=== PATIENT | female | born 1990 | race Caucasian/White ===

== ENCOUNTER 2020-04-02 14:09 | Outpatient (REF) | payer OTHER, SELFPAY ==
[2020-04-02 15:09] LABS: Eosinophils Absolute Auto 0.1 X10*3/uL (0.0-0.4); MANUAL DIFF FLAG SCAN; Mean Corpuscular Volume 78.8 fL (80-98); SCAN SMEAR FLAG 1
[2020-04-02 15:11] LABS: Basophils Percent Auto 0.5 % (0-2); Hematocrit 36.8 % (37-47); Imm Gran Abs Auto 0.01 X10*3/uL (0.00-0.03); Imm Gran Pct Auto 0.2 % (0.0-0.4); Lymphocytes Absolute Auto 1.5 X10*3/uL (1.2-4.9); Lymphocytes Percent Auto 33.9 % (20-40); Mean Corpuscular HGB Conc 32.6 g/dl (31.0-35.0); Mean Corpuscular Hemoglobin 25.7 pg (27.0-33.0); Monocytes Absolute Auto 0.4 X10*3/uL (0.1-1.2); Monocytes Percent Auto 8.4 % (2-11); Neutrophils Absolute Auto 2.4 X10*3/uL (2.0-8.3); Red Blood Count 4.67 X10*6/uL (4.20-5.50); Red Cell Distribution Width 13.9 % (11.0-16.0); White Blood Count 4.4 X10*3/uL (4.8-10.8)
[2020-04-02 15:16] LABS: PLT ABN DIST 1; Platelet Count 29 X10*3/uL (160-400)
[2020-04-02 15:18] LABS: Platelet Count 26 X10*3/uL (160-400)
[2020-04-02 15:33] LABS: SLIDE REVIEW VERIFIED
== END 2020-04-02 14:10 | disposition home or self-care (01) ==
LOC: HO.LAB 14:09
PROVIDERS: PCP Internal Medicine Medical Oncology; Visit Provider Internal Medicine Medical Oncology
DX: D69.3 Immune thrombocytopenic purpura (principal)
CPT/HCPCS: 36415; 85025; 85049

== ENCOUNTER 2020-04-16 11:12 | Outpatient (REF) | payer OTHER, SELFPAY ==
[2020-04-16 12:43] LABS: Eosinophils Absolute Auto 0.1 X10*3/uL (0.0-0.4); MANUAL DIFF FLAG SCAN; Mean Corpuscular HGB Conc 32.4 g/dl (31.0-35.0); Red Cell Distribution Width 13.8 % (11.0-16.0); SCAN SMEAR FLAG 1
[2020-04-16 12:45] LABS: Basophils Percent Auto 0.8 % (0-2); Hematocrit 36.4 % (37-47); Hemoglobin 11.8 g/dl (12.0-16.0); Imm Gran Abs Auto 0.01 X10*3/uL (0.00-0.03); Imm Gran Pct Auto 0.3 % (0.0-0.4); Lymphocytes Absolute Auto 1.5 X10*3/uL (1.2-4.9); Lymphocytes Percent Auto 38.3 % (20-40); Mean Corpuscular Hemoglobin 25.3 pg (27.0-33.0); Mean Corpuscular Volume 77.9 fL (80-98); Monocytes Absolute Auto 0.4 X10*3/uL (0.1-1.2); Monocytes Percent Auto 9.4 % (2-11); Neutrophils Absolute Auto 1.9 X10*3/uL (2.0-8.3); Neutrophils Percent Auto 49.2 % (45-73); Red Blood Count 4.67 X10*6/uL (4.20-5.50); White Blood Count 3.9 X10*3/uL (4.8-10.8)
[2020-04-16 13:22] LABS: PLT ABN DIST 1; Platelet Count 52 X10*3/uL (160-400)
[2020-04-16 14:30] LABS: SLIDE REVIEW VERIFIED
== END 2020-04-16 11:13 | disposition home or self-care (01) ==
LOC: HO.LAB 11:12
PROVIDERS: Visit Provider Internal Medicine Medical Oncology
DX: D69.3 Immune thrombocytopenic purpura (principal)
CPT/HCPCS: 36415; 85025; 85049

== ENCOUNTER 2020-05-14 11:15 | Outpatient (REF) | payer OTHER, SELFPAY ==
[2020-05-14 13:37] LABS: MANUAL DIFF FLAG NO
[2020-05-14 13:54] LABS: Basophils Percent Auto 0.5 % (0-2); Eosinophils Absolute Auto 0.1 X10*3/uL (0.0-0.4); Hemoglobin 12.1 g/dl (12.0-16.0); Imm Gran Abs Auto 0.01 X10*3/uL (0.00-0.03); Imm Gran Pct Auto 0.3 % (0.0-0.4); Lymphocytes Absolute Auto 1.3 X10*3/uL (1.2-4.9); Lymphocytes Percent Auto 33.8 % (20-40); Mean Corpuscular HGB Conc 32.7 g/dl (31.0-35.0); Mean Corpuscular Hemoglobin 25.9 pg (27.0-33.0); Mean Corpuscular Volume 79.1 fL (80-98); Monocytes Absolute Auto 0.4 X10*3/uL (0.1-1.2); Monocytes Percent Auto 9.2 % (2-11); Neutrophils Absolute Auto 2.1 X10*3/uL (2.0-8.3); Neutrophils Percent Auto 54.2 % (45-73); Red Blood Count 4.68 X10*6/uL (4.20-5.50); Red Cell Distribution Width 13.7 % (11.0-16.0); White Blood Count 3.9 X10*3/uL (4.8-10.8)
[2020-05-14 13:55] LABS: Platelet Count 87 X10*3/uL (160-400)
[2020-05-14 14:22] LABS: Platelet Count (Citrate) 76 X10*3/uL (150-310)
== END 2020-05-14 11:16 | disposition home or self-care (01) ==
LOC: HO.10HDL 11:15
PROVIDERS: PCP Internal Medicine Medical Oncology; Visit Provider Internal Medicine Medical Oncology
DX: D69.3 Immune thrombocytopenic purpura (principal)
CPT/HCPCS: 36415; 85025

== ENCOUNTER 2020-06-24 13:06 | Outpatient (REF) | payer OTHER, SELFPAY ==
[2020-06-24 13:42] LABS: MANUAL DIFF FLAG NO
[2020-06-24 13:54] LABS: Basophils Percent Auto 0.7 % (0-2); Eosinophils Absolute Auto 0.1 X10*3/uL (0.0-0.4); Eosinophils Percent Auto 2.5 % (0-4); Hemoglobin 12.7 g/dl (12.0-16.0); Imm Gran Abs Auto 0.01 X10*3/uL (0.00-0.03); Imm Gran Pct Auto 0.2 % (0.0-0.4); Lymphocytes Absolute Auto 1.5 X10*3/uL (1.2-4.9); Lymphocytes Percent Auto 33.3 % (20-40); Mean Corpuscular HGB Conc 31.8 g/dl (31.0-35.0); Mean Corpuscular Hemoglobin 24.9 pg (27.0-33.0); Mean Corpuscular Volume 78.4 fL (80-98); Mean Platelet Volume 12.5 fL (9.4-12.3); Monocytes Absolute Auto 0.3 X10*3/uL (0.1-1.2); Monocytes Percent Auto 7.7 % (2-11); Neutrophils Absolute Auto 2.5 X10*3/uL (2.0-8.3); Neutrophils Percent Auto 55.6 % (45-73); Platelet Count 279 X10*3/uL (160-400); Red Cell Distribution Width 13.5 % (11.0-16.0); White Blood Count 4.4 X10*3/uL (4.8-10.8)
[2020-06-24 14:14] LABS: Platelet Count (Citrate) 261 X10*3/uL (150-310)
== END 2020-06-24 13:07 | disposition home or self-care (01) ==
LOC: HO.LAB 13:06
PROVIDERS: PCP Internal Medicine Medical Oncology; Visit Provider Internal Medicine Medical Oncology
DX: D69.3 Immune thrombocytopenic purpura (principal)
CPT/HCPCS: 36415; 85025

== ENCOUNTER 2020-07-08 13:23 | Outpatient (REF) | payer OTHER, SELFPAY ==
[2020-07-08 14:21] LABS: Eosinophils Absolute Auto 0.2 X10*3/uL (0.0-0.4); Imm Gran Abs Auto 0.03 X10*3/uL (0.00-0.03); Imm Gran Pct Auto 0.6 % (0.0-0.4)
[2020-07-08 14:23] LABS: Basophils Percent Auto 0.6 % (0-2); Hematocrit 36.2 % (37-47); Hemoglobin 11.9 g/dl (12.0-16.0); Lymphocytes Absolute Auto 1.5 X10*3/uL (1.2-4.9); Lymphocytes Percent Auto 28.3 % (20-40); Mean Corpuscular HGB Conc 32.9 g/dl (31.0-35.0); Mean Corpuscular Hemoglobin 25.4 pg (27.0-33.0); Mean Corpuscular Volume 77.4 fL (80-98); Monocytes Absolute Auto 0.4 X10*3/uL (0.1-1.2); Monocytes Percent Auto 7.9 % (2-11); Neutrophils Absolute Auto 3.2 X10*3/uL (2.0-8.3); Neutrophils Percent Auto 59.6 % (45-73); Platelet Count 123 X10*3/uL (160-400); Red Blood Count 4.68 X10*6/uL (4.20-5.50); Red Cell Distribution Width 13.4 % (11.0-16.0); White Blood Count 5.3 X10*3/uL (4.8-10.8)
[2020-07-08 14:37] LABS: MANUAL DIFF FLAG NO
[2020-07-08 14:41] LABS: Alanine Aminotransferase 18 U/L (0-31); Albumin Level 3.9 g/dL (3.5-5.0); Alkaline Phosphatase 107 U/L (39-117); Anion Gap 11 (12-20); Aspartate Amino Transferase 16 U/L (5-31); Bilirubin Total 0.6 mg/dL (0.0-1.0); Blood Urea Nitrogen 13 mg/dL (9-16); Calcium 8.4 mg/dL (8.4-10.2); Carbon Dioxide 28 mmol/L (22-29); Chloride 106 mmol/L (96-108); Estimated Glomerular Filt Rate > 60; Glucose Random 90 mg/dL (60-115); Sodium 141 mmol/L (135-145); Total Protein 7.1 g/dL (6.5-8.0)
== END 2020-07-08 13:24 | disposition home or self-care (01) ==
LOC: HO.LAB 13:23
PROVIDERS: Visit Provider Internal Medicine Medical Oncology
DX: D69.3 Immune thrombocytopenic purpura (principal)
CPT/HCPCS: 36415; 80053; 85025

== ENCOUNTER 2020-09-09 15:49 | Outpatient (REF) | payer OTHER, SELFPAY ==
[2020-09-09 16:50] LABS: Basophils Percent Auto 0.4 % (0-2); MANUAL DIFF FLAG SCAN; SCAN SMEAR FLAG 1
[2020-09-09 16:52] LABS: Eosinophils Absolute Auto 0.1 X10*3/uL (0.0-0.4); Eosinophils Percent Auto 1.6 % (0-4); Hematocrit 38.4 % (37-47); Hemoglobin 12.6 g/dl (12.0-16.0); Imm Gran Abs Auto 0.01 X10*3/uL (0.00-0.03); Imm Gran Pct Auto 0.2 % (0.0-0.4); Lymphocytes Absolute Auto 1.4 X10*3/uL (1.2-4.9); Lymphocytes Percent Auto 31.7 % (20-40); Mean Corpuscular HGB Conc 32.8 g/dl (31.0-35.0); Mean Corpuscular Hemoglobin 25.8 pg (27.0-33.0); Mean Corpuscular Volume 78.5 fL (80-98); Monocytes Absolute Auto 0.4 X10*3/uL (0.1-1.2); Monocytes Percent Auto 9.4 % (2-11); Neutrophils Absolute Auto 2.5 X10*3/uL (2.0-8.3); Neutrophils Percent Auto 56.7 % (45-73); Red Blood Count 4.89 X10*6/uL (4.20-5.50); White Blood Count 4.5 X10*3/uL (4.8-10.8)
[2020-09-09 16:57] LABS: PLT ABN DIST 1
[2020-09-09 17:19] LABS: Platelet Count (Citrate) 29 X10*3/uL (150-310)
[2020-09-09 18:06] LABS: Platelet Count 36 X10*3/uL (160-400)
[2020-09-09 18:07] LABS: SLIDE REVIEW VERIFIED
== END 2020-09-09 15:50 | disposition home or self-care (01) ==
LOC: HO.LAB 15:49
PROVIDERS: PCP Internal Medicine Medical Oncology; Visit Provider Internal Medicine Medical Oncology
DX: D69.3 Immune thrombocytopenic purpura (principal)
CPT/HCPCS: 36415; 85025

== ENCOUNTER 2020-09-22 16:08 | Outpatient (REF) | payer OTHER, SELFPAY ==
[2020-09-22 16:24] LABS: MANUAL DIFF FLAG NO
[2020-09-22 16:27] LABS: Basophils Percent Auto 0.4 % (0-2); Eosinophils Percent Auto 0.8 % (0-4); Hematocrit 39.5 % (37-47); Hemoglobin 12.6 g/dl (12.0-16.0); Imm Gran Abs Auto 0.01 X10*3/uL (0.00-0.03); Imm Gran Pct Auto 0.2 % (0.0-0.4); Lymphocytes Absolute Auto 1.8 X10*3/uL (1.2-4.9); Mean Corpuscular HGB Conc 31.9 g/dl (31.0-35.0); Mean Corpuscular Hemoglobin 25.4 pg (27.0-33.0); Mean Corpuscular Volume 79.5 fL (80-98); Mean Platelet Volume 11.9 fL (9.4-12.3); Monocytes Absolute Auto 0.5 X10*3/uL (0.1-1.2); Monocytes Percent Auto 9.3 % (2-11); Neutrophils Absolute Auto 2.9 X10*3/uL (2.0-8.3); Neutrophils Percent Auto 55.3 % (45-73); Platelet Count 283 X10*3/uL (160-400); Red Blood Count 4.97 X10*6/uL (4.20-5.50); Red Cell Distribution Width 13.7 % (11.0-16.0); White Blood Count 5.2 X10*3/uL (4.8-10.8)
[2020-09-22 16:34] LABS: Platelet Count (Citrate) 282 X10*3/uL (150-310)
== END 2020-09-22 16:09 | disposition home or self-care (01) ==
LOC: HO.LAB 16:08
PROVIDERS: Visit Provider Internal Medicine Medical Oncology
DX: D69.3 Immune thrombocytopenic purpura (principal)
CPT/HCPCS: 36415; 85025

== ENCOUNTER 2020-10-09 10:01 | Outpatient (REF) | payer OTHER, SELFPAY ==
[2020-10-09 10:58] LABS: Imm Gran Abs Auto 0.02 X10*3/uL (0.00-0.03); Imm Gran Pct Auto 0.4 % (0.0-0.4); MANUAL DIFF FLAG SCAN; Mean Corpuscular Volume 79.1 fL (80-98); Monocytes Percent Auto 10.5 % (2-11); Red Cell Distribution Width 13.6 % (11.0-16.0); SCAN SMEAR FLAG 1
[2020-10-09 11:00] LABS: Basophils Percent Auto 0.6 % (0-2); Eosinophils Absolute Auto 0.1 X10*3/uL (0.0-0.4); Eosinophils Percent Auto 2.5 % (0-4); Hematocrit 39.1 % (37-47); Hemoglobin 12.4 g/dl (12.0-16.0); Lymphocytes Absolute Auto 1.5 X10*3/uL (1.2-4.9); Lymphocytes Percent Auto 31.4 % (20-40); Mean Corpuscular HGB Conc 31.7 g/dl (31.0-35.0); Mean Corpuscular Hemoglobin 25.1 pg (27.0-33.0); Mean Platelet Volume 13.8 fL (9.4-12.3); Monocytes Absolute Auto 0.5 X10*3/uL (0.1-1.2); Neutrophils Absolute Auto 2.6 X10*3/uL (2.0-8.3); Neutrophils Percent Auto 54.6 % (45-73); Platelet Count 134 X10*3/uL (160-400); Red Blood Count 4.94 X10*6/uL (4.20-5.50); White Blood Count 4.8 X10*3/uL (4.8-10.8)
[2020-10-09 11:01] LABS: PLT ABN DIST 1
[2020-10-09 11:04] LABS: Platelet Count (Citrate) 139 X10*3/uL (150-310)
[2020-10-09 12:56] LABS: SLIDE REVIEW VERIFIED
== END 2020-10-09 10:02 | disposition home or self-care (01) ==
LOC: HO.LAB 10:01
PROVIDERS: PCP Internal Medicine Medical Oncology; Visit Provider Internal Medicine Medical Oncology
DX: D69.3 Immune thrombocytopenic purpura (principal)
CPT/HCPCS: 36415; 85025

== ENCOUNTER 2020-10-27 13:45 | Outpatient (REF) | payer OTHER, SELFPAY ==
[2020-10-27 14:18] LABS: Basophils Percent Auto 0.6 % (0-2); Imm Gran Abs Auto 0.07 X10*3/uL (0.00-0.03); Imm Gran Pct Auto 1.1 % (0.0-0.4); MANUAL DIFF FLAG SCAN; SCAN SMEAR FLAG 1
[2020-10-27 14:19] LABS: Eosinophils Absolute Auto 0.2 X10*3/uL (0.0-0.4); Eosinophils Percent Auto 2.3 % (0-4); Hematocrit 37.8 % (37-47); Hemoglobin 12.1 g/dl (12.0-16.0); Lymphocytes Absolute Auto 1.5 X10*3/uL (1.2-4.9); Lymphocytes Percent Auto 22.7 % (20-40); Mean Corpuscular Hemoglobin 25.2 pg (27.0-33.0); Mean Corpuscular Volume 78.8 fL (80-98); Mean Platelet Volume 13.5 fL (9.4-12.3); Monocytes Absolute Auto 0.7 X10*3/uL (0.1-1.2); Monocytes Percent Auto 10.6 % (2-11); Neutrophils Absolute Auto 4.1 X10*3/uL (2.0-8.3); Neutrophils Percent Auto 62.7 % (45-73); Red Cell Distribution Width 13.5 % (11.0-16.0); White Blood Count 6.5 X10*3/uL (4.8-10.8)
[2020-10-27 14:40] LABS: Platelet Count (Citrate) 61 X10*3/uL (150-310)
[2020-10-27 14:41] LABS: PLT ABN DIST 1; Platelet Count 66 X10*3/uL (160-400)
[2020-10-27 14:49] LABS: SLIDE REVIEW VERIFIED
== END 2020-10-27 13:46 | disposition home or self-care (01) ==
LOC: HO.LAB 13:45
PROVIDERS: PCP Internal Medicine Medical Oncology; Visit Provider Internal Medicine Medical Oncology
DX: D69.3 Immune thrombocytopenic purpura (principal); D50.9 Iron deficiency anemia, unspecified
CPT/HCPCS: 36415; 85025

== ENCOUNTER 2020-12-31 13:28 | Outpatient (REF) | payer OTHER, SELFPAY ==
[2020-12-31 13:58] LABS: MANUAL DIFF FLAG NO
[2020-12-31 14:08] LABS: Basophils Percent Auto 0.3 % (0-2); Eosinophils Absolute Auto 0.2 X10*3/uL (0.0-0.4); Eosinophils Percent Auto 1.5 % (0-4); Hematocrit 37.6 % (37-47); Hemoglobin 12.3 g/dl (12.0-16.0); Imm Gran Abs Auto 0.11 X10*3/uL (0.00-0.03); Imm Gran Pct Auto 1.1 % (0.0-0.4); Lymphocytes Absolute Auto 1.1 X10*3/uL (1.2-4.9); Lymphocytes Percent Auto 11.4 % (20-40); Mean Corpuscular HGB Conc 32.7 g/dl (31.0-35.0); Mean Corpuscular Hemoglobin 25.5 pg (27.0-33.0); Monocytes Absolute Auto 0.7 X10*3/uL (0.1-1.2); Monocytes Percent Auto 6.5 % (2-11); Neutrophils Absolute Auto 7.9 X10*3/uL (2.0-8.3); Neutrophils Percent Auto 79.2 % (45-73); Red Blood Count 4.82 X10*6/uL (4.20-5.50); Red Cell Distribution Width 14.9 % (11.0-16.0)
[2020-12-31 14:25] LABS: Platelet Count 24 X10*3/uL (160-400)
== END 2020-12-31 13:29 | disposition home or self-care (01) ==
LOC: HO.LAB 13:28
PROVIDERS: PCP Internal Medicine Medical Oncology; Visit Provider Internal Medicine Medical Oncology
DX: D69.3 Immune thrombocytopenic purpura (principal)
CPT/HCPCS: 36415; 85025

== ENCOUNTER 2021-02-12 16:08 | Outpatient (REF) | payer OTHER, SELFPAY ==
[2021-02-12 16:46] LABS: Basophils Percent Auto 0.4 % (0-2); MANUAL DIFF FLAG SCAN; Mean Corpuscular HGB Conc 33.2 g/dl (31.0-35.0); Mean Corpuscular Hemoglobin 26.1 pg (27.0-33.0); Red Cell Distribution Width 14.3 % (11.0-16.0); SCAN SMEAR FLAG 1
[2021-02-12 16:48] LABS: Eosinophils Absolute Auto 0.1 X10*3/uL (0.0-0.4); Eosinophils Percent Auto 1.1 % (0-4); Hematocrit 38.6 % (37-47); Hemoglobin 12.8 g/dl (12.0-16.0); Imm Gran Abs Auto 0.02 X10*3/uL (0.00-0.03); Imm Gran Pct Auto 0.4 % (0.0-0.4); Lymphocytes Absolute Auto 1.4 X10*3/uL (1.2-4.9); Lymphocytes Percent Auto 31.2 % (20-40); Mean Corpuscular Volume 78.8 fL (80-98); Monocytes Absolute Auto 0.4 X10*3/uL (0.1-1.2); Monocytes Percent Auto 9.2 % (2-11); Neutrophils Absolute Auto 2.6 X10*3/uL (2.0-8.3); Neutrophils Percent Auto 57.7 % (45-73); White Blood Count 4.5 X10*3/uL (4.8-10.8)
[2021-02-12 16:51] LABS: PLT ABN DIST 1
[2021-02-12 16:54] LABS: Platelet Count (Citrate) 22 X10*3/uL (150-310); SLIDE REVIEW VERIFIED
[2021-02-12 17:03] LABS: UPreg QC Valid YES; Urine Pregnancy POSITIVE (NEGATIVE)
== END 2021-02-12 16:09 | disposition home or self-care (01) ==
LOC: HO.LAB 16:08
PROVIDERS: PCP Internal Medicine Medical Oncology; Visit Provider Internal Medicine Medical Oncology
DX: D69.3 Immune thrombocytopenic purpura (principal); N91.2 Amenorrhea, unspecified
CPT/HCPCS: 36415; 81025; 85025

== ENCOUNTER 2021-02-14 15:41 | Emergency (ER) | payer OTHER, SELFPAY ==
[2021-02-14 18:20] VITALS: BP 101/68; PULSE 90; RESP 16; TEMP 36.4; O2SAT 100; BMI 33.0
[2021-02-14 19:02] LABS: MANUAL DIFF FLAG NO
[2021-02-14 19:05] LABS: Basophils Percent Auto 0.4 % (0-2); Eosinophils Absolute Auto 0.1 X10*3/uL (0.0-0.4); Eosinophils Percent Auto 1.2 % (0-4); Hematocrit 37.8 % (37-47); Hemoglobin 12.7 g/dl (12.0-16.0); Imm Gran Abs Auto 0.01 X10*3/uL (0.00-0.03); Imm Gran Pct Auto 0.1 % (0.0-0.4); Lymphocytes Absolute Auto 1.5 X10*3/uL (1.2-4.9); Lymphocytes Percent Auto 21.4 % (20-40); Mean Corpuscular HGB Conc 33.6 g/dl (31.0-35.0); Mean Corpuscular Hemoglobin 26.4 pg (27.0-33.0); Mean Corpuscular Volume 78.6 fL (80-98); Monocytes Absolute Auto 0.5 X10*3/uL (0.1-1.2); Monocytes Percent Auto 7.6 % (2-11); Neutrophils Absolute Auto 4.8 X10*3/uL (2.0-8.3); Neutrophils Percent Auto 69.3 % (45-73); Platelet Count 25 X10*3/uL (160-400); Red Blood Count 4.81 X10*6/uL (4.20-5.50); Red Cell Distribution Width 14.1 % (11.0-16.0); White Blood Count 6.9 X10*3/uL (4.8-10.8)
[2021-02-14 19:30] VITALS: BP 91/54; PULSE 79; RESP 18; TEMP 36.9; O2SAT 98
[2021-02-14 19:35] LABS: Appearance Urine TURBID; Color Urine RED; Glucose Urine UA NEG (NEG); Leukocyte Esterase Urine 1+ (NEG); Nitrite Urine POS (NEG); PH 6.5 (5.0-8.0); Specific Gravity - Urine >= 1.030 (1.005-1.025); UACC Culture Trigger YES; Urine Blood 3+ (NEG); Urine Ketones 5 MG/DL (NEG); Urine Protein 3+ MG/DL (NEG-TRACE)
[2021-02-14 19:46] LABS: Bacteria Urine 2+ /LPF; Calcium Oxalate Crystals Urine 1+ /LPF; Mucus Urine 1+ /LPF; RBC Urine TNTC /HPF (0); Squamous Epithelial Cell Urine 2+ /LPF
[2021-02-14 19:50] LABS: Alanine Aminotransferase 16 U/L (0-31); Albumin Level 4.4 g/dL (3.5-5.0); Alkaline Phosphatase 96 U/L (39-117); Anion Gap 11 (12-20); Aspartate Amino Transferase 13 U/L (5-31); Bilirubin Total 0.6 mg/dL (0.0-1.0); Blood Urea Nitrogen 13 mg/dL (9-16); Calcium 9.5 mg/dL (8.4-10.2); Carbon Dioxide 26 mmol/L (22-29); Chloride 105 mmol/L (96-108); Estimated Glomerular Filt Rate > 60; Glucose Random 99 mg/dL (60-115); Potassium 3.8 mmol/L (3.3-5.1); Sodium 138 mmol/L (135-145); Total Protein 7.6 g/dL (6.5-8.0)
[2021-02-14 19:56] LABS: HCG Quantitative 8 mIU/mL
--- NOTE | 2021-02-14 20:07 | ED_ITS ---
HPI - General Adult General Chief complaint: Vaginal Bleeding Stated complaint: Vaginal bleeding/Preg. Time Seen by Provider: 02/14/21 18:24 Source: patient Mode of arrival: ambulatory Limitations: no limitations History of Present Illness HPI narrative: 30-year-old female who presents emergency department for evalu ation of abdominal pain and vaginal bleeding. The patient is a G2, P2. She states that her last menstrual period was on 01/07/2021 and she is approximately 2 weeks late for her menses. She took a home test was positive. She was seen by her doctor, Dr. Buchanan and had laboratory evaluation and a urine test which was positive on 02/12/2021. The patient states that she had lower abdominal pain today and felt like she had to have a bowel movement. She then moved her bowels and this relieved her pain. She then states that she wiped her vaginal area and noted bright red blood. She states that since then she has been having a cramping sensation in her lower abdomen and continues to have bleeding. The patient does have a history of ITP with platelet counts that range from [id number] to [id number]. She states that she has not had any difficulty with bleeding and did not have any difficulty with bleeding during her 1st 2 pregnancies. She denied fever, chills, chest pain, shortness of breath, nausea, vomiting, lightheadedness or dizziness. Related Data Allergies Allergy/AdvReac Type Severity Reaction Status Date / Time aspirin [ASPIRIN] Allergy Unknown PT HAS H/O Verified 02/14/21 18:22 LOW PALTELETS Review of Systems Review of Systems: Yes all other systems are reviewed and are negative [facility] Past Medical History [facility] Narrative: Social history: She denies tobacco use. She occasionally drinks alcohol. She denies drug use. Medical History Chronic ITP (idiopathic thrombocytopenia) Social History Social History Advance Directives: No Advance Directives Information Provided: No Patient : Yes (unk gestation) Physical Exam Vital Signs: Vital Signs: Last Vital Signs Temp 98.4 F 02/14/21 19:30 Pulse 79 02/14/21 19:30 Resp 18 02/14/21 19:30 BP 91/54 L 02/14/21 19:30 Pulse Ox 98 02/14/21 19:30 Body Mass Index 33.0 Const: General: cooperative and no acute distress Or ientation/consciousness: oriented to person and oriented to place Limitat ions: no limitations HENMT: Head: Yes normal to inspection, Yes normocephalic and Yes atraumatic Ears: external ears normal General nose exam: Normal external nose present Face and sinus: Yes normal facial exam Mouth: Normal oral and palatal mucosa present Throat: Yes posterior oropharynx normal Eyes: General: appearance normal, both eyes and all related structures Pupils: Equal, round and reactive pupils present Neck: Neck: Yes normal visual inspection, Yes no lymphadenopathy, Yes trachea midline and Yes supple Chest: Chest palpation & inspection: normal inspection of the chest and normal palpation of entire chest wall Resp: Effort & Inspection: normal respiratory effort and able to speak in complete sentences Auscultation: clear to auscultation bilaterally Cardio: Rate: regular rate Rhythm: regular rhythm Heart sounds: S1 normal heart sound present, S2 normal heart sound present and no murmurs GI: Inspection: Yes normal to inspection Palpation (GI): Soft to palpation, Tenderness to palpation present (GI) periumbilically (Mild) and suprapubicly (Moderate) and no guarding Auscultation: normal bowel sounds : General: Yes no CVA tenderness Back/Spine/Pelvis: Back: no CVA tenderness Skin: General skin exam: no rashes or lesions noted Neuro: General: oriented to person and oriented to place Cranial nerves: Yes CN's II-XII intact bilaterally and Yes Equal, round and reactive pupils present Cognition (Neuro): normal cognition Motor exam (neuro): 5/5 motor strength present throughout Extrem: General: Yes normal to inspection Psych: Appearance: grossly normal Speech and movement: Normal speech and movement present Affect: normal affect Attitude: cooperative Thought process: Normal thought process present Thought content: Normal thought content present Course Course Course Narrative: 30-year-old female who is a G2, P2, last menstrual period was 01/07/2021, she approximately 2 weeks late for her menses, she had a positive home test and had a positive test done by her PCP on 02/12/2021 who presents emergency department for evaluation of lower abdominal pain and vaginal bleeding. Vital signs were normal. Abdominal exam did reveal periumbilical and suprapubic tenderness. Laboratory evaluation was consistent with [place] [address] otherwise was unremarkable. Patient's quantitative beta-hCG was only 8. I did discuss this low quantitative beta-hCG with the patient. At this point I suspect the patient was not and may have had a false positive test. It is also possible however that the patient may have been , had demise and is now having a miscarriage. The patient was given Tylenol for pain. She was advised to contact her OBGYN on Tuesday morning for follow-up early next week for repeat quantitative beta-hCG and for possible ultrasound as an outpatient. The patient was discharged home. The patient was given verbal and printed instructions prior to discharge. The patient was given verbal and printed instructions prior to discharge. The patient was advised to follow-up with her PCP in 2 days and to return to the emergency department if her symptoms get worse or if she develops any new symptoms that are concerning to her. Medical Decision Making Lab Data Result diagrams: 02/14/21 18:54 02/14/21 19:25 Labs: Lab Results 02/14/21 02/14/21 02/14/21 Range/Units 18:54 19:25 19:26 WBC 6.9 (4.8-10.8) X10*3/uL RBC 4.81 (4.20-5.50) X10*6/uL Hgb 12.7 (12.0-16.0) g/dl Hct 37.8 (37-47) % MCV 78.6 L (80-98) fL MCH 26.4 L (27.0-33.0) pg MCHC 33.6 (31.0-35.0) g/dl RDW 14.1 (11.0-16.0) % Plt Count 25 L (160-400) X10*3/uL MPV TNP Immature Gran % (Auto) 0.1 (0.0-0.4) % Neut % (Auto) 69.3 (45-73) % Lymph % (Auto) 21.4 (20-40) % [place] % (Auto) 7.6 (2-11) % Eos % (Auto) 1.2 (0-4) % Baso % (Auto) 0.4 (0-2) % Lymph # (Auto) 1.5 (1.2-4.9) X10*3/uL [place] # (Auto) 0.5 (0.1-1.2) X10*3/uL Eos # (Auto) 0.1 (0.0-0.4) X10*3/uL Baso # (Auto) 0.0 (0.0-0.2) X10*3/uL Abs Immat Gran (auto) 0.01 (0.00-0.03) X10*3/uL Absolute Neuts (auto) 4.8 (2.0-8.3) X10*3/uL Absolute Nucleated RBC 0.000 (0.0-0.012) X10*3/uL Nucleated RBC % (auto) 0.0 (0.0-0.2) /100WBC Sodium 138 (135-145) mmol/L Potassium 3.8 (3.3-5.1) mmol/L Chloride 105 (96-108) mmol/L Carbon Dioxide 26 (22-29) mmol/L Anion Gap 11 L (12-20) BUN 13 (9-16) mg/dL Creatinine 0.70 (0.5-1.4) mg/dL Estim Creat Clear Calc 110.0 Estimated GFR > 60 Random Glucose 99 (60-115) mg/dL Calcium 9.5 D (8.4-10.2) mg/dL Total Bilirubin 0.6 (0.0-1.0) mg/dL AST 13 (5-31) U/L ALT 16 (0-31) U/L Alkaline Phosphatase 96 (39-117) U/L Total Protein 7.6 (6.5-8.0) g/dL Albumin 4.4 (3.5-5.0) g/dL Beta HCG, Quant 8 mIU/mL Urine Color RED Urine Appearance TURBID Urine pH 6.5 (5.0-8.0) Ur Specific [place] >= 1.030 H (1.005-1.025) Urine Protein 3+ H (NEG-TRACE) MG/DL Urine Glucose (UA) NEG (NEG) MG/DL Urine Ketones 5 (NEG) MG/DL Urine Blood 3+ H (NEG) Urine Nitrite POS H (NEG) Ur Leukocyte Esterase 1+ H (NEG) Urine RBC TNTC H (0) /HPF Urine WBC 5-9 H (0-4) /HPF Ur Squamous Epith Cells 2+ /LPF Calcium Oxalate Crystal 1+ /LPF Urine Bacteria 2+ /LPF Urine Mucus 1+ /LPF Discharge Plan Discharge Clinical Impression: Vaginal bleeding Abdominal pain Qualifiers: Abdominal location: lower abdomen, unspecified Qualified Code(s): R10.30 - Lower abdominal pain, unspecified Patient Disposition: Home, Self-Care Instructions: Miscarriage (ED) Additional Instructions: Your blood work revealed that you are not anemic. Your [place] count was 86969 this is consistent with your ITP. Your quantitative beta HCG (blood test) was only 8. If you were 4-6 weeks the quantitative beta-hCG should be between 1000 to 6000 and sometimes higher. Given this low number and the fact that your bleeding, I suspect that maybe your other tests were falsely negative in you are not . The other possibility is that you may have been , the baby stops growing and you are now having a miscarriage. Take Tylenol (acetaminophen) 500 mg pills, 2 pills every 4 to 6 hours as needed for pain. Call your OBGYN on Tuesday for a follow-up early next week to get a repeat quantitative beta-hCG. If your OBGYN thinks that is appropriate, they can get and ultrasound as an outpatient. Please return to the emergency department if you have increased abdominal pain, fever, chills, if you are soaking through more than 2 pads per hour, if you feel worse in any way or if you develop any new symptoms that are concerning to you. I am not sure if you had a miscarriage, but please follow the miscarriage instructions that we printed up for you.
[2021-02-14] MEDS: Acetaminophen 325 MG TABLET 975 MG PO (20:41)
== END 2021-02-14 20:47 | disposition home or self-care (01) ==
PROVIDERS: Emergency Provider Emergency Medicine Emergency Medical Services; PCP Internal Medicine Medical Oncology
DX: N93.9 Abnormal uterine and vaginal bleeding, unspecified (principal); R10.30 Lower abdominal pain, unspecified
CPT/HCPCS: 36415; 80053; 81001; 84702; 85025; 87086; 99283; 99284

== ENCOUNTER 2021-02-17 11:22 | Outpatient (REF) | payer OTHER, SELFPAY ==
[2021-02-17 12:11] LABS: HCG Quantitative < 2 mIU/mL
== END 2021-02-17 11:23 | disposition home or self-care (01) ==
LOC: HO.LAB 11:22
PROVIDERS: PCP Internal Medicine Medical Oncology; Visit Provider Advanced Practice Midwife
DX: O20.0 Threatened abortion (principal); Z3A.00 Weeks of gestation of pregnancy not specified
CPT/HCPCS: 36415; 84702

== ENCOUNTER → 2021-02-19 09:00 | Outpatient (BNVA) | payer OTHER, SELFPAY | PROVIDERS: PCP Internal Medicine Medical Oncology; Visit Provider Advanced Practice Midwife ==

== ENCOUNTER 2021-03-04 10:07 | Outpatient (REF) | payer OTHER, SELFPAY | END 2021-03-04 10:08 | disposition home or self-care (01) | LOC: HO.LAB 10:07 | PROVIDERS: PCP Internal Medicine Medical Oncology; Visit Provider Internal Medicine | DX: Z20.822 Contact with and (suspected) exposure to COVID-19 (principal) | CPT/HCPCS: C9803; U0003; U0005 ==

== ENCOUNTER 2021-03-17 14:06 | Outpatient (REF) | payer OTHER, SELFPAY ==
[2021-03-17 14:54] LABS: Imm Gran Abs Auto 0.01 X10*3/uL (0.00-0.03); Imm Gran Pct Auto 0.2 % (0.0-0.4); MANUAL DIFF FLAG SCAN; Monocytes Absolute Auto 0.4 X10*3/uL (0.1-1.2); Monocytes Percent Auto 7.7 % (2-11); Red Cell Distribution Width 13.4 % (11.0-16.0); SCAN SMEAR FLAG 1
[2021-03-17 14:56] LABS: Basophils Percent Auto 0.4 % (0-2); Eosinophils Absolute Auto 0.1 X10*3/uL (0.0-0.4); Eosinophils Percent Auto 1.5 % (0-4); Hematocrit 38.8 % (37-47); Hemoglobin 12.6 g/dl (12.0-16.0); Lymphocytes Absolute Auto 1.3 X10*3/uL (1.2-4.9); Lymphocytes Percent Auto 24.2 % (20-40); Mean Corpuscular HGB Conc 32.5 g/dl (31.0-35.0); Mean Corpuscular Hemoglobin 25.8 pg (27.0-33.0); Mean Corpuscular Volume 79.3 fL (80-98); Neutrophils Absolute Auto 3.5 X10*3/uL (2.0-8.3); Red Blood Count 4.89 X10*6/uL (4.20-5.50); White Blood Count 5.3 X10*3/uL (4.8-10.8)
[2021-03-17 15:02] LABS: PLT ABN DIST 1
[2021-03-17 15:13] LABS: Platelet Count 27 X10*3/uL (160-400)
[2021-03-17 15:16] LABS: SLIDE REVIEW VERIFIED
[2021-03-17 15:28] LABS: HCG Quantitative < 2 mIU/mL
[2021-03-17 15:30] LABS: Platelet Count (Citrate) 20 X10*3/uL (150-310)
== END 2021-03-17 14:07 | disposition home or self-care (01) ==
LOC: HO.LAB 14:06
PROVIDERS: PCP Internal Medicine Medical Oncology; Visit Provider Internal Medicine Medical Oncology
DX: N91.2 Amenorrhea, unspecified (principal)
CPT/HCPCS: 36415; 84702; 85025

== ENCOUNTER 2021-03-26 16:12 | Outpatient (REF) | payer OTHER, SELFPAY ==
[2021-03-26 16:56] LABS: Basophils Percent Auto 0.3 % (0-2); Imm Gran Abs Auto 0.01 X10*3/uL (0.00-0.03); Imm Gran Pct Auto 0.3 % (0.0-0.4); MANUAL DIFF FLAG SCAN; SCAN SMEAR FLAG 1
[2021-03-26 16:58] LABS: Eosinophils Absolute Auto 0.1 X10*3/uL (0.0-0.4); Eosinophils Percent Auto 1.6 % (0-4); Hematocrit 36.7 % (37-47); Lymphocytes Absolute Auto 1.1 X10*3/uL (1.2-4.9); Mean Corpuscular HGB Conc 32.7 g/dl (31.0-35.0); Mean Corpuscular Hemoglobin 26.1 pg (27.0-33.0); Monocytes Absolute Auto 0.3 X10*3/uL (0.1-1.2); Monocytes Percent Auto 8.3 % (2-11); Neutrophils Absolute Auto 2.3 X10*3/uL (2.0-8.3); Neutrophils Percent Auto 60.5 % (45-73); PLT ABN DIST 1; Red Blood Count 4.59 X10*6/uL (4.20-5.50); Red Cell Distribution Width 13.3 % (11.0-16.0)
[2021-03-26 16:59] LABS: White Blood Count 3.9 X10*3/uL (4.8-10.8)
[2021-03-26 17:03] LABS: SLIDE REVIEW VERIFIED
[2021-03-26 17:08] LABS: Platelet Count (Citrate) 167 X10*3/uL (150-310)
== END 2021-03-26 16:13 | disposition home or self-care (01) ==
LOC: HO.LAB 16:12
PROVIDERS: PCP Internal Medicine Medical Oncology; Visit Provider Internal Medicine Medical Oncology
DX: D69.3 Immune thrombocytopenic purpura (principal)
CPT/HCPCS: 36415; 85025

== ENCOUNTER 2021-04-02 12:25 | Emergency (ER) | payer OTHER, SELFPAY ==
--- NOTE | ~2021-04-02 | US_ITS ---
EXAMINATION: US ABDOMEN LIMITED CLINICAL INFORMATION: Question cholecystitis. COMPARISON: CT of January 10, 2019 TECHNIQUE: Real-time imaging of the gallbladder and common bile duct FINDINGS: GALLBLADDER: Normal. The gallbladder is physiologically distended without evidence of stones, sludge, polyps, wall thickening or pericholecystic fluid. No tenderness to palpation was elicited with scanning of the gallbladder. COMMON BILE DUCT: Normal in caliber measuring 0.3 cm in diameter. US/US abdomen limited IMPRESSION: No evidence of acute cholecystitis.
[2021-04-02 12:40] VITALS: BP 102/72; PULSE 73; RESP 18; TEMP 36.8; O2SAT 99; BMI 32.3
[2021-04-02 14:08] LABS: MANUAL DIFF FLAG NO
[2021-04-02 14:13] LABS: Appearance Urine CLEAR; Color Urine YELLOW; Glucose Urine UA NEG (NEG); Leukocyte Esterase Urine NEG (NEG); Nitrite Urine NEG (NEG); Specific Gravity - Urine 1.015 (1.005-1.025); UACC Culture Trigger NO; Urine Blood TRACE (NEG); Urine Ketones NEG (NEG); Urine Protein NEG (NEG-TRACE)
[2021-04-02 14:14] LABS: UPreg QC Valid YES; Urine Pregnancy NEGATIVE (NEGATIVE)
[2021-04-02 14:15] LABS: Basophils Percent Auto 0.5 % (0-2); Eosinophils Absolute Auto 0.1 X10*3/uL (0.0-0.4); Eosinophils Percent Auto 1.2 % (0-4); Hemoglobin 13.6 g/dl (12.0-16.0); Imm Gran Abs Auto 0.01 X10*3/uL (0.00-0.03); Imm Gran Pct Auto 0.2 % (0.0-0.4); Lymphocytes Absolute Auto 1.3 X10*3/uL (1.2-4.9); Lymphocytes Percent Auto 31.4 % (20-40); Mean Corpuscular HGB Conc 33.2 g/dl (31.0-35.0); Mean Corpuscular Hemoglobin 26.6 pg (27.0-33.0); Mean Corpuscular Volume 80.1 fL (80-98); Mean Platelet Volume 13.7 fL (9.4-12.3); Monocytes Absolute Auto 0.4 X10*3/uL (0.1-1.2); Monocytes Percent Auto 9.7 % (2-11); Neutrophils Absolute Auto 2.3 X10*3/uL (2.0-8.3); Platelet Count 212 X10*3/uL (160-400); Red Blood Count 5.12 X10*6/uL (4.20-5.50); Red Cell Distribution Width 13.2 % (11.0-16.0)
[2021-04-02 14:24] LABS: Squamous Epithelial Cell Urine 1+ /LPF; WBC Urine 0-2 /HPF (0-4)
[2021-04-02 14:29] LABS: Alanine Aminotransferase 21 U/L (0-31); Albumin Level 4.5 g/dL (3.5-5.0); Alkaline Phosphatase 93 U/L (39-117); Anion Gap 11 (12-20); Aspartate Amino Transferase 17 U/L (5-31); Bilirubin Total 0.7 mg/dL (0.0-1.0); Blood Urea Nitrogen 9 mg/dL (9-16); Calcium 9.3 mg/dL (8.4-10.2); Carbon Dioxide 29 mmol/L (22-29); Chloride 103 mmol/L (96-108); Creatinine Clr Calc Pharmacy 107.2; Estimated Glomerular Filt Rate > 60; Glucose Random 90 mg/dL (60-115); Sodium 139 mmol/L (135-145); Total Protein 7.8 g/dL (6.5-8.0)
[2021-04-02 14:38] VITALS: BP 101/72; PULSE 74; RESP 16; O2SAT 100
[2021-04-02] MEDS: Famotidine/PF 20 MG/2 ML VIAL IVPUSH (14:59)
[2021-04-02] MEDS: ondansetron HCL 4 MG/2 ML VIAL IVPUSH (14:59)
--- NOTE | 2021-04-02 15:06 | ED_ITS ---
HPI - Abdominal Pain General Chief Complaint: Abdominal Pain Stated Complaint: vomiting, abd pain Time Seen by Provider: 04/02/21 16:24 Source: patient Mode of arrival: ambulatory Limitations: no limitations History of Present Illness HPI narrative: Patient presents to the ED for epigastric pain, nausea, vomiting for the past 4 days. Patient states symptoms started after eating bagel border 4 days ago. Patient denies any lower abdominal pain, dysuria, hematuria, flank pain, fever, or chills. Patient denies any chest pain or shortness of breath. Patient describes pain as sharp and stabbing. Related Data Previous Rx's Medication Instructions Recorded vitamin with calcium 1 tab PO DAILY #30 tab 02/19/21 no.72-iron 27 mg-folic acid 1 mg tablet ( Vitamins Plus Low Iron) famotidine 20 mg tablet (Pepcid) 20 mg PO BID 20 Days #40 tab 04/02/21 Allergies Allergy/AdvReac Type Severity Reaction Status Date / Time aspirin [ASPIRIN] Allergy Intermediate PT HAS H/O Verified 04/02/21 12:40 LOW PALTELETS Review of Systems Review of Systems Yes all other systems are reviewed and are negative Constitutional: Reports as per HPI and Reports no additional constitutional complaints Eyes: Reports as per HPI and Reports no additional eye complaints Reports system reviewed and no additional complaints, except as documented and Reports as per HPI Cardiovascular: Reports as per HPI and Reports no additional cardiovascular complaints Respiratory: Reports as per HPI and Reports no additional respiratory complaints Gastrointestinal: Reports as per HPI, Reports no additional gastrointestinal complaints, Reports abdominal pain (epigastric pain), Reports nausea and Reports vomiting Genitourinary: Reports no additional female genitourinary complaints and Reports as per HPI Musculoskeletal: Reports no additional musculoskeletal complaints and Reports as per HPI Skin/Breast: Reports system reviewed and no additional complaints, except as docu and Reports as per HPI Reports system reviewed and no additional complaints, except as documented and Reports as per HPI Physical Exam Vital Signs: Vital Signs: Last Vital Signs Temp 98.0 F 04/02/21 17:20 Pulse 74 04/02/21 17:20 Resp 16 04/02/21 17:20 BP 109/57 L 04/02/21 17:20 Pulse Ox 99 04/02/21 17:20 Body Mass Index 32.3 Const: General: cooperative, healthy appearing, comfortable, no acute distress, well developed, alert, awake and Physically active Vincent ation/consciousness: patient oriented x3 HENMT: Head: Yes normal to inspection, Yes No palpable skull fracture present, Yes normocephalic, Yes atraumatic and No abrasion Eyes: General: appearance normal, both eyes and all related structures Neck: Neck: Yes normal visual inspection, Yes full ROM, Yes no lymphadenopathy, Yes no meningeal signs, Yes trachea midline, Yes supple, No anterior neck swelling and No tender Chest: Chest palpation & inspection: normal inspection of the chest and normal palpation of entire chest wall Resp: Effort & Inspection: normal respiratory effort and able to speak in complete sentences Cardio: Jugular venous distension: no JVD Heart sounds: S1 normal heart sound present and S2 normal heart sound present GI: Inspection: Yes normal to inspection and No abdominal wall ecchymosis Palpation (GI): Tenderness to palpation present (GI) in the epigastrum; Negative for not in the LLQ, not in the RLQ, not in the LUQ, not in the RUQ, not at McBurney's point, not periumbilically, not suprapubicly, Beltrán's sign negative, obturator sign negative, psoas sign negative, with no rebound tenderness and Rovsing's sign negative, no guarding and not rigid : General: No CVA tenderness and Yes no CVA tenderness Back/Spine/Pelvis: Back: no CVA tenderness, No CVA tenderness and No back tenderness Skin: General skin exam: no rashes or lesions noted and elasticity normal Neuro: General: patient oriented x3, gait normal, no meningeal signs and CN's II-XI intact bilaterally Cranial nerves: Yes CN's II-XII intact bilaterally Extrem: General: Yes normal to inspection and Yes full ROM Psych: Appearance: grossly normal, well kempt and not disheveled Course Course Course Narrative: Patient will have labs drawn also due to epigastric pain will have EKG and troponin although very unlikely at this age having a heart attack. Most likely will do ultrasound to rule out any gallstones. Will give GI cocktail. Reevaluation(s) Reevaluation #1: EKG negative STEMI. Troponin negative after symptoms for 4 days. Ultrasound negative for cholecystitis. Liver enzymes and lipase normal not suspecting pancreatitis. Not suspecting any appendicitis. patient does not have any lower abdominal pain and has normal white blood cell count. Urine negative for infection. is negative. Diagnosis GERD. Patient is safe for discharge. Time: 18:35 MDM - Abdominal Pain MDM Narrative Medical decision making narrative: GERD Lab Data Result diagrams: 04/02/21 14:03 04/02/21 14:03 Labs: Lab Results 04/02/21 04/02/21 04/02/21 Range/Units 14:03 14:03 14:03 WBC 4.0 L (4.8-10.8) X10*3/uL RBC 5.12 (4.20-5.50) X10*6/uL Hgb 13.6 (12.0-16.0) g/dl Hct 41.0 (37-47) % MCV 80.1 (80-98) fL MCH 26.6 L (27.0-33.0) pg MCHC 33.2 (31.0-35.0) g/dl RDW 13.2 (11.0-16.0) % Plt Count 212 D (160-400) X10*3/uL MPV 13.7 H (9.4-12.3) fL Immature Gran % (Auto) 0.2 (0.0-0.4) % Neut % (Auto) 57.0 (45-73) % Lymph % (Auto) 31.4 (20-40) % [place] % (Auto) 9.7 (2-11) % Eos % (Auto) 1.2 (0-4) % Baso % (Auto) 0.5 (0-2) % Lymph # (Auto) 1.3 (1.2-4.9) X10*3/uL [place] # (Auto) 0.4 (0.1-1.2) X10*3/uL Eos # (Auto) 0.1 (0.0-0.4) X10*3/uL Baso # (Auto) 0.0 (0.0-0.2) X10*3/uL Abs Immat Gran (auto) 0.01 (0.00-0.03) X10*3/uL Absolute Neuts (auto) 2.3 (2.0-8.3) X10*3/uL Absolute Nucleated RBC 0.000 (0.0-0.012) X10*3/uL Nucleated RBC % (auto) 0.0 (0.0-0.2) /100WBC Sodium 139 (135-145) mmol/L Potassium 4.0 (3.3-5.1) mmol/L Chloride 103 (96-108) mmol/L Carbon Dioxide 29 (22-29) mmol/L Anion Gap 11 L (12-20) BUN 9 (9-16) mg/dL Creatinine 0.71 (0.5-1.4) mg/dL Estim Creat Clear Calc 107.2 Estimated GFR > 60 Random Glucose 90 (60-115) mg/dL Calcium 9.3 (8.4-10.2) mg/dL Total Bilirubin 0.7 (0.0-1.0) mg/dL AST 17 (5-31) U/L ALT 21 (0-31) U/L Alkaline Phosphatase 93 (39-117) U/L Troponin I High Sens (<3.5-17.0) ng/L Total Protein 7.8 (6.5-8.0) g/dL Albumin 4.5 (3.5-5.0) g/dL Lipase 16 (8-78) U/L Urine Color YELLOW Urine Appearance CLEAR Urine pH 6.0 (5.0-8.0) Ur Specific [place] 1.015 (1.005-1.025) Urine Protein NEG (NEG-TRACE) MG/DL Urine Glucose (UA) NEG (NEG) MG/DL Urine Ketones NEG (NEG) MG/DL Urine Blood TRACE (NEG) Urine Nitrite NEG (NEG) Ur Leukocyte Esterase NEG (NEG) Urine RBC 5-9 H (0) /HPF Urine WBC 0-2 (0-4) /HPF Ur Squamous Epith Cells 1+ /LPF Urine Bacteria NONE /LPF Urine Test (NEGATIVE) COVID-19 (LETTY) (Negative) COVID-19 Clin Com 04/02/21 04/02/21 04/02/21 Range/Units 14:03 17:19 17:19 WBC (4.8-10.8) X10*3/uL RBC (4.20-5.50) X10*6/uL Hgb (12.0-16.0) g/dl Hct (37-47) % MCV (80-98) fL MCH (27.0-33.0) pg MCHC (31.0-35.0) g/dl RDW (11.0-16.0) % Plt Count (160-400) X10*3/uL MPV (9.4-12.3) fL Immature Gran % (Auto) (0.0-0.4) % Neut % (Auto) (45-73) % Lymph % (Auto) (20-40) % [place] % (Auto) (2-11) % Eos % (Auto) (0-4) % Baso % (Auto) (0-2) % Lymph # (Auto) (1.2-4.9) X10*3/uL [place] # (Auto) (0.1-1.2) X10*3/uL Eos # (Auto) (0.0-0.4) X10*3/uL Baso # (Auto) (0.0-0.2) X10*3/uL Abs Immat Gran (auto) (0.00-0.03) X10*3/uL Absolute Neuts (auto) (2.0-8.3) X10*3/uL Absolute Nucleated RBC (0.0-0.012) X10*3/uL Nucleated RBC % (auto) (0.0-0.2) /100WBC Sodium (135-145) mmol/L Potassium (3.3-5.1) mmol/L Chloride (96-108) mmol/L Carbon Dioxide (22-29) mmol/L Anion Gap (12-20) BUN (9-16) mg/dL Creatinine (0.5-1.4) mg/dL Estim Creat Clear Calc Estimated GFR Random Glucose (60-115) mg/dL Calcium (8.4-10.2) mg/dL Total Bilirubin (0.0-1.0) mg/dL AST (5-31) U/L ALT (0-31) U/L Alkaline Phosphatase (39-117) U/L Troponin I High Sens < 3.5 (<3.5-17.0) ng/L Total Protein (6.5-8.0) g/dL Albumin (3.5-5.0) g/dL Lipase (8-78) U/L Urine Color Urine Appearance Urine pH (5.0-8.0) Ur Specific [place] (1.005-1.025) Urine Protein (NEG-TRACE) MG/DL Urine Glucose (UA) (NEG) MG/DL Urine Ketones (NEG) MG/DL Urine Blood (NEG) Urine Nitrite (NEG) Ur Leukocyte Esterase (NEG) Urine RBC (0) /HPF Urine WBC (0-4) /HPF Ur Squamous Epith Cells /LPF Urine Bacteria /LPF Urine Test NEGATIVE (NEGATIVE) COVID-19 (LETTY) Negative (Negative) COVID-19 Clin Com See Note ECG Data Interpretation: Again normal sinus rhythm. Ventricular rate 99. Pr interval 136. QRS 82. QTC 456. Negative STEMI. Discharge Plan Discharge Clinical Impression: Gastroesophageal reflux disease Patient Disposition: Home, Self-Care Instructions: Gastroesophageal Reflux Disease (ED) Additional Instructions: Your EKG and blood work came back negative for heart attack. Ultrasound of abdomen came back negative for cholecystitis. The liver and pancreas enzymes came back normal. Electrolytes came back normal. Urine negative for infection. You are not . You are not anemic. Your covid swab came back negative. Your safe for discharge. Please follow-up with your primary care provider. Return to the ED immediately for worsening abdominal pain, nausea, vomiting, fever, chills, flank pain, lower abdominal pain, vaginal bleeding, vaginal discharge, dysuria, chest pain, shortness of breath, or any other concerning symptoms. Please follow up with your PCP Prescriptions: New famotidine [Pepcid] 20 mg tablet 20 mg PO BID 20 Days Qty: 40 RF: 0 No Action Vitamin Plus Low Iron 27 mg iron- 1 mg tablet 1 tab PO DAILY Qty: 30 RF: 11 Stand Alone Forms: Work/School Release Interventions: ED Discharge Assessment Last Done: 04/02/21 18:48 Discharge Date/Time: 04/02/21 18:48 Print Language: Tong[place] [facility] Past Medical History Medical History (Updated 04/02/21 @ 18:38 by BILLIE Sánchez) Chronic ITP (idiopathic thrombocytopenia) Migraine Miscarriage Family History Family History Father Migraine Mother Migraine Social History Social History Household Members: Children Housing: Apartment Alcohol intake: never Patient Tobacco Use Status: Former Tobacco user Advance Directives: No Patient : No Sexual orientation: Straight/Heterosexual Gender identity: Female
[2021-04-02 15:45] LABS: Lipase 16 U/L (8-78)
[2021-04-02 16:00] VITALS: BP 93/61; PULSE 74; RESP 16; TEMP 36.7; O2SAT 99
--- NOTE | 2021-04-02 16:55 | ECG_ITS ---
Test Reason : ABD PAIN Blood Pressure : / mmHG Vent. Rate : 074 BPM Atrial Rate : 074 BPM P-R Int : 148 ms QRS Dur : 086 ms QT Int : 394 ms P-R-T Axes : 029 016 024 degrees QTc Int : 437 ms Normal sinus rhythm Normal ECG No previous ECGs available Referred By: Deandre Rashid Electronically Signed By:NIMISHA MEDINA MD
[2021-04-02 17:20] VITALS: BP 109/57; PULSE 74; RESP 16; TEMP 36.7; O2SAT 99
[2021-04-02 17:48] LABS: Troponin-I High Sensitivity < 3.5 ng/L (<3.5-17.0)
[2021-04-02 18:07] LABS: COVID-19 Test Negative (Negative); IDNOW Serial# 08D9AD1C
== END 2021-04-02 18:48 | disposition home or self-care (01) ==
PROVIDERS: Physician Assistant; Emergency Provider Emergency Medicine Emergency Medical Services; PCP Internal Medicine Medical Oncology
DX: K21.9 Gastro-esophageal reflux disease without esophagitis (principal); R11.2 Nausea with vomiting, unspecified; R10.9 Unspecified abdominal pain; Z20.822 Contact with and (suspected) exposure to COVID-19
CPT/HCPCS: 36415; 76705; 80053; 81001; 81025; 83690; 84484; 85025; 87635; 93005; 96374; 96375; 99284; J2405

== ENCOUNTER 2021-04-21 13:17 | Outpatient (REF) | payer OTHER, SELFPAY ==
[2021-04-21 13:36] LABS: MANUAL DIFF FLAG NO
[2021-04-21 13:58] LABS: Basophils Percent Auto 0.6 % (0-2); Eosinophils Absolute Auto 0.1 X10*3/uL (0.0-0.4); Eosinophils Percent Auto 2.8 % (0-4); Hematocrit 37.1 % (37.0-47.0); Hemoglobin 12.4 g/dl (12.0-16.0); Imm Gran Abs Auto 0.01 X10*3/uL (0.00-0.03); Imm Gran Pct Auto 0.2 % (0.0-0.4); Lymphocytes Absolute Auto 1.5 X10*3/uL (1.2-4.9); Lymphocytes Percent Auto 29.6 % (20-40); Mean Corpuscular HGB Conc 33.4 g/dl (31.0-35.0); Mean Corpuscular Hemoglobin 26.2 pg (27.0-33.0); Mean Corpuscular Volume 78.3 fL (80.0-98.0); Monocytes Absolute Auto 0.6 X10*3/uL (0.1-1.2); Monocytes Percent Auto 11.1 % (2-11); Neutrophils Absolute Auto 2.8 x10*3/uL (2.0-8.3); Neutrophils Percent Auto 55.7 % (45-73); Red Blood Count 4.74 X10*6/uL (4.20-5.50); Red Cell Distribution Width 13.4 % (11.0-16.0); White Blood Count 4.9 X10*3/uL (4.8-10.8)
[2021-04-21 14:28] LABS: Platelet Count (Citrate) 15 X10*3/uL (150-310)
[2021-04-21 14:29] LABS: Platelet Count 18 X10*3/uL (160-400)
== END 2021-04-21 13:18 | disposition home or self-care (01) ==
LOC: HO.LAB 13:17
PROVIDERS: PCP Internal Medicine Medical Oncology; Visit Provider Internal Medicine Medical Oncology
DX: D69.3 Immune thrombocytopenic purpura (principal)
CPT/HCPCS: 36415; 85025

== ENCOUNTER 2021-04-23 12:15 | Outpatient (REF) | payer OTHER, SELFPAY | END 2021-04-23 12:16 | disposition home or self-care (01) | LOC: HO.LAB 12:15 | PROVIDERS: PCP Internal Medicine Medical Oncology; Visit Provider Internal Medicine | DX: Z20.822 Contact with and (suspected) exposure to COVID-19 (principal) | CPT/HCPCS: C9803; U0003; U0005 ==

== ENCOUNTER 2021-04-24 00:07 | Emergency (ER) | payer OTHER, SELFPAY ==
[2021-04-24 00:43] VITALS: BP 108/68; PULSE 89; RESP 16; TEMP 36.3; O2SAT 98; BMI 32.5
--- NOTE | 2021-04-24 03:50 | ED.PREGNANCY ---
HPI - General Chief complaint: Vaginal Bleeding Stated complaint: Vaginal Bleeding/ Time Seen by Provider: 04/24/21 03:50 Source: patient Mode of arrival: ambulatory Limitations: no limitations History of Present Illness HPI Narrative: Patient had no period in March, 2 days ago patient tested positive for , patient having spotting when she wipes. Complaint: vaginal bleeding Onset (ago): hour(s) Severity: mild Associated symptoms: denies other symptoms Related Data Previous Rx's Medication Instructions Recorded vitamin with calcium 1 tab PO DAILY #30 tab 02/19/21 no.72-iron 27 mg-folic acid 1 mg tablet ( Vitamins Plus Low Iron) famotidine 20 mg tablet (Pepcid) 20 mg PO BID 20 Days #40 tab 04/02/21 Allergies Allergy/AdvReac Type Severity Reaction Status Date / Time aspirin [ASPIRIN] Allergy Intermediate PT HAS H/O Verified 04/02/21 12:40 LOW PALTELETS Review of Systems Constitutional: Constitutional: Reports no additional constitutional complaints Eyes: Eyes: Reports no additional eye complaints ENT: Denies dizziness Cardiovascular: Cardiovascular: Reports no additional cardiovascular complaints Respiratory: Respiratory: Reports as per HPI Gastrointestinal: Gastrointestinal: Reports no additional gastrointestinal complaints Genitourinary: Genitourinary: Reports no additional female genitourinary complaints Musculoskeletal: Musculoskeletal: Reports no additional musculoskeletal complaints Integumentary/Breasts: Skin/Breast: Denies rash Neurologic: Reports system reviewed and no additional complaints, except as documented, Denies dizziness and Denies Sensory deficit (Neuro) Psychiatric: Psychiatric: Denies anxiety [facility] Past Medical History Medical History Chronic ITP (idiopathic thrombocytopenia) Migraine Miscarriage Family History Family History Father Migraine Mother Migraine Social History Social History Household Members: Children Housing: Apartment Alcohol intake: never Patient Tobacco Use Status: Former Tobacco user Advance Directives: No Patient : Yes Sexual orientation: Straight/Heterosexual Gender identity: Female Physical Exam Vital Signs: Vital Signs: Last Vital Signs Temp 98.7 F 04/24/21 03:58 Pulse 84 04/24/21 03:58 Resp 15 04/24/21 03:58 BP 109/59 L 04/24/21 03:58 Pulse Ox 98 04/24/21 03:58 Body Mass Index 32.5 Const: General: healthy appearing Nutritional Appearance: average body habitus Orientation/consciousness: oriented to person and patient oriented x3 Limitations: no limitations HENMT: Head: Yes normal to inspection Ears: external ears normal General nose exam: Normal external nose present Mouth: Normal oral and palatal mucosa present and oropharynx normal Throat: Yes posterior oropharynx normal Eyes: General: appearance normal, both eyes and all related structures Neck: Other: supple Neck: Yes normal visual inspection Chest: Chest palpation & inspection: normal inspection of the chest Resp: Auscultation: clear to auscultation bilaterally Cardio: Jugular venous distension: no JVD Rate: regular rate Rhythm: regular rhythm Heart sounds: S1 normal heart sound present and S2 normal heart sound present GI: Inspection: Yes normal to inspection Palpation (GI): Soft to palpation, nontender and No hepatosplenomegaly present Auscultation: normal bowel sounds : General: Yes no CVA tenderness Back/Spine/Pelvis: Back: no CVA tenderness Skin: General skin exam: no rashes or lesions noted Neuro: General: oriented to person and patient oriented x3 Cranial nerves: Yes CN's II-XII intact bilaterally Motor exam (neuro): 5/5 motor strength present throughout Sensory Exam: No Sensory deficit (Neuro) Extrem: General: Yes normal to inspection Psych: Appearance: grossly normal Course Reevaluation(s) Reevaluation #1: levels too low to get ultrasound will dc with threatened instructions Time: 05:03 MDM - OB/Uterine Contractions Lab Data Result diagrams: 04/24/21 04:05 04/24/21 04:05 Labs: Lab Results 04/24/21 04/24/21 04/24/21 Range/Units 04:05 04:05 04:08 WBC 8.0 (4.8-10.8) X10*3/uL RBC 4.44 (4.20-5.50) X10*6/uL Hgb 11.7 L (12.0-16.0) g/dl Hct 35.1 L (37.0-47.0) % MCV 79.1 L (80.0-98.0) fL MCH 26.4 L (27.0-33.0) pg MCHC 33.3 (31.0-35.0) g/dl RDW 13.3 (11.0-16.0) % Plt Count 25 L D (160-400) X10*3/uL MPV Not Reportable Immature Gran % (Auto) 0.3 (0.0-0.4) % Neut % (Auto) 67.6 (45-73) % Lymph % (Auto) 22.9 (20-40) % [place] % (Auto) 7.5 (2-11) % Eos % (Auto) 1.4 (0-4) % Baso % (Auto) 0.3 (0-2) % Lymph # (Auto) 1.8 (1.2-4.9) X10*3/uL [place] # (Auto) 0.6 (0.1-1.2) X10*3/uL Eos # (Auto) 0.1 (0.0-0.4) X10*3/uL Baso # (Auto) 0.0 (0.0-0.2) X10*3/uL Abs Immat Gran (auto) 0.02 (0.00-0.03) X10*3/uL Absolute Neuts (auto) 5.4 (2.0-8.3) x10*3/uL Absolute Nucleated RBC 0.000 (0.0-0.012) X10*3/uL Nucleated RBC % (auto) 0.0 (0.0-0.2) /100WBC Smear Tech's Comments VERIFIED Sodium 137 (135-145) mmol/L Potassium 3.7 (3.3-5.1) mmol/L Chloride 108 (96-108) mmol/L Carbon Dioxide 21 L (22-29) mmol/L Anion Gap 12 (12-20) BUN 13 (9-16) mg/dL Creatinine 0.66 (0.5-1.4) mg/dL Estim Creat Clear Calc 115.9 Estimated GFR > 60 Random Glucose 102 (60-115) mg/dL Calcium 8.6 D (8.4-10.2) mg/dL Beta HCG, Quant 370 mIU/mL Urine Color YELLOW Urine Appearance CLEAR Urine pH 6.0 (5.0-8.0) Ur Specific [place] 1.025 (1.005-1.025) Urine Protein NEG (NEG-TRACE) MG/DL Urine Glucose (UA) NEG (NEG) MG/DL Urine Ketones NEG (NEG) MG/DL Urine Blood 3+ H (NEG) Urine Nitrite NEG (NEG) Ur Leukocyte Esterase 1+ H (NEG) Urine RBC 15-29 H (0) /HPF Urine WBC 5-9 H (0-4) /HPF Ur Squamous Epith Cells 2+ /LPF Urine Bacteria 2+ /LPF Urine Mucus 2+ /LPF Discharge Plan Discharge Clinical Impression: Threatened Patient Disposition: Home, Self-Care Instructions: Threatened Miscarriage (ED) Prescriptions: No Action famotidine [Pepcid] 20 mg tablet 20 mg PO BID 20 Days Qty: 40 RF: 0 Vitamin Plus Low Iron 27 mg iron- 1 mg tablet 1 tab PO DAILY Qty: 30 RF: 11 Referrals: Rudolph Van MD [Physician] - 3 days
[2021-04-24 03:58] VITALS: BP 109/59; PULSE 84; RESP 15; TEMP 37.1; O2SAT 98
[2021-04-24 04:00] VITALS: BP 101/57; PULSE 84; RESP 16; O2SAT 99
[2021-04-24 04:18] LABS: Basophils Percent Auto 0.3 % (0-2); Eosinophils Absolute Auto 0.1 X10*3/uL (0.0-0.4); Eosinophils Percent Auto 1.4 % (0-4); Hemoglobin 11.7 g/dl (12.0-16.0); Imm Gran Abs Auto 0.02 X10*3/uL (0.00-0.03); Imm Gran Pct Auto 0.3 % (0.0-0.4); MANUAL DIFF FLAG SCAN; Red Cell Distribution Width 13.3 % (11.0-16.0); SCAN SMEAR FLAG 1
[2021-04-24 04:19] LABS: Appearance Urine CLEAR; Color Urine YELLOW; Glucose Urine UA NEG (NEG); Leukocyte Esterase Urine 1+ (NEG); Nitrite Urine NEG (NEG); Specific Gravity - Urine 1.025 (1.005-1.025); UACC Culture Trigger YES; Urine Blood 3+ (NEG); Urine Ketones NEG (NEG); Urine Protein NEG (NEG-TRACE)
[2021-04-24 04:19] LABS: Hematocrit 35.1 % (37.0-47.0); Lymphocytes Absolute Auto 1.8 X10*3/uL (1.2-4.9); Lymphocytes Percent Auto 22.9 % (20-40); Mean Corpuscular HGB Conc 33.3 g/dl (31.0-35.0); Mean Corpuscular Hemoglobin 26.4 pg (27.0-33.0); Mean Corpuscular Volume 79.1 fL (80.0-98.0); Monocytes Absolute Auto 0.6 X10*3/uL (0.1-1.2); Monocytes Percent Auto 7.5 % (2-11); Neutrophils Absolute Auto 5.4 x10*3/uL (2.0-8.3); Neutrophils Percent Auto 67.6 % (45-73); Red Blood Count 4.44 X10*6/uL (4.20-5.50)
[2021-04-24 04:21] LABS: Platelet Count 25 X10*3/uL (160-400)
[2021-04-24 04:22] LABS: PLT ABN DIST 1
[2021-04-24 04:24] LABS: SLIDE REVIEW VERIFIED
[2021-04-24 04:32] LABS: Bacteria Urine 2+ /LPF; Mucus Urine 2+ /LPF; Squamous Epithelial Cell Urine 2+ /LPF
[2021-04-24 04:43] LABS: Anion Gap 12 (12-20); Blood Urea Nitrogen 13 mg/dL (9-16); Calcium 8.6 mg/dL (8.4-10.2); Carbon Dioxide 21 mmol/L (22-29); Chloride 108 mmol/L (96-108); Creatinine Clr Calc Pharmacy 115.9; Estimated Glomerular Filt Rate > 60; Glucose Random 102 mg/dL (60-115); Potassium 3.7 mmol/L (3.3-5.1); Sodium 137 mmol/L (135-145)
[2021-04-24 04:51] LABS: HCG Quantitative 370 mIU/mL
== END 2021-04-24 05:17 | disposition home or self-care (01) ==
PROVIDERS: Emergency Provider Emergency Medicine; PCP Internal Medicine Medical Oncology
DX: O20.0 Threatened abortion (principal); Z3A.01 Less than 8 weeks gestation of pregnancy
CPT/HCPCS: 36415; 80048; 81001; 84702; 85025; 87086; 99283; 99284

== ENCOUNTER 2021-04-26 13:48 | Outpatient (REF) | payer OTHER, SELFPAY ==
[2021-04-26 14:38] LABS: HCG Quantitative 797 mIU/mL
== END 2021-04-26 13:49 | disposition home or self-care (01) ==
LOC: HO.LAB 13:48
PROVIDERS: Visit Provider Obstetrics & Gynecology
DX: O20.0 Threatened abortion (principal)
CPT/HCPCS: 36415; 84702

== ENCOUNTER 2021-04-28 09:37 | Outpatient (REF) | payer OTHER, SELFPAY ==
[2021-04-28 10:52] LABS: HCG Quantitative 1661 mIU/mL
== END 2021-04-28 09:38 | disposition home or self-care (01) ==
LOC: HO.LAB 09:37
PROVIDERS: PCP Internal Medicine Medical Oncology; Visit Provider Obstetrics & Gynecology
DX: O20.0 Threatened abortion (principal)
CPT/HCPCS: 36415; 84702; 99212

== ENCOUNTER 2021-05-01 14:51 | Outpatient (REF) | payer OTHER, SELFPAY ==
--- NOTE | ~2021-05-01 | US_ITS ---
EXAMINATION: US OBSTETRICAL ULTRASOUND CLINICAL INFORMATION: Encounter for supervision abnormal . Bleeding. Check viability. COMPARISON: None. LMP: Unknown. Gestational age by maternal dates is . Estimated date of delivery by maternal dates is . TECHNIQUE: Transabdominal and transvaginal first trimester OB ultrasound FINDINGS: The uterus is normal in size and shape. There is an intrauterine gestational sac and question yolk sac. Mean sac diameter measures 0.8 cm suggesting gestational age of 5 weeks 3 days. No pole is seen. No fluid collection adjacent to the gestational sac is seen. No focal uterine lesion is seen. There are nabothian cysts in the cervix. The ovaries are normal-appearing. The right ovary measures 2.6 x 1.8 x 2.5 cm. The left ovary measures 3.8 x 2.7 x 2.8 cm. There is a small amount of fluid in the pelvis adjacent to the right ovary. US/US OB <= 14 weeks fetus IMPRESSION: Intrauterine gestational sac and question yolk sac. No pole seen. Mean sac diameter suggests gestational age of 5 weeks 3 days. Follow-up exam recommended.
== END 2021-05-01 14:52 | disposition home or self-care (01) ==
LOC: HO.US 14:51
PROVIDERS: PCP Internal Medicine Medical Oncology; Visit Provider Obstetrics & Gynecology
DX: O20.9 Hemorrhage in early pregnancy, unspecified (principal); Z3A.01 Less than 8 weeks gestation of pregnancy
CPT/HCPCS: 76801

== ENCOUNTER 2021-05-04 14:27 | Outpatient (REF) | payer OTHER, SELFPAY ==
[2021-05-04 15:36] LABS: HCG Quantitative 10912 mIU/mL
== END 2021-05-04 14:28 | disposition home or self-care (01) ==
LOC: HO.LAB 14:27
PROVIDERS: Obstetrics & Gynecology; PCP Internal Medicine Medical Oncology; Visit Provider Internal Medicine Medical Oncology
DX: O26.891 Other specified pregnancy related conditions, first trimester (principal); D69.3 Immune thrombocytopenic purpura
CPT/HCPCS: 36415; 84702; 99212

== ENCOUNTER 2021-05-15 13:34 | Outpatient (REF) | payer OTHER, SELFPAY ==
--- NOTE | ~2021-05-15 | US_ITS ---
EXAMINATION: OBSTETRICAL ULTRASOUND, FIRST TRIMESTER HISTORY: A 30-year-old at 7.3 weeks of gestation Viability LMP: Unknown COMPARISON: 05/01/2021 TECHNIQUE: Real time transabdominal imaging with color and M-mode Doppler. FINDINGS: A single, live IUP CRL of 13.4 mm c/w 7.5wks is noted. Heart Rate: 156 beats per minute. Both maternal ovaries are seen and appear normal. GESTATIONAL AGE: 1. GA from LMP: N/A wks 2. GA from AUA: 7.5 wks ESTIMATED DATE OF DELIVERY: 1. MIRANDA from LMP: N/A 2. MIRANDA from AUA: 12/27/2021 US/US OB <= 14 weeks fetus IMPRESSION: 1. A single live IUP 2. CRL consistent with 7.5 weeks. Adjust her MIRANDA to 12/27/2021 based on today's examination since it is based on the CRL. The prior ultrasound dating is based on the gestational sac only. Thank you very much for this referral. This note was generated with a voice recognition program. Please excuse any errors which may have been overlooked during my review of this note. Sometimes these errors may affect the content or meaning of a given sentence.
== END 2021-05-15 13:35 | disposition home or self-care (01) ==
LOC: HO.US 13:34
PROVIDERS: PCP Internal Medicine Medical Oncology; Visit Provider Obstetrics & Gynecology
DX: Z34.90 Encounter for supervision of normal pregnancy, unspecified, unspecified trimester (principal)
CPT/HCPCS: 76801

== ENCOUNTER → 2021-05-28 10:56 | Outpatient (BNVA) | payer OTHER, SELFPAY | PROVIDERS: PCP Internal Medicine Medical Oncology; Visit Provider Obstetrics & Gynecology | DX: Z34.91 Encounter for supervision of normal pregnancy, unspecified, first trimester (principal); Z3A.09 9 weeks gestation of pregnancy | CPT/HCPCS: 99212 ==

== ENCOUNTER 2021-06-02 13:14 | Outpatient (REF) | payer OTHER, SELFPAY ==
[2021-06-02 15:28] LABS: Amphetamine Screen Urine Not Detected (Not Detect); Barbiturates, Urine Not Detected (Not Detect); Benzodiazepines Screen Urine Not Detected (Not Detect); Cannabinoid Screen Urine Not Detected (Not Detect); Cocaine Screen Urine Not Detected (Not Detect); Fentanyl, urine Not Detected (Not Detect); Opiate Screen Urine Not Detected (Not Detect); Phencyclidine Screen Urine Not Detected (Not Detect)
[2021-06-02 16:00] LABS: Basophils Percent Auto 0.2 % (0-2); Hematocrit 37.9 % (37.0-47.0); Monocytes Percent Auto 3.3 % (2-11); Neutrophils Percent Auto 87.1 % (45-73); Red Cell Distribution Width 13.3 % (11.0-16.0); SCAN SMEAR FLAG 1
[2021-06-02 16:02] LABS: Eosinophils Percent Auto 0.2 % (0-4); Hemoglobin 12.6 g/dl (12.0-16.0); Imm Gran Abs Auto 0.07 X10*3/uL (0.00-0.03); Imm Gran Pct Auto 0.8 % (0.0-0.4); Lymphocytes Absolute Auto 0.8 X10*3/uL (1.2-4.9); Lymphocytes Percent Auto 8.4 % (20-40); MANUAL DIFF FLAG SCAN; Mean Corpuscular HGB Conc 33.2 g/dl (31.0-35.0); Mean Corpuscular Hemoglobin 26.2 pg (27.0-33.0); Mean Corpuscular Volume 78.8 fL (80.0-98.0); Monocytes Absolute Auto 0.3 X10*3/uL (0.1-1.2); Red Blood Count 4.81 X10*6/uL (4.20-5.50); White Blood Count 9.2 X10*3/uL (4.8-10.8)
[2021-06-02 16:06] LABS: PLT ABN DIST 1
[2021-06-02 16:21] LABS: Glucose 1 Hour PP 50gm Dose 71 mg/dL (60-140)
[2021-06-02 16:26] LABS: Platelet Count 34 X10*3/uL (160-400); SLIDE REVIEW VERIFIED
[2021-06-03 08:59] LABS: Syphilis Screen Nonreactive (Nonreactive)
[2021-06-03 09:35] LABS: HIV AB/AG Nonreactive (Nonreactive); HIV Num 1 0.06 S/CO (0.00-0.99)
[2021-06-03 09:37] LABS: ~Hepatitis C Antibody Nonreactive (Nonreactive)
[2021-06-03 09:39] LABS: Hepatitis B Surface Antigen Negative (Negative)
[2021-06-03 10:08] LABS: ~HepC Num1 0.08 S/CO (0.00-0.79)
[2021-06-04 05:11] LABS: Rubella IgG Antibody <0.90 Index
== END 2021-06-02 13:15 | disposition home or self-care (01) ==
LOC: HO.LAB 13:14
PROVIDERS: Absent Provider Internal Medicine Medical Oncology; PCP Internal Medicine Medical Oncology; Visit Provider Obstetrics & Gynecology
DX: Z34.91 Encounter for supervision of normal pregnancy, unspecified, first trimester (principal); Z3A.10 10 weeks gestation of pregnancy
CPT/HCPCS: 80307; 85025; 85027; 86762; 86780; 86787; 86803; 86850; 86900; 86901; 87086; 87340; 87389; 99211; 99212

== ENCOUNTER 2021-06-15 15:19 | Outpatient (REF) | payer OTHER, SELFPAY ==
[2021-06-15 16:20] LABS: Eosinophils Absolute Auto 0.1 X10*3/uL (0.0-0.4); Eosinophils Percent Auto 0.6 % (0-4); Hemoglobin 11.9 g/dl (12.0-16.0); Imm Gran Abs Auto 0.08 X10*3/uL (0.00-0.03); Imm Gran Pct Auto 0.8 % (0.0-0.4); Mean Corpuscular Volume 81.1 fL (80.0-98.0); SCAN SMEAR FLAG 1
[2021-06-15 16:23] LABS: Basophils Percent Auto 0.3 % (0-2); Hematocrit 35.7 % (37.0-47.0); Lymphocytes Absolute Auto 2.1 X10*3/uL (1.2-4.9); Lymphocytes Percent Auto 22.6 % (20-40); Mean Corpuscular HGB Conc 33.3 g/dl (31.0-35.0); Monocytes Absolute Auto 0.8 X10*3/uL (0.1-1.2); Monocytes Percent Auto 8.4 % (2-11); Neutrophils Absolute Auto 6.4 x10*3/uL (2.0-8.3); Neutrophils Percent Auto 67.3 % (45-73); Red Cell Distribution Width 13.6 % (11.0-16.0); White Blood Count 9.5 X10*3/uL (4.8-10.8)
[2021-06-15 16:24] LABS: PLT ABN DIST 1; Platelet Count 27 X10*3/uL (160-400)
[2021-06-15 16:25] LABS: MANUAL DIFF FLAG NO
== END 2021-06-15 15:20 | disposition home or self-care (01) ==
LOC: HO.LABR 15:19
PROVIDERS: PCP Internal Medicine Medical Oncology; Visit Provider Internal Medicine Medical Oncology
DX: D69.3 Immune thrombocytopenic purpura (principal)
CPT/HCPCS: 36415; 85025

== ENCOUNTER 2021-06-19 13:18 | Outpatient (REF) | payer OTHER, SELFPAY ==
--- NOTE | ~2021-06-19 | US_ITS ---
EXAMINATION: OBSTETRICAL ULTRASOUND, FIRST TRIMESTER HISTORY: 30-year-old at 12.5 weeks of gestation Immune thrombocytopenia (ITP) NT screening COMPARISON: 05/15/2021 TECHNIQUE: Real time transabdominal imaging with color and M-mode Doppler. FINDINGS: A single, live IUP CRL of 69.7 mm c/w 13.2wks is noted. Heart Rate: 174 beats per minute. Normal yolk sac seen. NT was 1.3.mm. NB Present The embryo appears sonographically wnl for this GA. Both maternal ovaries are seen and appear normal. GESTATIONAL AGE: 1. Established GA: 12.5 wks 2. GA from AUA: 13.2 wks ESTIMATED DATE OF DELIVERY: 1. Established MIRANDA: 12/27/2021 2. MIRANDA from AUA: 12/23/2021 US/US OB 1T nuc measure IMPRESSION: 1. A single live IUP 2. Size equals dates 3. NT of 1.3 mm MFM Consultation: I reviewed the ultrasound findings along with significance of NT measurement. The NT of less than 3mm is generally reassuring. However, the sensitivity for T21 detection is only 60%. I reviewed the availability of serum aneuploidy screening which includes cell-free DNA and placental protein based tests. I discussed the sensitivity, false-positive rate, and other limitations associated with each test. I also reviewed the availability of invasive diagnostic tests that are associated small but definite risk of miscarriage. We also reviewed the differences between screening tests and diagnostic tests. After our discussion, she opted for the First trimester screening that is based on cell-free DNA or non-invasive testing (NIPT). She was diagnosed with immune thrombocytopenia at the age 17. She delivered vaginally without complication approximately 2 years ago while receiving prednisone for ITP. In between pregnancies, she is treated with an Nplate, thrombopoietin receptor agonist. Due to a lack of the safety data in , she has been switched to prednisone since becoming . Her most recent platelet count was 27,000 and which is about her baseline. Her delivery is currently planned at the [facility]. A follow up at 18 weeks for survey has been scheduled. Thank you very much for this referral. Total time 30 minutes. The time spent was devoted to counseling the patient about the disease and diagnosis, coordinating care including reviewing her records, pertinent lab data and studies, as well as discussing diagnostic evaluation and workup, plan therapeutic interventions and future disposition of care. This includes any additional research needed to obtain further information in formulating the plan of care of this patient. This note was generated with a voice recognition program. Please excuse any errors which may have been overlooked during my review of this note. Sometimes these errors may affect the content or meaning of a given sentence.
== END 2021-06-19 13:19 | disposition home or self-care (01) ==
LOC: HO.US 13:18
PROVIDERS: PCP Internal Medicine Medical Oncology; Visit Provider Advanced Practice Midwife
DX: O26.851 Spotting complicating pregnancy, first trimester (principal)
CPT/HCPCS: 76813

== ENCOUNTER 2021-06-19 14:46 | Outpatient (REF) | payer OTHER, SELFPAY ==
[2021-06-19 14:50] LABS: Courtesy Draw Natera Courtesy Draw
== END 2021-06-19 14:47 | disposition home or self-care (01) ==
LOC: HO.LNP 14:46
DX: Z13.89 Encounter for screening for other disorder (principal)

== ENCOUNTER 2021-06-29 13:45 | Outpatient (REF) | payer OTHER, SELFPAY ==
[2021-06-30 02:01] LABS: CT PCR NOT DETECTED (Not Detect.); NG PCR NOT DETECTED (Not Detect.)
[2021-06-30 09:18] LABS: BV Int Neg Control Negative (Negative); BV Int Pos Control Positive (Positive)
[2021-07-02 05:51] LABS: HPV mRNA E6/E7 rflx Not Detected (Not Detected)
== END 2021-06-29 13:46 | disposition home or self-care (01) ==
LOC: HO.LAB 13:45
PROVIDERS: PCP Internal Medicine Medical Oncology; Visit Provider Advanced Practice Midwife
DX: Z36.3 Encounter for antenatal screening for malformations (principal); O34.41 Maternal care for other abnormalities of cervix, first trimester; O26.851 Spotting complicating pregnancy, first trimester; O26.891 Other specified pregnancy related conditions, first trimester; D69.3 Immune thrombocytopenic purpura; O09.291 Supervision of pregnancy with other poor reproductive or obstetric history, first trimester; O26.21 Pregnancy care for patient with recurrent pregnancy loss, first trimester; Z3A.14 14 weeks gestation of pregnancy; Z87.891 Personal history of nicotine dependence; Z88.6 Allergy status to analgesic agent; Z79.52 Long term (current) use of systemic steroids; Z79.899 Other long term (current) drug therapy
CPT/HCPCS: 87480; 87491; 87510; 87591; 87624; 87660; 88142; 99212

== ENCOUNTER 2021-06-29 15:08 | Outpatient (REF) | payer OTHER, SELFPAY ==
[2021-06-29 15:41] LABS: Basophils Percent Auto 0.2 % (0-2); Hemoglobin 11.6 g/dl (12.0-16.0); Imm Gran Pct Auto 1.1 % (0.0-0.4); MANUAL DIFF FLAG SCAN; Red Cell Distribution Width 13.2 % (11.0-16.0); SCAN SMEAR FLAG 1
[2021-06-29 15:42] LABS: Eosinophils Absolute Auto 0.1 X10*3/uL (0.0-0.4); Eosinophils Percent Auto 0.5 % (0-4); Hematocrit 33.3 % (37.0-47.0); Lymphocytes Percent Auto 10.9 % (20-40); Mean Corpuscular HGB Conc 34.8 g/dl (31.0-35.0); Mean Corpuscular Hemoglobin 27.8 pg (27.0-33.0); Mean Corpuscular Volume 79.9 fL (80.0-98.0); Monocytes Absolute Auto 0.5 X10*3/uL (0.1-1.2); Monocytes Percent Auto 5.1 % (2-11); Neutrophils Absolute Auto 7.7 x10*3/uL (2.0-8.3); Neutrophils Percent Auto 82.2 % (45-73); Red Blood Count 4.17 X10*6/uL (4.20-5.50); White Blood Count 9.4 X10*3/uL (4.8-10.8)
[2021-06-29 15:46] LABS: PLT ABN DIST 1; Platelet Count 32 X10*3/uL (160-400)
[2021-06-29 16:05] LABS: SLIDE REVIEW VERIFIED
== END 2021-06-29 15:09 | disposition home or self-care (01) ==
LOC: HO.LABR 15:08
PROVIDERS: Absent Provider Obstetrics & Gynecology; PCP Internal Medicine Medical Oncology; Visit Provider Internal Medicine Medical Oncology
DX: Z36.3 Encounter for antenatal screening for malformations (principal); O20.9 Hemorrhage in early pregnancy, unspecified; O34.42 Maternal care for other abnormalities of cervix, second trimester; O99.112 Other diseases of the blood and blood-forming organs and certain disorders involving the immune mechanism complicating pregnancy, second trimester; D69.3 Immune thrombocytopenic purpura; Z3A.14 14 weeks gestation of pregnancy
CPT/HCPCS: 36415; 85025

== ENCOUNTER 2021-07-14 12:09 | Outpatient (REF) | payer OTHER, SELFPAY ==
[2021-07-14 12:49] LABS: Basophils Percent Auto 0.2 % (0-2); Eosinophils Absolute Auto 0.1 X10*3/uL (0.0-0.4); Eosinophils Percent Auto 0.9 % (0-4); Mean Corpuscular Volume 80.8 fL (80.0-98.0); Red Cell Distribution Width 13.7 % (11.0-16.0); SCAN SMEAR FLAG 1
[2021-07-14 12:51] LABS: Imm Gran Abs Auto 0.09 X10*3/uL (0.00-0.03); Imm Gran Pct Auto 1.4 % (0.0-0.4); Lymphocytes Absolute Auto 1.3 X10*3/uL (1.2-4.9); MANUAL DIFF FLAG SCAN; Mean Corpuscular HGB Conc 34.3 g/dl (31.0-35.0); Mean Corpuscular Hemoglobin 27.7 pg (27.0-33.0); Monocytes Absolute Auto 0.4 X10*3/uL (0.1-1.2); Monocytes Percent Auto 5.6 % (2-11); Neutrophils Absolute Auto 4.7 x10*3/uL (2.0-8.3); Neutrophils Percent Auto 71.9 % (45-73); Red Blood Count 4.33 X10*6/uL (4.20-5.50); White Blood Count 6.6 X10*3/uL (4.8-10.8)
[2021-07-14 13:25] LABS: PLT ABN DIST 1
[2021-07-14 13:26] LABS: SLIDE REVIEW VERIFIED
[2021-07-14 13:28] LABS: Platelet Count 30 X10*3/uL (160-400)
== END 2021-07-14 12:10 | disposition home or self-care (01) ==
LOC: HO.LABR 12:09
PROVIDERS: PCP Internal Medicine Medical Oncology; Visit Provider Internal Medicine Medical Oncology
DX: D69.3 Immune thrombocytopenic purpura (principal)
CPT/HCPCS: 36415; 85025

== ENCOUNTER 2021-07-30 09:45 | Outpatient (REF) | payer OTHER, SELFPAY ==
[2021-07-30 10:10] LABS: MANUAL DIFF FLAG NO
[2021-07-30 10:49] LABS: Basophils Percent Auto 0.2 % (0-2); Eosinophils Percent Auto 0.1 % (0-4); Hematocrit 33.5 % (37.0-47.0); Hemoglobin 11.5 g/dl (12.0-16.0); Imm Gran Abs Auto 0.08 X10*3/uL (0.00-0.03); Imm Gran Pct Auto 0.8 % (0.0-0.4); Lymphocytes Absolute Auto 1.4 X10*3/uL (1.2-4.9); Lymphocytes Percent Auto 13.5 % (20-40); Mean Corpuscular HGB Conc 34.3 g/dl (31.0-35.0); Mean Corpuscular Hemoglobin 27.6 pg (27.0-33.0); Mean Corpuscular Volume 80.3 fL (80.0-98.0); Monocytes Absolute Auto 0.7 X10*3/uL (0.1-1.2); Monocytes Percent Auto 6.9 % (2-11); Neutrophils Absolute Auto 8.1 x10*3/uL (2.0-8.3); Neutrophils Percent Auto 78.5 % (45-73); Red Blood Count 4.17 X10*6/uL (4.20-5.50); White Blood Count 10.3 X10*3/uL (4.8-10.8)
[2021-07-30 10:58] LABS: Platelet Count 33 X10*3/uL (160-400)
[2021-07-30 11:33] LABS: Platelet Count (Citrate) 33 X10*3/uL (150-310)
== END 2021-07-30 09:46 | disposition home or self-care (01) ==
LOC: HO.LAB 09:45
PROVIDERS: PCP Internal Medicine Medical Oncology; Visit Provider Internal Medicine Medical Oncology
DX: D69.3 Immune thrombocytopenic purpura (principal)
CPT/HCPCS: 36415; 85025; 99211; 99212

== ENCOUNTER 2021-08-24 16:02 | Outpatient (REF) | payer OTHER, SELFPAY ==
[2021-08-24 16:50] LABS: Basophils Percent Auto 0.3 % (0-2); SCAN SMEAR FLAG 1
[2021-08-24 16:52] LABS: Eosinophils Absolute Auto 0.1 X10*3/uL (0.0-0.4); Eosinophils Percent Auto 1.2 % (0-4); Hematocrit 32.1 % (37.0-47.0); Hemoglobin 10.6 g/dl (12.0-16.0); Imm Gran Abs Auto 0.08 X10*3/uL (0.00-0.03); Lymphocytes Percent Auto 25.2 % (20-40); MANUAL DIFF FLAG SCAN; Mean Corpuscular Hemoglobin 27.5 pg (27.0-33.0); Mean Corpuscular Volume 83.2 fL (80.0-98.0); Monocytes Absolute Auto 0.6 X10*3/uL (0.1-1.2); Monocytes Percent Auto 7.7 % (2-11); Neutrophils Percent Auto 64.6 % (45-73); Red Blood Count 3.86 X10*6/uL (4.20-5.50); Red Cell Distribution Width 13.1 % (11.0-16.0); White Blood Count 7.8 X10*3/uL (4.8-10.8)
[2021-08-24 17:21] LABS: PLT ABN DIST 1; Platelet Count 41 X10*3/uL (160-400)
[2021-08-24 17:22] LABS: SLIDE REVIEW VERIFIED
== END 2021-08-24 16:03 | disposition home or self-care (01) ==
LOC: HO.LABR 16:02
PROVIDERS: PCP Internal Medicine Medical Oncology; Visit Provider Internal Medicine Medical Oncology
DX: D69.3 Immune thrombocytopenic purpura (principal)
CPT/HCPCS: 36415; 85025

== ENCOUNTER 2021-12-27 22:36 | Emergency (ER) | payer OTHER, SELFPAY ==
--- NOTE | ~2021-12-27 | CT_ITS ---
EXAMINATION: CT ANGIOGRAM OF THE CHEST; CONTRAST-ENHANCED CT OF THE ABDOMEN AND PELVIS INDICATION: 11 days , sudden onset right flank and chest pain COMPARISON: 01/10/2019 TECHNIQUE: 85 mL Omnipaque 350 IV contrast was utilized. Multidetector helical imaging was performed through the chest per PE protocol. Coronal, sagittal, and MIP images of the chest were created. In addition, multidetector helical imaging was performed through the abdomen and pelvis. Coronal and sagittal reformatted images were created at the technologist workstation. DOSE LOWERING TECHNIQUES: This CT examination was performed using dose optimization techniques as appropriate, variously including the following: - Automated exposure control - Adjustment of mA and/or kV according to patient size (this includes techniques or standardized protocols for targeted exams were dose is matched to indication/reason for exam; i.e. extremities or head) - Use of iterative reconstruction technique DLP: 995 mGy-cm FINDINGS: Chest: No regions of consolidation bilaterally. No pneumothorax or pleural effusion. The visualized thyroid gland is unremarkable. There are subcentimeter mediastinal lymph nodes within the range of normal variation. Cardiac size is within normal limits; no pericardial effusion. No axillary lymphadenopathy is present. Abdomen/Pelvis: The liver is homogeneous in attenuation without intrahepatic biliary ductal dilatation. The gallbladder is unremarkable. The spleen, pancreas, and adrenal glands are within normal limits. There is severe right hydroureteronephrosis with a 3 mm calculus at the right ureterovesicular junction. The right nephrogram is delayed. Left extrarenal pelvis is noted without obstructing calculus. The urinary bladder is unremarkable. The uterus appears mildly prominent, in keeping with state. No evidence of bowel obstruction or significant wall thickening. No free fluid or free air is identified. The vascular structures are unremarkable. No retroperitoneal or pelvic lymphadenopathy is seen. No acute osseous findings. CT/CT angio chest PE protocol IMPRESSION: 1. Calculus measuring 3 mm at the right ureterovesicular junction with severe hydroureteronephrosis. 2. No pulmonary embolus identified.
--- NOTE | ~2021-12-27 | CT_ITS ---
EXAMINATION: CT ANGIOGRAM OF THE CHEST; CONTRAST-ENHANCED CT OF THE ABDOMEN AND PELVIS INDICATION: 11 days , sudden onset right flank and chest pain COMPARISON: 01/10/2019 TECHNIQUE: 85 mL Omnipaque 350 IV contrast was utilized. Multidetector helical imaging was performed through the chest per PE protocol. Coronal, sagittal, and MIP images of the chest were created. In addition, multidetector helical imaging was performed through the abdomen and pelvis. Coronal and sagittal reformatted images were created at the technologist workstation. DOSE LOWERING TECHNIQUES: This CT examination was performed using dose optimization techniques as appropriate, variously including the following: - Automated exposure control - Adjustment of mA and/or kV according to patient size (this includes techniques or standardized protocols for targeted exams were dose is matched to indication/reason for exam; i.e. extremities or head) - Use of iterative reconstruction technique DLP: 995 mGy-cm FINDINGS: Chest: No regions of consolidation bilaterally. No pneumothorax or pleural effusion. The visualized thyroid gland is unremarkable. There are subcentimeter mediastinal lymph nodes within the range of normal variation. Cardiac size is within normal limits; no pericardial effusion. No axillary lymphadenopathy is present. Abdomen/Pelvis: The liver is homogeneous in attenuation without intrahepatic biliary ductal dilatation. The gallbladder is unremarkable. The spleen, pancreas, and adrenal glands are within normal limits. There is severe right hydroureteronephrosis with a 3 mm calculus at the right ureterovesicular junction. The right nephrogram is delayed. Left extrarenal pelvis is noted without obstructing calculus. The urinary bladder is unremarkable. The uterus appears mildly prominent, in keeping with state. No evidence of bowel obstruction or significant wall thickening. No free fluid or free air is identified. The vascular structures are unremarkable. No retroperitoneal or pelvic lymphadenopathy is seen. No acute osseous findings. CT/CT abdomen pelvis w con IMPRESSION: 1. Calculus measuring 3 mm at the right ureterovesicular junction with severe hydroureteronephrosis. 2. No pulmonary embolus identified.
[2021-12-27 22:50] VITALS: BP 121/69; PULSE 71; RESP 18; TEMP 36.8; O2SAT 100; BMI 34.4
[2021-12-27 23:22] LABS: Appearance Urine CLEAR; Color Urine YELLOW; Glucose Urine UA NEG (NEG); Leukocyte Esterase Urine NEG (NEG); MANUAL DIFF FLAG NO; Nitrite Urine NEG (NEG); Specific Gravity - Urine >= 1.030 (1.005-1.025); UACC Culture Trigger NO; Urine Blood 3+ (NEG); Urine Ketones NEG (NEG); Urine Protein 1+ MG/DL (NEG-TRACE)
[2021-12-27 23:24] LABS: Basophils Percent Auto 0.6 % (0-2); Eosinophils Absolute Auto 0.2 X10*3/uL (0.0-0.4); Hematocrit 33.1 % (37.0-47.0); Hemoglobin 10.6 g/dl (12.0-16.0); Imm Gran Abs Auto 0.01 X10*3/uL (0.00-0.03); Imm Gran Pct Auto 0.2 % (0.0-0.4); Lymphocytes Absolute Auto 1.3 X10*3/uL (1.2-4.9); Lymphocytes Percent Auto 26.5 % (20-40); Mean Corpuscular Hemoglobin 25.4 pg (27.0-33.0); Mean Corpuscular Volume 79.2 fL (80.0-98.0); Monocytes Absolute Auto 0.4 X10*3/uL (0.1-1.2); Monocytes Percent Auto 7.9 % (2-11); Neutrophils Absolute Auto 3.1 x10*3/uL (2.0-8.3); Neutrophils Percent Auto 61.8 % (45-73); Red Blood Count 4.18 X10*6/uL (4.20-5.50); Red Cell Distribution Width 18.4 % (11.0-16.0); White Blood Count 5.1 X10*3/uL (4.8-10.8)
[2021-12-27 23:25] LABS: Platelet Count 67 X10*3/uL (160-400)
[2021-12-27 23:35] LABS: Bacteria Urine 1+ /LPF; Mucus Urine 3+ /LPF; Squamous Epithelial Cell Urine 1+ /LPF; WBC Urine 0-2 /HPF (0-4)
[2021-12-27 23:43] LABS: Alanine Aminotransferase 31 U/L (0-31); Alkaline Phosphatase 116 U/L (39-117); Anion Gap 11 (12-20); Aspartate Amino Transferase 23 U/L (5-31); Bilirubin Total 0.4 mg/dL (0.0-1.0); Blood Urea Nitrogen 13 mg/dL (9-16); Calcium 9.1 mg/dL (8.4-10.2); Carbon Dioxide 25 mmol/L (22-29); Chloride 108 mmol/L (96-108); Creatinine Clr Calc Pharmacy 106.8; Estimated Glomerular Filt Rate > 60; Glucose Random 102 mg/dL (60-115); Potassium 3.8 mmol/L (3.3-5.1); Sodium 140 mmol/L (135-145); Total Protein 7.9 g/dL (6.5-8.0)
[2021-12-28 00:24] VITALS: BP 136/73; PULSE 75; RESP 16; TEMP 37.1; O2SAT 100
[2021-12-28 04:05] VITALS: BP 120/74; PULSE 73; RESP 16; TEMP 37.1; O2SAT 98
--- NOTE | 2021-12-28 04:25 | ED.ABDPAIN ---
HPI - Abdominal Pain General Chief Complaint: Abdominal Pain Stated Complaint: gave 11 days ago, pain in right side, Time Seen by Provider: 12/27/21 22:47 Source: patient Mode of arrival: ambulatory Limitations: no limitations History of Present Illness HPI narrative: 31-year-old female 11 days post part who presents emergency department for evaluation of sudden onset of right flank pain that occurred around 19:00 hours. Patient states she was at rest when the pain began. She points to her right flank and right lower quadrant when asked to localize the pain. She states that the pain is a constant, sharp which is greater than 10/10. The pain is worse with movement, and worse with breathing. She states she does feel short of breath when she tries to take a deep breath in and out, she denied dyspnea on exertion. She states that she has had urinary frequency but no dysuria. Patient is 11 days . She states she had uncomplicated full-term delivery and was discharged home with her baby, the day after delivery. MD elicited complaint: flank pain Pertinent past history: other ( times ) Onset (ago): hour(s) (8) Pain Consistency: constant Location: RUQ and R flank Severity: severe Pain scale (0-10): 10 Quality: sharp Radiation: RLQ Exacerbating factors: movement and other (Breathing) Relieving factors: nothing Context: other ( times 11 days) Associated symptoms: other (Diarrhea) Related Data Home Medications Medication Instructions Recorded Confirmed prednisone 20 mg tablet 20 mg PO DAILY 06/29/21 06/29/21 Previous Rx's Medication Instructions Recorded vitamin with calcium 1 tab PO DAILY #30 tabs 02/19/21 no.72-iron 27 mg-folic acid 1 mg tablet ( Vitamins Plus Low Iron) doxylamine succinate 25 mg tablet 12.5 mg PO BEDTIME PRN sleep 30 06/19/21 (Unisom (doxylamine)) days #15 tabs pyridoxine (vitamin B6) 25 mg 25 mg PO TID 30 days #90 tabs 06/19/21 tablet famotidine 20 mg tablet 20 mg PO BID PRN heartburn 2 weeks 07/30/21 #30 tabs morphine 15 mg immediate release 15 mg PO Q4-6H PRN pain #14 tabs 12/28/21 tablet ondansetron 4 mg disintegrating 4 mg PO Q6-8H PRN nausea and 07/25/22 tablet vomiting #14 tabs prednisone 20 mg tablet 40 mg PO DAILY 7 days #14 tabs 12/28/21 Allergies Allergy/AdvReac Type Severity Reaction Status Date / Time aspirin [ASPIRIN] Allergy Intermediate PT HAS H/O Verified 12/27/21 22:50 LOW PALTELETS Review of Systems Review of Systems Yes all other systems are reviewed and are negative [facility] Past Medical History [facility] Narrative: Past medical history: Reviewed below, times Cornelius days. Past surgical history: None. Social history: She denies tobacco use. She rarely drinks alcohol. She denies drug use. Medical History Chronic ITP (idiopathic thrombocytopenia) Migraine Miscarriage Family History Family History Father Migraine Mother Migraine Social History Social History Household Members: Children Housing: Apartment Alcohol intake: never Patient Tobacco Use Status: Former Tobacco user Special vivian needs: No Agree to transfusion: Yes Advance Directives: No Advance Directives Information Provided: Yes Sexual orientation: Straight/Heterosexual Gender identity: Female Physical Exam ED Vital Signs: Vital Signs - 24 hr 12/27/21 22:50 12/28/21 00:24 12/28/21 04:05 Temperature 98.3 F 98.8 F 98.7 F Pulse Rate 71 75 73 Respiratory Rate 18 16 16 Blood Pressure 121/69 136/73 120/74 Pulse Oximetry 100 100 98 Oxygen Delivery Method Room Air Room Air Room Air 12/28/21 04:30 Temperature Pulse Rate Respiratory Rate 14 Blood Pressure Pulse Oximetry Oxygen Delivery Method BMI result Body Mass Index 34.4 Const General: cooperative and no acute distress Orientation/consciousness: oriented to person and oriented to place Limitations: no limitations HENMT Head: Yes normal to inspection, Yes normocephalic and Yes atraumatic Ears: external ears normal General nose exam: Normal external nose present Face and sinus: Yes normal facial exam Mouth: Normal oral and palatal mucosa present Throat: Yes posterior oropharynx normal Eyes General: appearance normal, both eyes and all related structures Pupils: Equal, round and reactive pupils present Neck Neck: Yes normal visual inspection, Yes no lymphadenopathy, Yes trachea midline and Yes supple Chest Chest palpation & inspection: normal inspection of the chest and normal palpation of entire chest wall Resp Effort & Inspection: normal respiratory effort and able to speak in complete sentences Auscultation: clear to auscultation bilaterally Cardio Rate: regular rate Rhythm: regular rhythm Heart sounds: S1 normal heart sound present, S2 normal heart sound present and no murmurs GI Inspection: Yes normal to inspection Palpation (GI): Soft to palpation, nontender and no guarding Auscultation: normal bowel sounds General: Yes CVA tenderness on the right (Moderate) Back/Spine/Pelvis Back: CVA tenderness Skin General skin exam: no rashes or lesions noted Neuro General: oriented to person and oriented to place Cranial nerves: Yes CN's II-XII intact bilaterally and Yes Equal, round and reactive pupils present Cognition (Neuro): normal cognition Motor exam (neuro): 5/5 motor strength present throughout Extrem General: Yes normal to inspection Psych Appearance: grossly normal Speech and movement: Normal speech and movement present Affect: normal affect Attitude: cooperative Thought process: Normal thought process present Thought content: Normal thought content present Course Course Course Narrative: 31-year-old female 11 days who presents emergency department for evaluation of sudden onset right flank pain that radiates to her right lower quadrant, pain is worse with movement and breathing, patient does have shortness of breath and dyspnea on exertion. Vital signs revealed a normal blood pressure of 121/69 and normal pulse of 71. Examination did reveal right sided CVA tenderness with no right lower quadrant tenderness. Differential includes was not limited to renal colic, pulmonary embolism, pyelonephritis, appendicitis, urinary tract infection. Laboratory evaluation was ordered. Patient was also ordered to get morphine 4 mg IV, Zofran 4 mg IV and normal saline IV x1 L. I ordered a CT angiogram pulmonary embolism protocol and CT scan of the abdomen pelvis with IV contrast. 0431: Laboratory evaluation: Platelet count low 67,000-chronic, CMP normal. Urinalysis 3+ blood, 1+ protein, negative leukocyte esterase, negative nitrates. Microscopic revealed 9 RBCs, 2 WBCs, 1+ bacteria, 1+ squamous cell. 0642: Radiology evaluation: CT scan of the abdomen pelvis with IV contrast and a CT pulmonary angiogram PE protocol radiology reading below: IMPRESSION: IMPRESSION: 1. Calculus measuring 3 mm at the right ureterovesicular junction with severe hydroureteronephrosis. 2. No pulmonary embolus identified. The 3 mm right UVJ calculus explains the patient's pain I did discuss this with the patient. Given her ITP the patient will be started on prednisone 40 mg once a day for 7 days as an anti-inflammatory pain medication. She was advised to take Tylenol for pain and for pain not relieved by these 2 medications she was prescribed morphine. She was also prescribed Zofran 4 mg ODT every 6-8 hours as needed for nausea and vomiting. She is advised to strain her urine and follow-up with our covering neurologist, Dr. Wells. MDM - Abdominal Pain Lab Data Result diagrams: 12/27/21 23:14 12/27/21 23:14 Labs: Lab Results 12/27/21 12/27/21 12/27/21 Range/Units 23:14 23:14 23:14 WBC 5.1 (4.8-10.8) X10*3/uL RBC 4.18 L (4.20-5.50) X10*6/uL Hgb 10.6 L (12.0-16.0) g/dl Hct 33.1 L (37.0-47.0) % MCV 79.2 L (80.0-98.0) fL MCH 25.4 L (27.0-33.0) pg MCHC 32.0 (31.0-35.0) g/dl RDW 18.4 H (11.0-16.0) % Plt Count 67 L D (160-400) X10*3/uL MPV TNP Immature Gran % (Auto) 0.2 (0.0-0.4) % Neut % (Auto) 61.8 (45-73) % Lymph % (Auto) 26.5 (20-40) % [place] % (Auto) 7.9 (2-11) % Eos % (Auto) 3.0 (0-4) % Baso % (Auto) 0.6 (0-2) % Lymph # (Auto) 1.3 (1.2-4.9) X10*3/uL [place] # (Auto) 0.4 (0.1-1.2) X10*3/uL Eos # (Auto) 0.2 (0.0-0.4) X10*3/uL Baso # (Auto) 0.0 (0.0-0.2) X10*3/uL Abs Immat Gran (auto) 0.01 (0.00-0.03) X10*3/uL Absolute Neuts (auto) 3.1 (2.0-8.3) x10*3/uL Absolute Nucleated RBC 0.000 (0.0-0.012) X10*3/uL Nucleated RBC % (auto) 0.0 (0.0-0.2) /100WBC Sodium 140 (135-145) mmol/L Potassium 3.8 (3.3-5.1) mmol/L Chloride 108 (96-108) mmol/L Carbon Dioxide 25 (22-29) mmol/L Anion Gap 11 L (12-20) BUN 13 (9-16) mg/dL Creatinine 0.73 (0.5-1.4) mg/dL Estim Creat Clear Calc 106.8 Estimated GFR > 60 Random Glucose 102 (60-115) mg/dL Calcium 9.1 (8.4-10.2) mg/dL Total Bilirubin 0.4 (0.0-1.0) mg/dL AST 23 (5-31) U/L ALT 31 (0-31) U/L Alkaline Phosphatase 116 D (39-117) U/L Total Protein 7.9 (6.5-8.0) g/dL Albumin 4.0 (3.5-5.0) g/dL Urine Color YELLOW Urine Appearance CLEAR Urine pH 6.0 (5.0-8.0) Ur Specific [place] >= 1.030 H (1.005-1.025) Urine Protein 1+ H (NEG-TRACE) MG/DL Urine Glucose (UA) NEG (NEG) MG/DL Urine Ketones NEG (NEG) MG/DL Urine Blood 3+ H (NEG) Urine Nitrite NEG (NEG) Ur Leukocyte Esterase NEG (NEG) Urine RBC 5-9 H (0) /HPF Urine WBC 0-2 (0-4) /HPF Ur Squamous Epith Cells 1+ /LPF Urine Bacteria 1+ /LPF Urine Mucus 3+ /LPF Discharge Plan Discharge Clinical Impression: Right ureteral calculus, Renal colic on right side, Hydronephrosis of right kidney Patient Disposition: Home, Self-Care Instructions: Kidney Stones (ED), How to Strain Your Urine (ED) Additional Instructions: The CT scan of your lungs was normal The CT scan of your abdomen pelvis revealed a 3 mm stone in the right ureter (the tube that connects the kidney to the bladder) right where the ureter attaches to the bladder. Your right kidney is also swollen. This is the cause of your pain. Take prednisone 20 mg pills, 2 pills once a day for 7 days. This is an anti-inflammatory pain medication Take Tylenol (acetaminophen) 2 pills every 4-6 hours as needed for pain. For pain not relieved by prednisone or Tylenol take morphine 15 mg pills, 1 pill every 4 hours as needed for pain. This medication will make you sleepy, do not drive or work while taking this medication. Morphine is a narcotic medication and can be addicting. If you are concerned about addiction you can ask the pharmacist for less pills or do not get this prescription filled. Take Zofran ODT 4 mg pills, 1 pill dissolved in your mouth every 8 hours as needed for nausea and vomiting. Follow-up with our urologist Dr. Filiberto Wells in 1 week. Please return to the emergency department if your symptoms get worse or if you develop any symptoms that are concerning to you. Prescriptions: New prednisone 20 mg tablet 40 mg PO DAILY 7 Days Qty: 14 0RF morphine 15 mg tablet 15 mg PO Q4-6H PRN (Reason: pain) Qty: 14 0RF Rx Instructions: Patient may request partial fill; Partial Fill upon patient request. ondansetron 4 mg tablet,disintegrating 4 mg PO Q6-8H PRN (Reason: nausea and vomiting) Qty: 14 0RF No Action pyridoxine (vitamin B6) 25 mg tablet 25 mg PO TID 30 Days Qty: 90 1RF Unisom (doxylamine) 25 mg tablet 12.5 mg PO BEDTIME PRN (Reason: sleep) 30 Days Qty: 15 0RF Rx Instructions: Take 1/2 tablet at bedtime Vitamin Plus Low Iron 27 mg iron- 1 mg tablet 1 tab PO DAILY Qty: 30 11RF prednisone 20 mg tablet 20 mg PO DAILY famotidine 20 mg tablet 20 mg PO BID PRN (Reason: heartburn) 14 Days Qty: 30 0RF
[2021-12-28 04:30] VITALS: RESP 14
[2021-12-28] MEDS: Morphine Sulfate 4 MG/ML CARTRIDGE IVPUSH ×2 (04:30→06:57)
[2021-12-28] MEDS: 0.9 % Sodium Chloride 1,000 ML 999 ML IV (04:30)
[2021-12-28] MEDS: iohexoL 350 MG/ML 100 ML INFUS..BTL IV (04:57)
[2021-12-28 06:57] VITALS: RESP 14
[2021-12-28 07:38] VITALS: BP 105/58; PULSE 70; RESP 18; TEMP 36.5; O2SAT 99
== END 2021-12-28 07:40 | disposition home or self-care (01) ==
PROVIDERS: Emergency Provider Emergency Medicine Emergency Medical Services; PCP Internal Medicine Medical Oncology
DX: N13.2 Hydronephrosis with renal and ureteral calculous obstruction (principal); R10.2 Pelvic and perineal pain; Z87.891 Personal history of nicotine dependence; Z79.899 Other long term (current) drug therapy
CPT/HCPCS: 36415; 71275; 74177; 80053; 81001; 85025; 96361; 96374; 96376; 99284; J2270; Q9967

== ENCOUNTER 2022-01-12 21:03 | Emergency (ER) | payer OTHER, SELFPAY ==
[2022-01-12 21:54] VITALS: BP 132/80; PULSE 100; RESP 16; TEMP 37.6; O2SAT 99; BMI 34.4
[2022-01-12] MEDS: Ibuprofen 600 MG TABLET PO (22:00)
--- NOTE | 2022-01-12 22:00 | PC.NURSE ---
pt requesting to leave after covid swab. pt states she just wanted to know, and that she can take care of herself at home
[2022-01-12 22:12] LABS: COVID-19 Test Positive (Negative)
--- NOTE | 2022-01-12 22:16 | PC.NURSE ---
pt left ER, and was called to notify her of a positive covid result. pt instructed to isolate for 5 days/until sx subside
== END 2022-01-12 22:22 | disposition left against medical advice (07) ==
PROVIDERS: Emergency Provider Emergency Medicine
DX: U07.1 COVID-19 (principal)
CPT/HCPCS: 87635; 99282; 99283

== ENCOUNTER 2022-04-07 14:31 | Outpatient (REF) | payer OTHER, SELFPAY ==
[2022-04-07 14:45] LABS: MANUAL DIFF FLAG NO
[2022-04-07 15:02] LABS: Basophils Percent Auto 0.8 % (0-2); Eosinophils Absolute Auto 0.2 X10*3/uL (0.0-0.4); Eosinophils Percent Auto 3.7 % (0-4); Hematocrit 36.6 % (37.0-47.0); Hemoglobin 11.4 g/dl (12.0-16.0); Imm Gran Abs Auto 0.01 X10*3/uL (0.00-0.03); Imm Gran Pct Auto 0.2 % (0.0-0.4); Lymphocytes Absolute Auto 1.5 X10*3/uL (1.2-4.9); Lymphocytes Percent Auto 28.7 % (20-40); Mean Corpuscular HGB Conc 31.1 g/dl (31.0-35.0); Mean Corpuscular Hemoglobin 22.7 pg (27.0-33.0); Mean Corpuscular Volume 72.9 fL (80.0-98.0); Monocytes Absolute Auto 0.6 X10*3/uL (0.1-1.2); Monocytes Percent Auto 11.5 % (2-11); Neutrophils Absolute Auto 2.8 x10*3/uL (2.0-8.3); Neutrophils Percent Auto 55.1 % (45-73); Red Blood Count 5.02 X10*6/uL (4.20-5.50); Red Cell Distribution Width 14.4 % (11.0-16.0); White Blood Count 5.1 X10*3/uL (4.8-10.8)
[2022-04-07 15:03] LABS: Platelet Count 46 X10*3/uL (160-400)
[2022-04-07 15:35] LABS: Alanine Aminotransferase 24 U/L (0-31); Albumin Level 4.1 g/dL (3.5-5.0); Alkaline Phosphatase 122 U/L (39-117); Anion Gap 12 (12-20); Aspartate Amino Transferase 19 U/L (5-31); Bilirubin Total 0.7 mg/dL (0.0-1.0); Blood Urea Nitrogen 10 mg/dL (9-16); Calcium 9.3 mg/dL (8.4-10.2); Carbon Dioxide 27 mmol/L (22-29); Chloride 104 mmol/L (96-108); Estimated Glomerular Filt Rate > 60; Glucose Random 83 mg/dL (60-115); Sodium 139 mmol/L (135-145); Total Protein 7.4 g/dL (6.5-8.0)
[2022-04-07 15:57] LABS: Ferritin 9 ng/mL (10-122); Vitamin D 25-OH Total 14.4 ng/mL (>30)
== END 2022-04-07 14:32 | disposition home or self-care (01) ==
LOC: HO.LAB 14:31
PROVIDERS: PCP Internal Medicine Medical Oncology; Visit Provider Internal Medicine Medical Oncology
DX: D69.3 Immune thrombocytopenic purpura (principal); E66.9 Obesity, unspecified; D50.9 Iron deficiency anemia, unspecified
CPT/HCPCS: 36415; 80053; 82306; 82728; 85025

== ENCOUNTER 2022-06-24 15:54 | Outpatient (REF) | payer OTHER, SELFPAY ==
[2022-06-24 16:35] LABS: Basophils Percent Auto 0.7 % (0-2); Imm Gran Abs Auto 0.02 X10*3/uL (0.00-0.03); Imm Gran Pct Auto 0.3 % (0.0-0.4); Mean Corpuscular Hemoglobin 22.8 pg (27.0-33.0)
[2022-06-24 16:36] LABS: Eosinophils Absolute Auto 0.2 X10*3/uL (0.0-0.4); Eosinophils Percent Auto 3.1 % (0-4); Hematocrit 36.6 % (37.0-47.0); Hemoglobin 11.6 g/dl (12.0-16.0); Lymphocytes Absolute Auto 1.8 X10*3/uL (1.2-4.9); Lymphocytes Percent Auto 30.4 % (20-40); Mean Corpuscular HGB Conc 31.7 g/dl (31.0-35.0); Mean Corpuscular Volume 71.9 fL (80.0-98.0); Monocytes Absolute Auto 0.5 X10*3/uL (0.1-1.2); Neutrophils Absolute Auto 3.4 x10*3/uL (2.0-8.3); Neutrophils Percent Auto 57.5 % (45-73); Red Blood Count 5.09 X10*6/uL (4.20-5.50); White Blood Count 5.9 X10*3/uL (4.8-10.8)
[2022-06-24 16:39] LABS: Platelet Count 42 X10*3/uL (160-400)
[2022-06-24 16:40] LABS: PLT ABN DIST 1
[2022-06-24 16:57] LABS: MANUAL DIFF FLAG SCAN; SCAN SMEAR FLAG 1; SLIDE REVIEW VERIFIED
[2022-06-24 17:29] LABS: Ferritin 10 ng/mL (10-122)
== END 2022-06-24 15:55 | disposition home or self-care (01) ==
LOC: HO.LAB 15:54
PROVIDERS: PCP Internal Medicine Medical Oncology; Visit Provider Internal Medicine Medical Oncology
DX: D69.3 Immune thrombocytopenic purpura (principal); E66.9 Obesity, unspecified; D50.9 Iron deficiency anemia, unspecified
CPT/HCPCS: 36415; 82728; 85025

== ENCOUNTER 2022-07-21 10:47 | Outpatient (REF) | payer OTHER, SELFPAY ==
[2022-07-21 11:02] LABS: MANUAL DIFF FLAG NO
[2022-07-21 12:10] LABS: Basophils Percent Auto 0.3 % (0-2); Eosinophils Percent Auto 0.5 % (0-4); Hematocrit 39.7 % (37.0-47.0); Hemoglobin 12.6 g/dl (12.0-16.0); Imm Gran Abs Auto 0.06 X10*3/uL (0.00-0.03); Lymphocytes Absolute Auto 1.2 X10*3/uL (1.2-4.9); Lymphocytes Percent Auto 20.5 % (20-40); Mean Corpuscular HGB Conc 31.7 g/dl (31.0-35.0); Mean Corpuscular Hemoglobin 23.2 pg (27.0-33.0); Mean Corpuscular Volume 73.2 fL (80.0-98.0); Monocytes Absolute Auto 0.4 X10*3/uL (0.1-1.2); Monocytes Percent Auto 6.8 % (2-11); Neutrophils Absolute Auto 4.1 x10*3/uL (2.0-8.3); Neutrophils Percent Auto 70.9 % (45-73); Red Blood Count 5.42 X10*6/uL (4.20-5.50); Red Cell Distribution Width 14.9 % (11.0-16.0); White Blood Count 5.8 X10*3/uL (4.8-10.8)
[2022-07-21 12:11] LABS: Platelet Count 27 X10*3/uL (160-400)
[2022-07-21 12:56] LABS: Platelet Count (Citrate) 21 X10*3/uL (150-310)
[2022-07-24 08:08] LABS: TS Negative Control Passed; TS Panel A 0; TS Panel B 0; TS Positive Control Passed; TSpotTB Negative (Negative)
== END 2022-07-21 10:48 | disposition home or self-care (01) ==
LOC: HO.LAB 10:47
PROVIDERS: PCP Internal Medicine Medical Oncology; Visit Provider Internal Medicine Medical Oncology
DX: Z11.1 Encounter for screening for respiratory tuberculosis (principal); D69.3 Immune thrombocytopenic purpura
CPT/HCPCS: 36415; 85025; 86481

== ENCOUNTER 2022-08-31 13:50 | Outpatient (REF) | payer OTHER, SELFPAY ==
[2022-08-31 14:03] LABS: MANUAL DIFF FLAG NO
[2022-08-31 14:35] LABS: Basophils Percent Auto 0.5 % (0-2); Eosinophils Absolute Auto 0.2 X10*3/uL (0.0-0.4); Eosinophils Percent Auto 2.7 % (0-4); Hematocrit 35.4 % (37.0-47.0); Hemoglobin 11.1 g/dl (12.0-16.0); Imm Gran Abs Auto 0.02 X10*3/uL (0.00-0.03); Imm Gran Pct Auto 0.4 % (0.0-0.4); Lymphocytes Absolute Auto 1.9 X10*3/uL (1.2-4.9); Lymphocytes Percent Auto 34.1 % (20-40); Mean Corpuscular HGB Conc 31.4 g/dl (31.0-35.0); Mean Corpuscular Hemoglobin 22.5 pg (27.0-33.0); Mean Corpuscular Volume 71.7 fL (80.0-98.0); Monocytes Absolute Auto 0.6 X10*3/uL (0.1-1.2); Monocytes Percent Auto 9.9 % (2-11); Neutrophils Absolute Auto 2.9 x10*3/uL (2.0-8.3); Neutrophils Percent Auto 52.4 % (45-73); Red Blood Count 4.94 X10*6/uL (4.20-5.50); Red Cell Distribution Width 15.2 % (11.0-16.0); White Blood Count 5.6 X10*3/uL (4.8-10.8)
[2022-08-31 14:36] LABS: Platelet Count 43 X10*3/uL (160-400)
== END 2022-08-31 13:51 | disposition home or self-care (01) ==
LOC: HO.LAB 13:50
PROVIDERS: PCP Internal Medicine Medical Oncology; Visit Provider Internal Medicine Medical Oncology
DX: D69.3 Immune thrombocytopenic purpura (principal); D50.9 Iron deficiency anemia, unspecified
CPT/HCPCS: 36415; 85025

== ENCOUNTER 2022-11-15 15:13 | Outpatient (REF) | payer OTHER, SELFPAY ==
[2022-11-15 15:23] LABS: MANUAL DIFF FLAG NO
[2022-11-15 15:45] LABS: Basophils Percent Auto 0.9 % (0-2); Eosinophils Absolute Auto 0.2 X10*3/uL (0.0-0.4); Hematocrit 36.6 % (37.0-47.0); Hemoglobin 11.1 g/dl (12.0-16.0); Imm Gran Abs Auto 0.02 X10*3/uL (0.00-0.03); Imm Gran Pct Auto 0.4 % (0.0-0.4); Lymphocytes Absolute Auto 1.3 X10*3/uL (1.2-4.9); Lymphocytes Percent Auto 29.5 % (20-40); Mean Corpuscular HGB Conc 30.3 g/dl (31.0-35.0); Mean Corpuscular Hemoglobin 21.7 pg (27.0-33.0); Mean Corpuscular Volume 71.5 fL (80.0-98.0); Monocytes Absolute Auto 0.4 X10*3/uL (0.1-1.2); Neutrophils Absolute Auto 2.6 x10*3/uL (2.0-8.3); Neutrophils Percent Auto 57.2 % (45-73); Red Blood Count 5.12 X10*6/uL (4.20-5.50); Red Cell Distribution Width 14.9 % (11.0-16.0); White Blood Count 4.5 X10*3/uL (4.8-10.8)
[2022-11-15 16:01] LABS: Platelet Count (Citrate) 33 X10*3/uL (150-310)
[2022-11-15 16:11] LABS: Platelet Count 35 X10*3/uL (160-400)
== END 2022-11-15 15:14 | disposition home or self-care (01) ==
LOC: HO.LAB 15:13
PROVIDERS: PCP Internal Medicine Medical Oncology; Visit Provider Internal Medicine Medical Oncology
DX: D69.3 Immune thrombocytopenic purpura (principal)
CPT/HCPCS: 36415; 85025

== ENCOUNTER 2022-12-28 08:40 | Outpatient (REF) | payer OTHER, SELFPAY ==
[2022-12-28 09:21] LABS: MANUAL DIFF FLAG NO
[2022-12-28 10:34] LABS: Basophils Absolute Auto 0.1 X10*3/uL (0.0-0.2); Eosinophils Absolute Auto 0.2 X10*3/uL (0.0-0.4); Eosinophils Percent Auto 4.6 % (0-4); Hematocrit 36.6 % (37.0-47.0); Hemoglobin 11.1 g/dl (12.0-16.0); Imm Gran Abs Auto 0.01 X10*3/uL (0.00-0.03); Imm Gran Pct Auto 0.2 % (0.0-0.4); Lymphocytes Absolute Auto 1.6 X10*3/uL (1.2-4.9); Mean Corpuscular HGB Conc 30.3 g/dl (31.0-35.0); Mean Corpuscular Volume 72.6 fL (80.0-98.0); Monocytes Absolute Auto 0.5 X10*3/uL (0.1-1.2); Monocytes Percent Auto 9.5 % (2-11); Neutrophils Absolute Auto 2.7 x10*3/uL (2.0-8.3); Neutrophils Percent Auto 53.7 % (45-73); Red Blood Count 5.04 X10*6/uL (4.20-5.50); Red Cell Distribution Width 17.7 % (11.0-16.0)
[2022-12-28 10:36] LABS: Platelet Count 30 X10*3/uL (160-400)
[2022-12-28 11:16] LABS: Ferritin 15 ng/mL (10-122)
== END 2022-12-28 08:41 | disposition home or self-care (01) ==
LOC: HO.LAB 08:40
PROVIDERS: PCP Internal Medicine Medical Oncology; Visit Provider Internal Medicine Medical Oncology
DX: D69.3 Immune thrombocytopenic purpura (principal); E61.1 Iron deficiency
CPT/HCPCS: 36415; 82728; 85025

== ENCOUNTER 2023-01-13 13:54 | Outpatient (REF) | payer OTHER, SELFPAY ==
[2023-01-13 15:24] LABS: Imm Gran Abs Auto 0.02 X10*3/uL (0.00-0.03); Imm Gran Pct Auto 0.4 % (0.0-0.4); Mean Corpuscular HGB Conc 31.2 g/dl (31.0-35.0); SCAN SMEAR FLAG 1
[2023-01-13 15:26] LABS: Basophils Absolute Auto 0.1 X10*3/uL (0.0-0.2); Basophils Percent Auto 0.9 % (0-2); Eosinophils Absolute Auto 0.2 X10*3/uL (0.0-0.4); Eosinophils Percent Auto 2.7 % (0-4); Hematocrit 35.6 % (37.0-47.0); Hemoglobin 11.1 g/dl (12.0-16.0); Lymphocytes Absolute Auto 1.6 X10*3/uL (1.2-4.9); Lymphocytes Percent Auto 28.6 % (20-40); Mean Corpuscular Hemoglobin 22.8 pg (27.0-33.0); Mean Corpuscular Volume 73.1 fL (80.0-98.0); Monocytes Absolute Auto 0.5 X10*3/uL (0.1-1.2); Monocytes Percent Auto 8.9 % (2-11); Neutrophils Absolute Auto 3.2 x10*3/uL (2.0-8.3); Neutrophils Percent Auto 58.5 % (45-73); Platelet Count 118 X10*3/uL (160-400); Red Blood Count 4.87 X10*6/uL (4.20-5.50); Red Cell Distribution Width 18.1 % (11.0-16.0); White Blood Count 5.5 X10*3/uL (4.8-10.8)
[2023-01-13 15:31] LABS: MANUAL DIFF FLAG NO; PLT ABN DIST 1
== END 2023-01-13 13:55 | disposition home or self-care (01) ==
LOC: HO.LAB 13:54
PROVIDERS: PCP Internal Medicine Medical Oncology; Visit Provider Internal Medicine Medical Oncology
DX: D50.9 Iron deficiency anemia, unspecified (principal); D69.3 Immune thrombocytopenic purpura
CPT/HCPCS: 36415; 85025

== ENCOUNTER 2023-05-26 11:23 | Outpatient (REF) | payer OTHER, SELFPAY ==
[2023-05-26 11:40] LABS: MANUAL DIFF FLAG NO
[2023-05-26 12:14] LABS: Basophils Percent Auto 0.8 % (0-2); Eosinophils Absolute Auto 0.1 X10*3/uL (0.0-0.4); Eosinophils Percent Auto 2.1 % (0-4); Hematocrit 34.4 % (37.0-47.0); Hemoglobin 10.8 g/dl (12.0-16.0); Imm Gran Abs Auto 0.02 X10*3/uL (0.00-0.03); Imm Gran Pct Auto 0.4 % (0.0-0.4); Lymphocytes Absolute Auto 1.5 X10*3/uL (1.2-4.9); Mean Corpuscular HGB Conc 31.4 g/dl (31.0-35.0); Mean Corpuscular Hemoglobin 22.6 pg (27.0-33.0); Monocytes Absolute Auto 0.7 X10*3/uL (0.1-1.2); Monocytes Percent Auto 12.9 % (2-11); Neutrophils Absolute Auto 2.9 x10*3/uL (2.0-8.3); Neutrophils Percent Auto 54.8 % (45-73); Red Blood Count 4.78 X10*6/uL (4.20-5.50); Red Cell Distribution Width 14.2 % (11.0-16.0); White Blood Count 5.2 X10*3/uL (4.8-10.8)
[2023-05-26 12:56] LABS: Platelet Count 42 X10*3/uL (160-400)
[2023-05-26 12:57] LABS: Platelet Count (Citrate) 34 X10*3/uL (150-310)
== END 2023-05-26 11:24 | disposition home or self-care (01) ==
LOC: HO.LAB 11:23
PROVIDERS: PCP Internal Medicine Medical Oncology; Visit Provider Internal Medicine Medical Oncology
DX: D69.3 Immune thrombocytopenic purpura (principal); D50.9 Iron deficiency anemia, unspecified
CPT/HCPCS: 36415; 85025

== ENCOUNTER 2023-09-13 20:49 | Emergency (ER) | payer OTHER, SELFPAY ==
[2023-09-13 22:25] VITALS: BP 109/81; PULSE 79; RESP 16; TEMP 36.4; O2SAT 100; BMI 36.6
--- NOTE | 2023-09-13 22:36 | ED_ITS ---
HPI - Ear Problem General Chief complaint: Ear Problems Stated complaint: LT ear pain Time Seen by Provider: 09/13/23 22:32 Source: patient Mode of arrival: ambulatory Limitations: no limitations History of Present Illness HPI Narrative: Patient is a 32 year old female who presents emergency department for evaluation of left ear pain. Onset of pain was 3 days ago progressively worsening. She has been taking ibuprofen with some improvement in pain. Endorses subjective swelling to the left preauricular region. She denies any change in hearing, drainage from the ear. Denies fevers or chills. Denies any head injury. Denies recent URI symptoms Related Data Home Medications ?Medication ?Instructions ?Recorded ?Confirmed prednisone 20 mg tablet 20 mg PO DAILY 06/29/21 06/29/21 Previous Rx's ?Medication ?Instructions ?Recorded vitamin with calcium 1 tab PO DAILY #30 tabs 02/19/21 no.72-iron 27 mg-folic acid 1 mg tablet ( Vitamins Plus Low Iron) doxylamine succinate 25 mg tablet 12.5 mg (1/2 x 25 mg) PO BEDTIME 06/19/21 (Unisom (doxylamine)) PRN sleep 30 days #15 tabs pyridoxine (vitamin B6) 25 mg 25 mg PO TID 30 days #90 tabs 06/19/21 tablet famotidine 20 mg tablet 20 mg PO BID PRN heartburn 2 weeks 07/30/21 #30 tabs morphine 15 mg immediate release 15 mg PO Q4-6H PRN pain #14 tabs 12/28/21 tablet ondansetron 4 mg disintegrating 4 mg PO Q6-8H PRN nausea and 12/28/21 tablet vomiting #14 tabs prednisone 20 mg tablet 40 mg (2 x 20 mg) PO DAILY 7 days 12/28/21 #14 tabs amoxicillin 875 mg-potassium 1 tab PO BID #19 tabs 09/13/23 clavulanate 125 mg tablet Allergies Allergy/AdvReac Type Severity Reaction Status Date / Time aspirin [ASPIRIN] Allergy Intermediate PT HAS H/O Verified 09/13/23 22:29 LOW PALTELETS Review of Systems Review of Systems: Yes all other systems are reviewed and are negative PMFSH Past Medical History Attestation statement: The following information was validated with the patient. Source: old records reviewed Medical History Miscarriage Migraine Chronic ITP (idiopathic thrombocytopenia) Family History Family History Father Migraine Mother Migraine Social History Social History Household Members: Children Housing: Apartment Alcohol intake: never Patient Tobacco Use Status: Former Tobacco user Smoked in Last 30 Days: No Use of substances other than those prescribed or required for medical reasons: No Special vivian needs: No Agree to transfusion: Yes Advance Directives: No Advance Directives Information Provided: No Patient : No Sexual orientation: Straight/Heterosexual Gender identity: Female Physical Exam Vital Signs: Vital Signs: Last Vital Signs Temp 97.6 F 09/13/23 22:56 Pulse 79 09/13/23 22:56 Resp 16 09/13/23 22:56 BP 109/81 09/13/23 22:56 Pulse Ox 100 09/13/23 22:56 O2 Del Method Room Air 09/13/23 22:56 BMI result Body Mass Index 36.6 Appearance: Alert.?Oriented to person, place and time. No acute distress.?Normal affect. Eyes: Pupils equal, round and reactive to light.? ENT: Pharynx normal.??Left TM is bulging with erythema and opacity. Right TM normal. No mastoid tenderness upon palpation. Neck: Normal inspection.? Neck supple.??No cervical adenopathy CVS: Heart sounds normal. Normal heart rate and rhythm.? Pulses normal.?? Respiratory: No respiratory distress.? Lung sounds clear to auscultation bilaterally?? Abdomen: Soft and non-tender. Normoactive bowel sounds. ?? Skin: Skin warm and dry.? Normal skin color.? Neuro: Moves all extremities spontaneously. Ambulates with normal steady gait. Medications Administered Discontinued Medications Generic Name Dose Route Start Last Admin Trade Name Freq PRN Reason Stop Dose Admin Amoxicillin/Clavulanate Potassium 875 mg 09/13/23 22:32 09/13/23 22:38 Amoxicillin/Potassium Clav 875 Mg Tablet PO 09/13/23 22:33 875 mg ONCE ONE Administration Medical Decision Making Medical Decision Making MDM Narrative: Patient is a 32-year-old female who presents emergency department for evaluation of left ear pain as per HPI, on physical examination does have acute otitis media. History and physical examination is not consistent with mastoiditis, otitis externa, rupture of the TM. Overall she is well-appearing, nontoxic, afebrile. Received initial dose of antibiotics while in the emergency department and discharged home with remainder prescription sent to pharmacy. Discussed worrisome signs and symptoms that would warrant re-evaluation in the emergency department. All questions answered. Stable for discharge Differential Diagnosis Differential Diagnoses: The differential diagnosis associated with the presentation includes (See narrative above) External Record Review External record reviewed: Outpatient record Tests considered The following testing was considered but not selected: No mastoid tenderness to suggest need for CT to rule out mastoiditis Prescription Management I considered prescription management with: Antibiotic Discharge Plan Discharge Clinical Impression: Acute otitis media Patient Disposition: Home, Self-Care Instructions: Ear Infection (ED) Additional Instructions: Complete the entire course of antibiotics as prescribed. As discussed do not insert anything into the ear canal such as Q-tips. This can increase the risk of rupture to your ear drum. Avoid submerging the head under water for any reason no swimming, scuba diving etc. You can take ibuprofen 200 mg, 3 tablets (600mg) every 6-8 hours as needed for pain, in addition to Tylenol 500 mg, 2 tablets (1,000mg) every 4-6 hours as needed for pain, but not to exceed 3 doses daily (3,000mg).? Contact your primary care provider to arrange for a follow-up visit. Prescriptions: New amoxicillin-pot clavulanate 875-125 mg tablet 1 tab PO BID Qty: 19 0RF No Action pyridoxine (vitamin B6) 25 mg tablet 25 mg PO TID 30 Days Qty: 90 1RF Unisom (doxylamine) 25 mg tablet 12.5 mg PO BEDTIME PRN (Reason: sleep) 30 Days Qty: 15 0RF Rx Instructions: Take 1/2 tablet at bedtime prednisone 20 mg tablet 40 mg PO DAILY 7 Days Qty: 14 0RF morphine 15 mg tablet 15 mg PO Q4-6H PRN (Reason: pain) Qty: 14 0RF Rx Instructions: Patient may request partial fill; Partial Fill upon patient request. ondansetron 4 mg tablet,disintegrating 4 mg PO Q6-8H PRN (Reason: nausea and vomiting) Qty: 14 0RF Vitamin Plus Low Iron 27 mg iron- 1 mg tablet 1 tab PO DAILY Qty: 30 11RF prednisone 20 mg tablet 20 mg PO DAILY famotidine 20 mg tablet 20 mg PO BID PRN (Reason: heartburn) 14 Days Qty: 30 0RF Referrals: Physician,Unknown J [Physician] - Interventions: ED Discharge Assessment Last Done: 09/13/23 22:56 Discharge Date/Time: 09/13/23 22:57 Print Language: Romanian
[2023-09-13] MEDS: Amoxicillin/Potassium Clav 875 MG TABLET PO (22:38)
[2023-09-13 22:56] VITALS: BP 109/81; PULSE 79; RESP 16; TEMP 36.4; O2SAT 100
== END 2023-09-13 22:57 | disposition home or self-care (01) ==
PROVIDERS: Emergency Provider Emergency Medicine Emergency Medical Services; PCP Internal Medicine Medical Oncology
DX: H66.92 Otitis media, unspecified, left ear (principal); H92.02 Otalgia, left ear; D69.3 Immune thrombocytopenic purpura
CPT/HCPCS: 99283; 99284

== ENCOUNTER 2023-12-12 12:16 | Emergency (ER) | payer OTHER, SELFPAY ==
--- NOTE | ~2023-12-12 | CT_ITS ---
EXAMINATION: CT ABDOMEN AND PELVIS WITHOUT CONTRAST CLINICAL INFORMATION: Left flank pain, urinary symptoms COMPARISON: 12/28/2021 TECHNIQUE: Multidetector volumetric imaging was performed from the superior aspect of the liver through the pubic symphysis. Sagittal and coronal reformatted images were obtained on the technologist's workstation. This CT examination was performed using dose optimization techniques as appropriate, variously including the following: *Automated exposure control *Adjustment of mA and/or kV according to patient size (this includes techniques or standardized protocols for targeted exams where dose is matched to indication/reason for exam; i.e. extremities or head) *Use of iterative reconstruction technique DLP: 825 mGy-cm FINDINGS: LUNG BASES: The visualized lung bases are unremarkable. LIVER, GALLBLADDER, AND BILIARY TREE: The liver is normal in size, shape, and attenuation. No focal hepatic lesion or biliary ductal dilatation is present. The gallbladder is unremarkable with no evidence of radiopaque gallstones, gallbladder wall thickening, or obvious pericholecystic inflammatory changes. PANCREAS: Unremarkable. SPLEEN: Unremarkable. ADRENAL GLANDS: Unremarkable. KIDNEYS AND URETERS: No hydronephrosis. No renal or ureteral calculi visualized. The left kidney is malrotated, similar prior exams. BLADDER: No bladder calculi. No bladder wall thickening. GASTROINTESTINAL TRACT: No inflammatory changes in the bowel. No bowel obstruction. ABDOMINAL WALL: No significant hernia is appreciated. LYMPH NODES: Normal. VASCULAR: Unremarkable. PELVIC VISCERA: Unremarkable. OSSEOUS STRUCTURES: Unremarkable. CT/CT abdomen pelvis wo IV con IMPRESSION: 1. No hydronephrosis or renal or ureteral calculi. 2. Malrotated left kidney, similar to prior exams. Fleischner guidelines were followed.
[2023-12-12 12:40] VITALS: BP 123/84; PULSE 106; RESP 18; TEMP 36.6; O2SAT 100; BMI 39.4
[2023-12-12 13:04] LABS: MANUAL DIFF FLAG NO
[2023-12-12 13:10] LABS: Basophils Percent Auto 0.6 % (0-2); Eosinophils Absolute Auto 0.1 X10*3/uL (0.0-0.4); Hemoglobin 11.7 g/dl (12.0-16.0); Imm Gran Abs Auto 0.04 X10*3/uL (0.00-0.03); Imm Gran Pct Auto 0.6 % (0.0-0.4); Lymphocytes Absolute Auto 1.5 X10*3/uL (1.2-4.9); Lymphocytes Percent Auto 21.4 % (20-40); Mean Corpuscular HGB Conc 32.5 g/dl (31.0-35.0); Mean Corpuscular Hemoglobin 23.4 pg (27.0-33.0); Monocytes Absolute Auto 0.6 X10*3/uL (0.1-1.2); Monocytes Percent Auto 8.3 % (2-11); Neutrophils Absolute Auto 4.8 x10*3/uL (2.0-8.3); Neutrophils Percent Auto 67.1 % (45-73); Red Cell Distribution Width 14.9 % (11.0-16.0); White Blood Count 7.1 X10*3/uL (4.8-10.8)
[2023-12-12 13:11] LABS: Platelet Count 35 X10*3/uL (160-400)
[2023-12-12 13:26] LABS: Alanine Aminotransferase 20 U/L (0-31); Alkaline Phosphatase 120 U/L (39-117); Anion Gap 13 (12-20); Aspartate Amino Transferase 19 U/L (5-31); Bilirubin Direct 0.2 mg/dL (0.0-0.5); Bilirubin Total 0.4 mg/dL (0.0-1.0); Blood Urea Nitrogen 11 mg/dL (9-16); Calcium 9.1 mg/dL (8.4-10.2); Carbon Dioxide 22 mmol/L (22-29); Chloride 106 mmol/L (96-108); Estimated Glomerular Filt Rate > 60; Glucose Random 105 mg/dL (60-115); Lipase 18 U/L (8-78); Potassium 3.7 mmol/L (3.3-5.1); Sodium 137 mmol/L (135-145); Total Protein 7.7 g/dL (6.5-8.0)
[2023-12-12 13:45] LABS: Appearance Urine Turbid; Color Urine Yellow; Glucose Urine UA Negative (Negative); Leukocyte Esterase Urine Large (3+) (Negative); Nitrite Urine Negative (Negative); PH 6.5 (5.0-9.0); UMIC TRIGGER UACC YES; Urine Blood Large (3+) (Negative); Urine Ketones Negative (Negative); Urine Protein 300 (3+) mg/dL (Neg-Trace)
[2023-12-12 13:46] LABS: UPreg QC Valid YES; Urine Pregnancy NEGATIVE (NEGATIVE)
[2023-12-12 14:28] LABS: Bacteria Urine 4+ (None Seen); Hyaline Casts Urine 0-2 /LPF (0-2); RBC Urine >20 /HPF (0-2); UACC Culture Trigger YES; WBC Urine >50 /HPF (0-5)
[2023-12-12 16:08] VITALS: BP 108/66; PULSE 88; RESP 20; TEMP 37.1; O2SAT 99
--- NOTE | 2023-12-12 16:43 | ED_ITS ---
HPI - Female Genitourinary General Chief complaint: Urogenital-Female Stated complaint: LLQ PAIN Time Seen by Provider: 12/12/23 16:41 Source: patient and RN notes reviewed Mode of arrival: ambulatory Limitations: no limitations History of Present Illness ED Provider: Comfort Osuna PA-C HPI Narrative: This is a 33-year-old female, with no known medical problems, who presents emergency department with complaints of left lower abdominal pain, urinary frequency and urgency. She states that her symptoms started yesterday however states that this morning she awoke with worsening left-sided abdominal pain. She denies dysuria or hematuria. No abnormal vaginal discharge or bleeding. Denies any fevers, chills, vomiting or diarrhea. No other complaints or concerns at this time. MD elicited complaint: UTI Vaginal discharge: none Vaginal bleeding: none Relieving factors: none Associated symptoms: abdominal pain and nausea Treatment prior to arrival: none Sexual activity: Yes Patient : No Related Data Home Medications ?Medication ?Instructions ?Recorded ?Confirmed prednisone 20 mg tablet 20 mg PO DAILY 06/29/21 06/29/21 Previous Rx's ?Medication ?Instructions ?Recorded vitamin with calcium 1 tab PO DAILY #30 tabs 02/19/21 no.72-iron 27 mg-folic acid 1 mg tablet ( Vitamins Plus Low Iron) doxylamine succinate 25 mg tablet 12.5 mg (1/2 x 25 mg) PO BEDTIME 06/19/21 (Unisom (doxylamine)) PRN sleep 30 days #15 tabs pyridoxine (vitamin B6) 25 mg 25 mg PO TID 30 days #90 tabs 06/19/21 tablet famotidine 20 mg tablet 20 mg PO BID PRN heartburn 2 weeks 07/30/21 #30 tabs morphine 15 mg immediate release 15 mg PO Q4-6H PRN pain #14 tabs 12/28/21 tablet ondansetron 4 mg disintegrating 4 mg PO Q6-8H PRN nausea and 12/28/21 tablet vomiting #14 tabs prednisone 20 mg tablet 40 mg (2 x 20 mg) PO DAILY 7 days 12/28/21 #14 tabs amoxicillin 875 mg-potassium 1 tab PO BID #19 tabs 09/13/23 clavulanate 125 mg tablet cefuroxime axetil 500 mg tablet 500 mg PO BID 7 days #14 tabs 12/12/23 phenazopyridine 100 mg tablet 100 mg PO TID 5 doses #5 tabs 12/12/23 (Pyridium) Allergies Allergy/AdvReac Type Severity Reaction Status Date / Time aspirin [ASPIRIN] Allergy Intermediate PT HAS H/O Verified 12/12/23 12:44 LOW PALTELETS Review of Systems 2 Review of Systems: Yes all other systems are reviewed and are negative Constitutional: Constitutional: Reports as per [facility] Past Medical History Medical History Miscarriage Migraine Chronic ITP (idiopathic thrombocytopenia) Family History Family History Father Migraine Mother Migraine Social History Social History Household Members: Children Housing: Apartment Alcohol intake: never Patient Tobacco Use Status: Former Tobacco user Special vivian needs: No Agree to transfusion: Yes Advance Directives: No Advance Directives Information Provided: No Do you have a plan to hurt others: No Plan Patient : No Sexual orientation: Straight/Heterosexual Gender identity: Female Physical Exam 2 Vital Signs: Vital Signs: Last Vital Signs Temp 98.8 F 12/12/23 16:08 Pulse 88 12/12/23 16:08 Resp 20 12/12/23 16:08 BP 108/66 12/12/23 16:08 Pulse Ox 99 12/12/23 16:08 O2 Del Method Room Air 12/12/23 16:08 BMI result Body Mass Index 39.4 Const: General: cooperative, comfortable and no acute distress O rientation/consciousness: patient oriented x3 Limitations: no limitations HEENT: Head: Yes normal to inspection, Yes normocephalic and Yes atraumatic Ears: hearing grossly normal bilaterally General nose exam: Normal external nose present Face and sinus: Yes normal facial exam Mouth: Normal oral and palatal mucosa present, oropharynx normal and moist mucous membranes Throat: Yes posterior oropharynx normal Eyes: General: appearance normal, both eyes and all related structures E yelids: Yes eyelids normal Conjunctivae: conjunctivae normal Sclerae: s clerae normal Pupils: Equal, round and reactive pupils present EOM: EOMs intact bilaterally Neck: Neck: Yes normal visual inspection, Yes full ROM and Yes no lymphadenopathy Lymphatic: no lymphadenopathy noted Chest: Chest palpation & inspection: normal inspection of the chest Resp: Effort & Inspection: normal respiratory effort and able to speak in complete sentences Auscultation: clear to auscultation bilaterally, no crackles, no rales, no rhonchi and no wheezes Cardio: Rate: regular rate Rhythm: regular rhythm Heart sounds: S1 normal heart sound present and S2 normal heart sound present GI: Other: Abdomen is soft, with tenderness palpation in the left flank. Abdomen is otherwise nontender, no rebound or guarding. No suprapubic tenderness on examination. Inspection: Yes normal to inspection Skin: General skin exam: no rashes or lesions noted Trauma: no lacerations or abrasions Wounds: no wounds Neuro: General: patient oriented x3 and moves all extremities Cranial nerves: Yes Equal, round and reactive pupils present Extrem: General: Yes normal to inspection Right upper extremity: normal to inspection Left upper extremity: normal to inspection Right lower extremity: normal to inspection Left lower extremity: normal to inspection Course Reevaluation(s) Reevaluation #1: CT abdomen and pelvis does not show any abnormalities. 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 Her symptoms are consistent with UTI. Will treat with 7 day course of cefuroxime. Discussed return precautions. She understands and agrees with plan. Patient stable for discharge. Time: 19:16 Medical Decision Making Medical Decision Making [facility] Narrative: This is a 33-year-old female who presents emergency department with complaints of left lower quadrant pain, urinary frequency and urgency since yesterday. On arrival, patient nontoxic appearing, vital signs within normal limits. She has tenderness palpation in the left flank. No CVA tenderness. She has had urinary symptoms, however no dysuria or hematuria. Before my assessment, labs, and urinalysis was ordered. She has no leukocytosis, H&H revealing microcytic anemia, which is around her baseline, urine appears to be grossly infected, with large blood, large leuk esterases, bacteria,. She has not . Given no suprapubic tenderness, but with left flank pain, concerning for infected stone. Plan: Labs, UA, CT abdomen and pelvis Differential Diagnosis Differential Diagnoses: The differential diagnosis associated with the presentation includes Acute cystitis, obstructive uropathy, pyelonephritis Admission/Observation Consideration of admission/observation: Escalation of care including admission/observation considered Lab Data [facility] Lab Attestation statement: I reviewed the patient's lab results. No leukocytosis, H&H revealing microcytic anemia, typical, and at her baseline. She does have a slight elevation in her alk phos which she has a history of. No epigastric tenderness. Urine 12/12/23 12:57 12/12/23 12:57 Labs: Lab Results 12/12/23 12/12/23 Range/Units 12:57 13:27 WBC 7.1 (4.8-10.8) X10*3/uL RBC 5.00 (4.20-5.50) X10*6/uL Hgb 11.7 L (12.0-16.0) g/dl Hct 36.0 L (37.0-47.0) % MCV 72.0 L (80.0-98.0) fL MCH 23.4 L (27.0-33.0) pg MCHC 32.5 (31.0-35.0) g/dl RDW 14.9 (11.0-16.0) % Plt Count 35 L (160-400) X10*3/uL MPV Not Reportable Immature Gran % (Auto) 0.6 H (0.0-0.4) % Neut % (Auto) 67.1 (45-73) % Lymph % (Auto) 21.4 (20-40) % Wright % (Auto) 8.3 (2-11) % Eos % (Auto) 2.0 (0-4) % Baso % (Auto) 0.6 (0-2) % Lymph # (Auto) 1.5 (1.2-4.9) X10*3/uL Wright # (Auto) 0.6 (0.1-1.2) X10*3/uL Eos # (Auto) 0.1 (0.0-0.4) X10*3/uL Baso # (Auto) 0.0 (0.0-0.2) X10*3/uL Abs Immat Gran (auto) 0.04 H (0.00-0.03) X10*3/uL Absolute Neuts (auto) 4.8 (2.0-8.3) x10*3/uL Absolute Nucleated RBC 0.000 (0.0-0.012) X10*3/uL Nucleated RBC % (auto) 0.0 (0.0-0.2) /100WBC Sodium 137 (135-145) mmol/L Potassium 3.7 (3.3-5.1) mmol/L Chloride 106 (96-108) mmol/L Carbon Dioxide 22 (22-29) mmol/L Anion Gap 13 (12-20) BUN 11 (9-16) mg/dL Creatinine 0.67 (0.5-1.4) mg/dL Estim Creat Clear Calc 123.0 Estimated GFR > 60 Random Glucose 105 (60-115) mg/dL Calcium 9.1 (8.4-10.2) mg/dL Total Bilirubin 0.4 (0.0-1.0) mg/dL Direct Bilirubin 0.2 (0.0-0.5) mg/dL AST 19 (5-31) U/L ALT 20 (0-31) U/L Alkaline Phosphatase 120 H (39-117) U/L Total Protein 7.7 (6.5-8.0) g/dL Albumin 4.0 (3.5-5.0) g/dL Lipase 18 (8-78) U/L Urine Color Yellow Urine Appearance Turbid Urine pH 6.5 (5.0-9.0) Ur Specific [place] 1.020 (1.005-1.025) Urine Protein 300 (3+) H (Neg-Trace) mg/dL Urine Glucose (UA) Negative (Negative) mg/dL Urine Ketones Negative (Negative) mg/dL Urine Blood Large (3+) H (Negative) Urine Nitrite Negative (Negative) Ur Leukocyte Esterase Large (3+) H (Negative) Urine RBC >20 H (0-2) /HPF Urine WBC >50 H (0-5) /HPF Ur Squamous Epith Cells 11-20 (0-2) /HPF Urine Bacteria 4+ (None Seen) Hyaline Casts 0-2 (0-2) /LPF Urine Test NEGATIVE (NEGATIVE) Radiology Impression Discussion of test interpretation with radiology: I have reviewed the radiologist's reading. Radiologist Impression: CT/CT abdomen pelvis wo IV con IMPRESSION: 1. No hydronephrosis or renal or ureteral calculi. 2. Malrotated left kidney, similar to prior exams. Fleischner guidelines were followed. Dictated By: Quincy Paula MD Discharge Plan Discharge Clinical Impression: UTI (urinary tract infection) Patient Disposition: Home, Self-Care Instructions: Urinary Tract Infection in Women (ED) Additional Instructions: You were seen in the emergency department due to urinary symptoms and abdominal pain. You have a urinary tract infection. We gave you your 1st dose of the antibiotic in the department today. We also gave you a medication to help with the pain you are having, please be advised that this can cause your urine to be bright orange. Drink plenty of fluids get plenty of rest. We are sending a urine out for further testing, we will call you if we need to switch the antibiotic. If any new or worsening symptoms occur including but not limited to fevers, chills, worsening pain, please return for re-evaluation. Prescriptions: New cefuroxime axetil 500 mg tablet 500 mg PO BID 7 Days Qty: 14 0RF phenazopyridine [Pyridium] 100 mg tablet 100 mg PO TID Qty: 5 0RF No Action pyridoxine (vitamin B6) 25 mg tablet 25 mg PO TID 30 Days Qty: 90 1RF Unisom (doxylamine) 25 mg tablet 12.5 mg PO BEDTIME PRN (Reason: sleep) 30 Days Qty: 15 0RF Rx Instructions: Take 1/2 tablet at bedtime prednisone 20 mg tablet 40 mg PO DAILY 7 Days Qty: 14 0RF morphine 15 mg tablet 15 mg PO Q4-6H PRN (Reason: pain) Qty: 14 0RF Rx Instructions: Patient may request partial fill; Partial Fill upon patient request. ondansetron 4 mg tablet,disintegrating 4 mg PO Q6-8H PRN (Reason: nausea and vomiting) Qty: 14 0RF amoxicillin-pot clavulanate 875-125 mg tablet 1 tab PO BID Qty: 19 0RF Vitamin Plus Low Iron 27 mg iron- 1 mg tablet 1 tab PO DAILY Qty: 30 11RF prednisone 20 mg tablet 20 mg PO DAILY famotidine 20 mg tablet 20 mg PO BID PRN (Reason: heartburn) 14 Days Qty: 30 0RF Print Language: Vincentian
[2023-12-12 19:18] VITALS: BP 118/82; PULSE 72; RESP 16; TEMP 36.5; O2SAT 98
[2023-12-12] MEDS: cefuroxime axetiL 500 MG TABLET PO (19:27)
[2023-12-12] MEDS: Phenazopyridine HCL 100 MG TABLET PO (19:27)
[2023-12-12 19:38] VITALS: BP 118/82; PULSE 72; RESP 16; TEMP 36.5; O2SAT 98
== END 2023-12-12 19:39 | disposition home or self-care (01) ==
PROVIDERS: Emergency Provider Emergency Medicine; PCP Internal Medicine Medical Oncology
DX: N39.0 Urinary tract infection, site not specified (principal); R10.32 Left lower quadrant pain; R11.2 Nausea with vomiting, unspecified; Z79.899 Other long term (current) drug therapy; Z87.891 Personal history of nicotine dependence
CPT/HCPCS: 36415; 74176; 80053; 81001; 81003; 81025; 82248; 83690; 85025; 87086; 87088; 87186; 99283; 99284

== ENCOUNTER 2023-12-26 15:42 | Emergency (ER) | payer OTHER, SELFPAY ==
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
[2023-12-26 16:43] VITALS: BP 134/90; PULSE 89; RESP 17; TEMP 36.6; O2SAT 100; BMI 39.9
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
[2023-12-26] MEDS: Ondansetron ODT 4 MG TAB.RAPDIS TRANSLINGU (18:21)
[2023-12-26] MEDS: Acetaminophen 325 MG TABLET 975 MG PO (18:21)
[2023-12-26 18:22] LABS: UPreg QC Valid YES; Urine Pregnancy NEGATIVE (NEGATIVE)
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
[2023-12-26 20:36] VITALS: BP 134/90; PULSE 89; RESP 17; TEMP 36.6; O2SAT 100
== END 2023-12-26 20:36 | disposition home or self-care (01) ==
PROVIDERS: Physician Assistant Medical; Emergency Provider Emergency Medicine; PCP Internal Medicine Medical Oncology
DX: S13.4XXA Sprain of ligaments of cervical spine, initial encounter (principal); M54.2 Cervicalgia; R11.2 Nausea with vomiting, unspecified; G43.909 Migraine, unspecified, not intractable, without status migrainosus; M25.562 Pain in left knee; V43.52XA Car driver injured in collision with other type car in traffic accident, initial encounter; Y93.89 Activity, other specified; Y92.488 Other paved roadways as the place of occurrence of the external cause; Y99.8 Other external cause status
CPT/HCPCS: 70450; 72125; 73562; 81025; 99283; 99284

== ENCOUNTER 2024-02-28 16:08 | Outpatient (REF) | payer MEDICAID, SELFPAY ==
[2024-02-28 17:34] LABS: Hemoglobin 10.8 g/dl (12.0-16.0); Red Cell Distribution Width 15.3 % (11.0-16.0); SCAN SMEAR FLAG 1
[2024-02-28 17:36] LABS: Basophils Absolute Auto 0.1 X10*3/uL (0.0-0.2); Basophils Percent Auto 0.8 % (0-2); Eosinophils Absolute Auto 0.2 X10*3/uL (0.0-0.4); Eosinophils Percent Auto 3.3 % (0-4); Hematocrit 33.5 % (37.0-47.0); Imm Gran Abs Auto 0.03 X10*3/uL (0.00-0.03); Imm Gran Pct Auto 0.5 % (0.0-0.4); Lymphocytes Absolute Auto 1.8 X10*3/uL (1.2-4.9); Lymphocytes Percent Auto 29.9 % (20-40); MANUAL DIFF FLAG SCAN; Mean Corpuscular HGB Conc 32.2 g/dl (31.0-35.0); Mean Corpuscular Hemoglobin 23.1 pg (27.0-33.0); Mean Corpuscular Volume 71.6 fL (80.0-98.0); Monocytes Absolute Auto 0.7 X10*3/uL (0.1-1.2); Monocytes Percent Auto 11.1 % (2-11); Neutrophils Absolute Auto 3.3 x10*3/uL (2.0-8.3); Neutrophils Percent Auto 54.4 % (45-73); Red Blood Count 4.68 X10*6/uL (4.20-5.50); White Blood Count 6.1 X10*3/uL (4.8-10.8)
[2024-02-28 17:40] LABS: Platelet Count 37 X10*3/uL (160-400)
[2024-02-28 17:43] LABS: PLT ABN DIST 1
[2024-02-28 18:04] LABS: SLIDE REVIEW VERIFIED
[2024-02-28 19:08] LABS: Platelet Count (Citrate) 24 X10*3/uL (150-310)
== END 2024-02-28 16:09 | disposition home or self-care (01) ==
LOC: HO.LAB 16:08
PROVIDERS: PCP Internal Medicine Medical Oncology; Visit Provider Internal Medicine Medical Oncology
DX: D69.3 Immune thrombocytopenic purpura (principal); D50.9 Iron deficiency anemia, unspecified
CPT/HCPCS: 36415; 85025

== ENCOUNTER 2024-03-15 12:33 | Emergency (ER) | payer OTHER, SELFPAY ==
--- NOTE | ~2024-03-15 | XR_ITS ---
EXAMINATION: XR LUMBOSACRAL SPINE CLINICAL INFORMATION: Pain radiating to right leg. COMPARISON: None available. TECHNIQUE: Three views of the lumbosacral spine. FINDINGS: There are 5 nonrib-bearing lumbar vertebrae. Spinal alignment is anatomic in the sagittal projection. Vertebral body heights are preserved. There is mild narrowing of the L5-S1 intervertebral disc space. Intervertebral disc space heights are otherwise preserved. No acute fracture. Paraspinal soft tissue is normal in appearance. XR/XR lumbar spine 2-3V IMPRESSION: Mild degenerative disc disease at L5-S1. No acute osseous abnormality. Electronically signed by: Sina Gooden DO 03/15/2024 03:34 PM EDT
[2024-03-15 12:50] VITALS: BP 127/75; PULSE 88; RESP 20; TEMP 36.6; O2SAT 100; BMI 39.7
--- NOTE | 2024-03-15 12:51 | ED_ITS ---
HPI - General Adult General Chief complaint: Back Pain/Injury Stated complaint: back pain Time Seen by Provider: 03/15/24 13:39 Source: patient Mode of arrival: ambulatory Limitations: no limitations History of Present Illness ED Provider: NACHO BARRIENTOS PA-C HPI narrative: 33 year old female with pmhx significant for migraines, chronic ITP presents to the ED today for evaluation of atraumatic lower back pain x 5 days. Patient reports that while walking to her car she felt a twinge in her right lower back that brought her to the ground. Reports feeling the area begin spasming. Pain intermittently radiating down right lower extremity. Pain is worse with movement of the back. Denies blunt injury or trauma. No falls. Trialing Motrin and warm compresses at home without relief. Denies IVDU. Denies hx of spinal surgery. Denies fever, chills, numbness/tingling/weakness of the RLE, saddle anesthesia, bowel or bladder incontinence or retention, dysuria, hematuria. Related Data Home Medications ?Medication ?Instructions ?Recorded ?Confirmed prednisone 20 mg tablet 20 mg PO DAILY 06/29/21 06/29/21 Previous Rx's ?Medication ?Instructions ?Recorded vitamin with calcium 1 tab PO DAILY #30 tabs 02/19/21 no.72-iron 27 mg-folic acid 1 mg tablet ( Vitamins Plus Low Iron) doxylamine succinate 25 mg tablet 12.5 mg (1/2 x 25 mg) PO BEDTIME 06/19/21 (Unisom (doxylamine)) PRN sleep 30 days #15 tabs pyridoxine (vitamin B6) 25 mg 25 mg PO TID 30 days #90 tabs 06/19/21 tablet famotidine 20 mg tablet 20 mg PO BID PRN heartburn 2 weeks 07/30/21 #30 tabs morphine 15 mg immediate release 15 mg PO Q4-6H PRN pain #14 tabs 12/28/21 tablet ondansetron 4 mg disintegrating 4 mg PO Q6-8H PRN nausea and 12/28/21 tablet vomiting #14 tabs prednisone 20 mg tablet 40 mg (2 x 20 mg) PO DAILY 7 days 12/28/21 #14 tabs amoxicillin 875 mg-potassium 1 tab PO BID #19 tabs 09/13/23 clavulanate 125 mg tablet cefuroxime axetil 500 mg tablet 500 mg PO BID 7 days #14 tabs 12/12/23 phenazopyridine 100 mg tablet 100 mg PO TID 5 doses #5 tabs 12/12/23 (Pyridium) acetaminophen 650 mg 650 mg PO Q12H PRN pain #30 tabs 12/26/23 tablet,extended release (Tylenol 8 Hour) cyclobenzaprine 10 mg tablet 10 mg PO TID #12 tabs 12/26/23 ondansetron 4 mg disintegrating 4 mg PO Q8H PRN nausea and 12/26/23 tablet vomiting #6 tabs cyclobenzaprine 5 mg tablet 5 mg PO Q8H PRN muscle spasm #7 03/15/24 tabs lidocaine 5 % topical patch 1 patch topical DAILY #15 ea 03/15/24 (Lidoderm) Allergies Allergy/AdvReac Type Severity Reaction Status Date / Time aspirin [ASPIRIN] Allergy Intermediate PT HAS H/O Verified 03/15/24 12:53 LOW PALTELETS Review of Systems Review of Systems: Constitutional: No fever, chills, fatigue, night sweats, weight changes ENT/Mouth: No ear pain, hearing loss, nasal congestion, sinus pain, rhinorrhea, sore throat Eyes: No eye pain, swelling, redness, vision changes, discharge Cardio: No chest pain, palpitations, GENTILE, orthopnea, peripheral edema Pulm: No SOB, cough, sputum, wheezing, dyspnea, hemoptysis GI: No nausea, vomiting, hematemesis, abdominal pain, diarrhea, constipation, hematochezia, melena : No irregular bleeding, dysuria, frequency, urgency, hesitancy, hematuria, flank pain, urinary flow changes, urinary incontinence or retention MSK: +back pain, No neck pain, joint pain, myalgias Skin: No lesions, rashes Neuro: No weakness, numbness, paresthesias, LOC, dizziness, headache All other systems reviewed and are negative. [facility] Past Medical History Attestation statement: The following information was validated with the patient. Source: old records reviewed and nursing notes reviewed Medical History Miscarriage Migraine Chronic ITP (idiopathic thrombocytopenia) Family History Family History Father Migraine Mother Migraine Social History Social History Household Members: Children Housing: Apartment Alcohol intake: never Patient Tobacco Use Status: Former Tobacco user Special vivian needs: No Agree to transfusion: Yes Advance Directives: No Advance Directives Information Provided: Yes Sexual orientation: Straight/Heterosexual Gender identity: Female Physical Exam ED Vital Signs: Vital Signs - 24 hr 03/15/24 12:50 03/15/24 14:03 Temperature 97.9 F Pulse Rate 88 85 Respiratory Rate 20 17 Blood Pressure 127/75 116/72 Pulse Oximetry 100 100 Oxygen Delivery Method Room Air Room Air BMI result Body Mass Index 39.7 vital signs stable, afebrile General: Well appearing, in no acute distress. Skin: Warm, dry, intact. No rashes or lesions. Head: Normocephalic, atraumatic. EENT: Hearing is intact b/l. Conjunctiva clear. PERRLA. Moist mucous membranes.? Neck: Supple without LAD. FROM. Trachea midline.? Cardiac: Chest wall symmetric. RRR.. Lungs: Normal respiratory effort without accessory muscle use. CTA bilaterally. Back: No midline spinous or step off deformity. +ttp over right lumbar paraspinal mms with palpable spasm. no mass/ fluctuance. Ext: Upper and lower extremities atraumatic, without tenderness, deformity, swelling or erythema. Full ROM throughout. Pulses 2+ equal and bilateral. Neuro: AOx3. Normal speech. Strength 5/5 intact throughout. No saddle anesthesia. Sensation intact to light touch. NV intact distally. Ambulating with steady gait. Psych: Appropriate mood and affect. Responds appropriately to questions. Course Course Course Narrative: This is a rapid medical exam performed by Marco Mann NP: Additional HPI, ROS, PE not included below will be deferred to primary provider. Patient is a 33-year-old female presenting to ED with complaint of lower back pain radiating to right leg since Tuesday. Taking ibuprofen, using warm compresses without relief. Denies falls. Plan: lumbar xray Reevaluation(s) Reevaluation #1: 9521 -- x-ray lumbar spine showing mild degenerative disc disease at L5/S1. No osseous abnormality. Physical exam consistent with muscle spasm. Patient treated with Tylenol and lidocaine patch in the ED today. She is driving herself home and was unable to find a ride so I did not administer muscle relaxer in the ED. However I will send her home with Flexeril and lidocaine patch. He is agreeable with this. Patient has remained stable throughout ED visit today. Discussed worrisome signs and symptoms and when to return to the ED. All questions answered at this time. Patient is agreeable with disposition and stable for discharge. Medications Administered Discontinued Medications Generic Name Dose Route Start Last Admin Trade Name Robert PRN Reason Stop Dose Admin Acetaminophen 975 mg 03/15/24 14:08 03/15/24 15:24 Acetaminophen 325 Mg Tablet PO 03/15/24 14:09 975 mg ONCE ONE Administration Lidocaine 1 patch 03/15/24 14:06 03/15/24 15:25 Lidocaine 4 % Patch Adh..Patch TRANSDERMA 03/15/24 14:07 1 patch ONCE ONE Administration Protocol Medical Decision Making Medical Decision Making MDM Narrative: 33 year old female with pmhx significant for migraines, chronic ITP presents to the ED today for evaluation of atraumatic lower back pain x 5 days. Vital signs stable. afebrile. she is nontoxic appearing and in NAD. lying comfortably on exam bed. No midline spinous or step off deformity. +ttp over right lumbar paraspinal mms with palpable spasm. no mass/ fluctuance. nv intact distally. sensation intact to light touch throughout. ambulating with steady gait. no CVAT. Differential diagnosis includes msk sprain/ strain, muscle spasm, sciatica. Lower suspicion for fracture, subluxation, disc herniation. Unlikely cord compression, cauda equina, Guillain-[place], epidural abscess. Unlikely UTI, pyelo, hydronephrosis, renal colic. Plan for imaging, pain control, and re-evaluation. Differential Diagnosis Differential Diagnoses: The differential diagnosis associated with the presentation includes as above Admission/Observation Not indicated. Independent Interpretation I performed an independent interpretation of an: Plain X-Ray Interpretation: XR lumbar spine without fracture or subluxation, agree with radiologist's interpretation. Radiology Impression Discussion of test interpretation with radiology: I have reviewed the radiologist's reading. Radiologist Impression: EXAMINATION: XR LUMBOSACRAL SPINE CLINICAL INFORMATION: Pain radiating to right leg. COMPARISON: None available. TECHNIQUE: Three views of the lumbosacral spine. FINDINGS: There are 5 nonrib-bearing lumbar vertebrae. Spinal alignment is anatomic in the sagittal projection. Vertebral body heights are preserved. There is mild narrowing of the L5-S1 intervertebral disc space. Intervertebral disc space heights are otherwise preserved. No acute fracture. Paraspinal soft tissue is normal in appearance. XR/XR lumbar spine 2-3V IMPRESSION: Mild degenerative disc disease at L5-S1. No acute osseous abnormality. Electronically signed by: Sina Gooden DO 03/15/2024 03:34 PM EDT External Record Review External record reviewed: Inpatient record Prescription Management I considered prescription management with: Pain Medication (Tylenol, ibuprofen) and Other (flexeril, lido patch) Social Determinants Patient?s care significantly limited by Social Determinants of Health including: Other Social Determinant of Health Critical Care Time Critical Care Time Critical Care Time: No Discharge Plan Discharge Clinical Impression: Lumbar paraspinal muscle spasm Patient Disposition: Home, Self-Care Instructions: Muscle Spasm (ED), Back Pain (ED) Additional Instructions: You were evaluated in the Emergency Department today for your back pain.? Your evaluation did not show signs of medical conditions requiring emergent intervention at this time. Avoid bending, lifting, or twisting. Use ice several times per day for 20 minutes at a time for the next 48 hours and then change to heat. We recommend you take 600mg ibuprofen every 6 hours or tylenol 650mg every 6 hours as needed for pain. If needed, you can alternate these medications so that you take one medication every 3 hours. For example, at noon take ibuprofen, then at 3pm take tylenol, then at 6pm take ibuprofen. Flexeril is a muscle relaxer. Take this at night as it makes you drowsy. Do not drive, drink alcohol, or operate machinery while taking it. Lidoderm patches are numbing patches. Apply to painful areas. Please schedule an appointment for follow-up with your primary care provider this week for further evaluation of your symptoms. Return to the Emergency Department if you experience worsening back pain, difficulty walking, fevers, numbness, tingling, incontinence, or any other concerning symptoms. In the case of an emergency call 911. Prescriptions: New cyclobenzaprine 5 mg tablet 5 mg PO Q8H PRN (Reason: muscle spasm) Qty: 7 0RF lidocaine [Lidoderm] 5 % adhesive patch,medicated 1 patch topical DAILY Qty: 15 0RF Rx Instructions: leave on most painful area for up to 12 hrs No Action pyridoxine (vitamin B6) 25 mg tablet 25 mg PO TID 30 Days Qty: 90 1RF Unisom (doxylamine) 25 mg tablet 12.5 mg PO BEDTIME PRN (Reason: sleep) 30 Days Qty: 15 0RF Rx Instructions: Take 1/2 tablet at bedtime prednisone 20 mg tablet 40 mg PO DAILY 7 Days Qty: 14 0RF morphine 15 mg tablet 15 mg PO Q4-6H PRN (Reason: pain) Qty: 14 0RF Rx Instructions: Patient may request partial fill; Partial Fill upon patient request. ondansetron 4 mg tablet,disintegrating 4 mg PO Q6-8H PRN (Reason: nausea and vomiting) Qty: 14 0RF amoxicillin-pot clavulanate 875-125 mg tablet 1 tab PO BID Qty: 19 0RF cefuroxime axetil 500 mg tablet 500 mg PO BID 7 Days Qty: 14 0RF phenazopyridine [Pyridium] 100 mg tablet 100 mg PO TID Qty: 5 0RF ondansetron 4 mg tablet,disintegrating 4 mg PO Q8H PRN (Reason: nausea and vomiting) Qty: 6 0RF cyclobenzaprine 10 mg tablet 10 mg PO TID Qty: 12 0RF acetaminophen [Tylenol 8 Hour] 650 mg tablet extended release 650 mg PO Q12H PRN (Reason: pain) Qty: 30 0RF Vitamin Plus Low Iron 27 mg iron- 1 mg tablet 1 tab PO DAILY Qty: 30 11RF prednisone 20 mg tablet 20 mg PO DAILY famotidine 20 mg tablet 20 mg PO BID PRN (Reason: heartburn) 14 Days Qty: 30 0RF Referrals: Quincy Santamaria MD [Primary Care Provider] - Stand Alone Forms: Work/School Release Print Language: Yi
[2024-03-15 14:03] VITALS: BP 116/72; PULSE 85; RESP 17; O2SAT 100
[2024-03-15] MEDS: Acetaminophen 325 MG TABLET 975 MG PO (15:24)
[2024-03-15] MEDS: Lidocaine 4 % Patch ADH..PATCH 1 PATCH TRANSDERMA (15:25)
[2024-03-15 15:54] VITALS: BP 118/72; PULSE 85; RESP 18; TEMP 36.6; O2SAT 98
== END 2024-03-15 15:54 | disposition home or self-care (01) ==
PROVIDERS: Emergency Provider Emergency Medicine; PCP Internal Medicine Medical Oncology
DX: M54.50 Low back pain, unspecified (principal); M62.830 Muscle spasm of back
CPT/HCPCS: 72100; 99283

== ENCOUNTER 2024-04-01 19:46 | Emergency (ER) | payer OTHER, SELFPAY ==
--- NOTE | ~2024-04-01 | XR_ITS ---
EXAMINATION: XR CHEST CLINICAL INFORMATION: Cough COMPARISON: None available. TECHNIQUE: Frontal view of the chest was obtained. FINDINGS: No significant abnormality is noted involving the heart, lungs, mediastinum, bony thorax or soft tissues. XR/XR chest 1V IMPRESSION: Unremarkable examination. Electronically signed by: Carlos Schumacher MD 04/01/2024 10:25 PM EDT RP
--- NOTE | 2024-04-01 19:56 | ED_ITS ---
HPI - URI/Sore Throat General Chief Complaint: Upper Respiratory Symptoms Stated Complaint: sob Time Seen by Provider: 04/01/24 20:45 Source: patient Mode of arrival: ambulatory Limitations: no limitations History of Present Illness ED Provider: marla BELLA Narrative: Patient's coughing for last 4 5 days mostly dry cough with chills no other family member sick but with the kids go to school they have pertussis Related Data Home Medications ?Medication ?Instructions ?Recorded ?Confirmed prednisone 20 mg tablet 20 mg PO DAILY 06/29/21 06/29/21 Previous Rx's ?Medication ?Instructions ?Recorded vitamin with calcium 1 tab PO DAILY #30 tabs 02/19/21 no.72-iron 27 mg-folic acid 1 mg tablet ( Vitamins Plus Low Iron) doxylamine succinate 25 mg tablet 12.5 mg (1/2 x 25 mg) PO BEDTIME 06/19/21 (Unisom (doxylamine)) PRN sleep 30 days #15 tabs pyridoxine (vitamin B6) 25 mg 25 mg PO TID 30 days #90 tabs 06/19/21 tablet famotidine 20 mg tablet 20 mg PO BID PRN heartburn 2 weeks 07/30/21 #30 tabs morphine 15 mg immediate release 15 mg PO Q4-6H PRN pain #14 tabs 12/28/21 tablet ondansetron 4 mg disintegrating 4 mg PO Q6-8H PRN nausea and 12/28/21 tablet vomiting #14 tabs prednisone 20 mg tablet 40 mg (2 x 20 mg) PO DAILY 7 days 12/28/21 #14 tabs amoxicillin 875 mg-potassium 1 tab PO BID #19 tabs 09/13/23 clavulanate 125 mg tablet cefuroxime axetil 500 mg tablet 500 mg PO BID 7 days #14 tabs 12/12/23 phenazopyridine 100 mg tablet 100 mg PO TID 5 doses #5 tabs 12/12/23 (Pyridium) acetaminophen 650 mg 650 mg PO Q12H PRN pain #30 tabs 12/26/23 tablet,extended release (Tylenol 8 Hour) cyclobenzaprine 10 mg tablet 10 mg PO TID #12 tabs 12/26/23 ondansetron 4 mg disintegrating 4 mg PO Q8H PRN nausea and 12/26/23 tablet vomiting #6 tabs cyclobenzaprine 5 mg tablet 5 mg PO Q8H PRN muscle spasm #7 03/15/24 tabs lidocaine 5 % topical patch 1 patch topical DAILY #15 ea 03/15/24 (Lidoderm) azithromycin 500 mg tablet 500 mg PO DAILY 3 days #3 tabs 04/01/24 (Zithromax) benzonatate 200 mg capsule 200 mg PO TID PRN cough #20 caps 04/01/24 cefuroxime axetil 500 mg tablet 500 mg PO BID 7 days #14 tabs 04/01/24 Allergies Allergy/AdvReac Type Severity Reaction Status Date / Time aspirin [ASPIRIN] Allergy Intermediate PT HAS H/O Verified 04/01/24 19:57 LOW PALTELETS Review of Systems Review of Systems: Yes all other systems are reviewed and are negative [facility] Past Medical History Medical History Miscarriage Migraine Chronic ITP (idiopathic thrombocytopenia) Family History Family History Father Migraine Mother Migraine Social History Social History Household Members: Children Housing: Apartment Alcohol intake: never Patient Tobacco Use Status: Former Tobacco user Special vivian needs: No Agree to transfusion: Yes Advance Directives: No Advance Directives Information Provided: No Sexual orientation: Straight/Heterosexual Gender identity: Female Physical Exam Vital Signs: Vital Signs: Last Vital Signs Pulse 124 H 04/01/24 19:57 Resp 18 04/01/24 19:57 BP 115/77 04/01/24 19:57 Pulse Ox 100 04/01/24 19:57 O2 Del Method Room Air 04/01/24 19:57 BMI result Body Mass Index 41.1 Appearance: Alert. Oriented X3. No acute distress. ENT: Pharynx normal. Oral Mucosa moist Neck: Normal inspection. Neck supple. CVS: Normal heart rate and rhythm. Pulses normal. Respiratory: No respiratory distress. Equal air entry bilateral, no wheezing/rales/rhonchi prolonged expiration Abdomen: Soft and nontender. Bowel sounds are present, no mass palpable, no CVA tenderness Skin: Skin warm and dry. Normal skin color. Normal skin turgor. Extremities: No lower extremity edema. No calf tenderness Neuro: Oriented X 3. Course Course Course Narrative: This is a rapid medical exam. Deferred additional HPI, ROS, PE to primary provider. 33 yo female with history of migraines, chronic ITP here with complaints of sore throat, coughing, x 1 week. Will obtain viral testing, strep testing NEIL Reyes APRN Medical Decision Making Lab Data [facility] Lab Attestation statement: I reviewed the patient's lab results. Labs: Lab Results 04/01/24 Range/Units 20:05 Influenza Type A (PCR) NEGATIVE (Negative) Influenza Type B (PCR) NEGATIVE (Negative) RSV RNA Qual (PCR) NEGATIVE (Negative) SARS-CoV-2 RNA (RT-PCR) NEGATIVE (Negative) S. pyogenes GrpA [place] Negative (Negative) Independent Interpretation I performed an independent interpretation of an: Plain X-Ray Interpretation: Right lower lobe infiltrate Discharge Plan Discharge Clinical Impression: Pneumonia Patient Disposition: Home, Self-Care Instructions: Community Acquired Pneumonia (ED) Additional Instructions: Take antibiotic as prescribed Your COVID flu strep RSV negative Sample sent for pertussis Cough drops as prescribed Prescriptions: New azithromycin [Zithromax] 500 mg tablet 500 mg PO DAILY 3 Days Qty: 3 0RF benzonatate 200 mg capsule 200 mg PO TID PRN (Reason: cough) Qty: 20 0RF cefuroxime axetil 500 mg tablet 500 mg PO BID 7 Days Qty: 14 0RF No Action pyridoxine (vitamin B6) 25 mg tablet 25 mg PO TID 30 Days Qty: 90 1RF Unisom (doxylamine) 25 mg tablet 12.5 mg PO BEDTIME PRN (Reason: sleep) 30 Days Qty: 15 0RF Rx Instructions: Take 1/2 tablet at bedtime prednisone 20 mg tablet 40 mg PO DAILY 7 Days Qty: 14 0RF morphine 15 mg tablet 15 mg PO Q4-6H PRN (Reason: pain) Qty: 14 0RF Rx Instructions: Patient may request partial fill; Partial Fill upon patient request. ondansetron 4 mg tablet,disintegrating 4 mg PO Q6-8H PRN (Reason: nausea and vomiting) Qty: 14 0RF amoxicillin-pot clavulanate 875-125 mg tablet 1 tab PO BID Qty: 19 0RF cefuroxime axetil 500 mg tablet 500 mg PO BID 7 Days Qty: 14 0RF phenazopyridine [Pyridium] 100 mg tablet 100 mg PO TID Qty: 5 0RF ondansetron 4 mg tablet,disintegrating 4 mg PO Q8H PRN (Reason: nausea and vomiting) Qty: 6 0RF cyclobenzaprine 10 mg tablet 10 mg PO TID Qty: 12 0RF acetaminophen [Tylenol 8 Hour] 650 mg tablet extended release 650 mg PO Q12H PRN (Reason: pain) Qty: 30 0RF cyclobenzaprine 5 mg tablet 5 mg PO Q8H PRN (Reason: muscle spasm) Qty: 7 0RF lidocaine [Lidoderm] 5 % adhesive patch,medicated 1 patch topical DAILY Qty: 15 0RF Rx Instructions: leave on most painful area for up to 12 hrs Vitamin Plus Low Iron 27 mg iron- 1 mg tablet 1 tab PO DAILY Qty: 30 11RF prednisone 20 mg tablet 20 mg PO DAILY famotidine 20 mg tablet 20 mg PO BID PRN (Reason: heartburn) 14 Days Qty: 30 0RF Print Language: Pashto
[2024-04-01 19:57] VITALS: BP 115/77; PULSE 124; RESP 18; O2SAT 100; BMI 41.1
--- NOTE | 2024-04-01 19:59 | PC.NURSE ---
throat is WNL. no exudate/ no reddness.
[2024-04-01 20:23] LABS: IDNOW Serial# 08D9AD1C; Strep A Nucleic Acid Negative (Negative)
[2024-04-01 20:53] LABS: Influenza A PCR NEGATIVE (Negative); Influenza B PCR NEGATIVE (Negative); Resp Syncy Virus RNA Qual PCR NEGATIVE (Negative); SARS COV2 PCR INHOUSE NEGATIVE (Negative)
[2024-04-01] MEDS: Azithromycin 500 MG TABLET PO (21:27)
[2024-04-01] MEDS: cefuroxime axetiL 500 MG TABLET PO (21:27)
[2024-04-01] MEDS: Benzonatate 100 MG CAPSULE 200 MG PO (21:28)
[2024-04-01 21:36] VITALS: BP 115/77; PULSE 124; RESP 18; TEMP -17.7; TEMP 0; O2SAT 100
[2024-04-08 19:08] LABS: Pertussis Testing <1 IU/mL
== END 2024-04-01 21:37 | disposition home or self-care (01) ==
PROVIDERS: Nurse Practitioner Family; Emergency Provider Internal Medicine; PCP Internal Medicine Medical Oncology
DX: J18.9 Pneumonia, unspecified organism (principal); R06.02 Shortness of breath; R05.9 Cough, unspecified; Z03.818 Encounter for observation for suspected exposure to other biological agents ruled out; Z79.899 Other long term (current) drug therapy
CPT/HCPCS: 0241U; 36415; 71045; 86615; 87651; 99282; 99283

== ENCOUNTER 2024-07-16 13:30 | Emergency (ER) | payer OTHER, SELFPAY ==
[2024-07-16 13:55] VITALS: BP 123/76; PULSE 92; RESP 20; TEMP 36.5; O2SAT 100; BMI 41.2
--- NOTE | 2024-07-16 13:55 | ED.GENADULT ---
HPI - General Adult General Chief complaint: Upper Respiratory Symptoms Stated complaint: fever 13 wks Time Seen by Provider: 07/16/24 22:01 Source: patient Limitations: no limitations History of Present Illness ED Provider: Ruth Ann Maldonado PA-C HPI narrative: 33-year-old female who is currently 13 weeks , , presents with sore throat, nasal congestion and fevers x3 days. Related Data Home Medications ?Medication ?Instructions ?Recorded ?Confirmed prednisone 20 mg tablet 20 mg PO DAILY 06/29/21 06/29/21 Previous Rx's ?Medication ?Instructions ?Recorded vitamin with calcium 1 tab PO DAILY #30 tabs 02/19/21 no.72-iron 27 mg-folic acid 1 mg tablet ( Vitamins Plus Low Iron) doxylamine succinate 25 mg tablet 12.5 mg (1/2 x 25 mg) PO BEDTIME 06/19/21 (Unisom (doxylamine)) PRN sleep 30 days #15 tabs pyridoxine (vitamin B6) 25 mg 25 mg PO TID 30 days #90 tabs 06/19/21 tablet famotidine 20 mg tablet 20 mg PO BID PRN heartburn 2 weeks 07/30/21 #30 tabs morphine 15 mg immediate release 15 mg PO Q4-6H PRN pain #14 tabs 12/28/21 tablet ondansetron 4 mg disintegrating 4 mg PO Q6-8H PRN nausea and 12/28/21 tablet vomiting #14 tabs prednisone 20 mg tablet 40 mg (2 x 20 mg) PO DAILY 7 days 12/28/21 #14 tabs amoxicillin 875 mg-potassium 1 tab PO BID #19 tabs 09/13/23 clavulanate 125 mg tablet cefuroxime axetil 500 mg tablet 500 mg PO BID 7 days #14 tabs 12/12/23 phenazopyridine 100 mg tablet 100 mg PO TID 5 doses #5 tabs 12/12/23 (Pyridium) acetaminophen 650 mg 650 mg PO Q12H PRN pain #30 tabs 12/26/23 tablet,extended release (Tylenol 8 Hour) cyclobenzaprine 10 mg tablet 10 mg PO TID #12 tabs 12/26/23 ondansetron 4 mg disintegrating 4 mg PO Q8H PRN nausea and 12/26/23 tablet vomiting #6 tabs cyclobenzaprine 5 mg tablet 5 mg PO Q8H PRN muscle spasm #7 03/15/24 tabs lidocaine 5 % topical patch 1 patch topical DAILY #15 ea 03/15/24 (Lidoderm) azithromycin 500 mg tablet 500 mg PO DAILY 3 days #3 tabs 04/01/24 (Zithromax) benzonatate 200 mg capsule 200 mg PO TID PRN cough #20 caps 04/01/24 cefuroxime axetil 500 mg tablet 500 mg PO BID 7 days #14 tabs 04/01/24 fluticasone furoate 27.5 2 spray intranasal DAILY PRN nasal 07/16/24 mcg/actuation nasal congestion #6.6 mL spray,suspension (Flonase Sensimist) Allergies Allergy/AdvReac Type Severity Reaction Status Date / Time aspirin [ASPIRIN] Allergy Intermediate PT HAS H/O Verified 07/16/24 13:58 LOW PALTELETS Review of Systems Review of Systems: Yes all other systems are reviewed and are negative Constitutional: Constitutional: Reports fatigue and Reports fever(s) ENT: Reports nasal congestion and Reports sore throat Cardiovascular: Cardiovascular: Denies chest pain and Denies dyspnea Respiratory: Respiratory: Denies cough, Denies dyspnea and Denies wheezing Endocrine: Endocrine: Reports fatigue Allergic/Immunologic: Allergic/Immunologic: Denies wheezing PMFSH Past Medical History Attestation statement: The following information was validated with the patient. Medical History Miscarriage Migraine Chronic ITP (idiopathic thrombocytopenia) Family History Family History Father Migraine Mother Migraine Social History Social History Household Members: Children Housing: Apartment Alcohol intake: never Patient Tobacco Use Status: Former Tobacco user Special vivian needs: No Agree to transfusion: Yes Advance Directives: No Advance Directives Information Provided: No Do you have a plan to hurt others: No Plan Sexual orientation: Straight/Heterosexual Gender identity: Female Physical Exam ED Vital Signs: Vital Signs - 24 hr 07/16/24 13:55 Temperature 97.7 F Pulse Rate 92 Respiratory Rate 20 Blood Pressure 123/76 Pulse Oximetry 100 Oxygen Delivery Method Room Air BMI result Body Mass Index 41.2 Const Other: Alert well-appearing Orientation/consciousness: patient oriented x3 HENMT Other: 0P with mild erythema no exudate, uvula midline Resp Effort & Inspection: normal respiratory effort Cardio Other: Normal peripheral perfusion Skin Other: Warm dry no rash Neuro General: patient oriented x3, gait normal, no focal motor deficits and CN's II-XI intact bilaterally Psych Other: Cooperative Course Course Course Narrative: RME, this is a rapid medical exam performed by Zaki Doan please refer to primary provider for complete H&P- 33-year-old female presents for evaluation of congestion, fevers. She reports her symptoms started 2 days ago. She is approximately 13 weeks , . Patient denies abdominal pain, vaginal bleeding or discharge. Her OBGYN is at [facility]. Plan for viral swabs and strep swab Medical Decision Making Medical Decision Making MDM Narrative: 33-year-old female who is currently 13 weeks , , presents with sore throat, nasal congestion and fevers x3 days. 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 Her primary complaint is for the nasal congestion, she has been using nasal saline sprays. We will send with fluticasone. No exam finding consistent with a RPA or DRILL PRESS O[employer] I have independently reviewed the following tests: Labs: Strep screen negative, positive for influenza Lab Data Labs: Lab Results 07/16/24 07/16/24 Range/Units 14:17 21:03 Influenza Type A (PCR) POSITIVE A (Negative) Influenza Type B (PCR) NEGATIVE (Negative) RSV RNA Qual (PCR) NEGATIVE (Negative) SARS-CoV-2 RNA (RT-PCR) NEGATIVE (Negative) S. pyogenes GrpA [place] Negative (Negative) Discharge Plan Discharge Clinical Impression: Influenza A Patient Disposition: Home, Self-Care Instructions: Influenza (ED) Additional Instructions: You were found to be positive for influenza a, the strep throat screen was negative. See home care instructions. Keep using the nasal saline sprays. You can use the fluticasone nasal as needed for further congestion. Follow up with your primary care provider as needed Prescriptions: New Flonase Sensimist 27.5 mcg/actuation spray,suspension 2 spray intranasal DAILY PRN (Reason: nasal congestion) Qty: 6.6 0RF Rx Instructions: into each nostril No Action pyridoxine (vitamin B6) 25 mg tablet 25 mg PO TID 30 Days Qty: 90 1RF Unisom (doxylamine) 25 mg tablet 12.5 mg PO BEDTIME PRN (Reason: sleep) 30 Days Qty: 15 0RF Rx Instructions: Take 1/2 tablet at bedtime prednisone 20 mg tablet 40 mg PO DAILY 7 Days Qty: 14 0RF morphine 15 mg tablet 15 mg PO Q4-6H PRN (Reason: pain) Qty: 14 0RF Rx Instructions: Patient may request partial fill; Partial Fill upon patient request. ondansetron 4 mg tablet,disintegrating 4 mg PO Q6-8H PRN (Reason: nausea and vomiting) Qty: 14 0RF azithromycin [Zithromax] 500 mg tablet 500 mg PO DAILY 3 Days Qty: 3 0RF benzonatate 200 mg capsule 200 mg PO TID PRN (Reason: cough) Qty: 20 0RF cefuroxime axetil 500 mg tablet 500 mg PO BID 7 Days Qty: 14 0RF amoxicillin-pot clavulanate 875-125 mg tablet 1 tab PO BID Qty: 19 0RF cefuroxime axetil 500 mg tablet 500 mg PO BID 7 Days Qty: 14 0RF phenazopyridine [Pyridium] 100 mg tablet 100 mg PO TID Qty: 5 0RF ondansetron 4 mg tablet,disintegrating 4 mg PO Q8H PRN (Reason: nausea and vomiting) Qty: 6 0RF cyclobenzaprine 10 mg tablet 10 mg PO TID Qty: 12 0RF acetaminophen [Tylenol 8 Hour] 650 mg tablet extended release 650 mg PO Q12H PRN (Reason: pain) Qty: 30 0RF cyclobenzaprine 5 mg tablet 5 mg PO Q8H PRN (Reason: muscle spasm) Qty: 7 0RF lidocaine [Lidoderm] 5 % adhesive patch,medicated 1 patch topical DAILY Qty: 15 0RF Rx Instructions: leave on most painful area for up to 12 hrs Vitamin Plus Low Iron 27 mg iron- 1 mg tablet 1 tab PO DAILY Qty: 30 11RF prednisone 20 mg tablet 20 mg PO DAILY famotidine 20 mg tablet 20 mg PO BID PRN (Reason: heartburn) 14 Days Qty: 30 0RF Print Language: Zambian
[2024-07-16 15:13] LABS: Influenza A PCR POSITIVE (Negative); Influenza B PCR NEGATIVE (Negative); Resp Syncy Virus RNA Qual PCR NEGATIVE (Negative); SARS COV2 PCR INHOUSE NEGATIVE (Negative)
[2024-07-16 21:16] LABS: IDNOW Serial# 58CA691E; Strep A Nucleic Acid Negative (Negative)
--- OUTSIDE RECORDS SUMMARY | 2024-07-16 21:55 | XMS_ITS | Clinical Summary ---
[facility] Organization [facility] Address [address] [place] [address] Care Team Providers Care Doughnut Dough Mixer Name Role Phone Unavailable Primary Care Provider Unavailabl e Social History Tobacco Use Types Packs/Day Years Used Date Smoking Tobacco: Never Assessed Comments Unknown Sex and Gender Information Value Date Recorded Sex Assigned at Not on file Legal Sex Female 10:45 AM EST Gender Identity Not on file Sexual Orientation Not on file Plan of Treatment Health Maintenance Due Date Last Done Comments DTaP,Tdap,and Td Vaccines (1 - Tdap) 11/24/2007 Hepatitis B Vaccines (1 of 3 - 19+ 3-dose series) 11/24/2007 Cervical Cancer Screening: P ap Smear 2009 Depression Screening 07/05/2023 HIV Screening 07/05/2023 Hepatitis C Screening 07/05/2023 Social Influencers of Health Screening 07/05/2023 COVID-19 Vaccine ( - 2023-2 5 season) 2024 Influenza Vaccine (#1) 2024 HIB Vaccines Aged Out No longer eligi ble based on patient's age to complete this topic HPV Vaccines Aged Out No longer eligi ble based on patient's age to complete this topic Hepatitis A Vaccines Aged Out No long er eligible based on patient's age to complete this topic IPV Vaccines Aged Out No longer eligi ble based on patient's age to complete this topic MMR Vaccines Aged Out No longer eligi ble based on patient's age to complete this topic Meningococcal ACWY Vaccine Aged Out N o longer eligible based on patient's age to complete this topic Pneumococcal Vaccine: Pediat rics (0 to 5 Years) and At-Risk Patients (6 to 64 Years) Aged Out No longer eligible b ased on patient's age to complete this topic RSV Immunization Patients Un jammie 20 months Aged Out No longer eligible b ased on patient's age to complete this topic Varicella Vaccines Aged Out No longer eligible based on patient's age to complete this topic
--- OUTSIDE RECORDS SUMMARY | 2024-07-16 21:56 | XMS_ITS ---
Author Organization Quincy Santamaria III, MD Address [address] [place] [address] [place] [address] Care Team Providers Care Certified Medical Records Coder Name Role Phone Quincy Santamaria Primary Care Provider REASON FOR VISIT Message Social History Sex Assigned At : Social History Observation Description Sex Assigned At Female Encounters Encounter Location Date Provider Diagnosis Quincy Santamaria III, MD [address] [place] [address] [address] [place] [id number] 06/26/2024 Quincy Santamaria Plan Of Treatment No Information Progress Notes * Avtar MILIANDOB:1990 (33 yo F)Acc No.[id number]:06/26/2024 Patient:?Avtar MILIAN :1990???Age:33 Y???Sex:Female Address:[address] [place] [address] [place] [address] * true * Date:? Generated for Printi sandee/Marcial/eTransmitting on:?07/16/2024 09:55 PM EST
--- OUTSIDE RECORDS SUMMARY | 2024-07-16 21:56 | XMS_ITS ---
Author Organization Quincy Santamaria III, MD Address [address] [place] [address] [place] [address] Care Team Providers Care Cycle Director Name Role Phone Quincy Santamaria Primary Care Provider Allergies Allergen (clinical drug ingredient) Drug/Non Drug Allergy documented on EMR Reaction Allergy Type Onset Date Status aspirin Aspirin Low platelets Drug Allergy Act dae REASON FOR VISIT follow up Medications Medication SIG (Take, Route, Frequency, Duration) Notes Start Date End Date Status Benzonatate 200 MG TAKE 1 CAPSULE ORALL Y 3 TIMES A DAY NEEDED FOR COUGH Oral Active Azithromycin 500 MG TAKE 1 TABLET BY VÍCTOR TH EVERY DAY FOR 3 DAYS Oral Active Vitamin D 25 MCG (1000 UT) 1 tablet Oral ly Once a day 04/24/2022 Active Nplate 250 MCG as directed Subcutan eous 250 MCG administered every 2 weeks 09/20/2019 Active Cefuroxime Axetil 500 MG TAKE 1 TABLET O RALLY 2 TIMES A DAY FOR 7 DAYS Oral Active Ferrous Sulfate 325 (65 Fe) MG 1 tablet Orally Once a day 04/24/2022 Active Triamcinolone Acetonide 0.1 apply to aff ected area twice a day Externally Twice a day Active Loratadine 10 MG 1 tablet Orally Once a day 10/27/2020 Active Acetaminophen 325 MG 1 tablet as needed Orally every 6 hrs 05/15/2021 Active Social History Tobacco Use: Social History Observation Description Date Details (start date - stop date) Former Smoker NA - NA Sex Assigned At : Social History Observation Description Sex Assigned At Female Tobacco Use/Smoking Question Answer Notes Patient is a former smoker How long has it been since you last smoked? > 10 years Additional Findings: Tobacco Non-User Ex-cigaret te smoker Encounters Encounter Location Date Provider Diagnosis Quincy Santamaria III, MD [address] [place] [address] [place] [address] 04/13/2024 Quincy Santamaria Immune thrombocytope yamileth purpura D69.3 Assessments Encounter Date Diagnosis (ICD Code) Assessment Notes Treat ment Notes Treatment Clinical Notes 04/13/2024 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 Plan Of Treatment Medication Medication Name Sig Start Date Stop Date Notes Benzonatate 200 MG TAKE 1 CAPSULE ORALL Y 3 TIMES A DAY NEEDED FOR COUGH Oral Azithromycin 500 MG TAKE 1 TABLET BY VÍCTOR TH EVERY DAY FOR 3 DAYS Oral Vitamin D 25 MCG (1000 UT) 1 tablet Orally Once a day 04/06 Nplate 250 MCG as directed Subcutan eous 250 MCG administered every 2 weeks 09/20/2019 Cefuroxime Axetil 500 MG TAKE 1 TABLET O RALLY 2 TIMES A DAY FOR 7 DAYS Oral Ferrous Sulfate 325 (65 Fe) MG 1 tablet Orally Once a day 04/24/2022 Triamcinolone Acetonide 0.1 apply to aff ected area twice a day Externally Twice a day Loratadine 10 MG 1 tablet Orally Once a day 10/27/2020 Acetaminophen 325 MG 1 tablet as needed Orally every 6 hrs 05/15/2021 Progress Notes * Avtar MILIANDOB:1990 (33 yo F)Acc No.[id number]:04/13/2024 Progress Notes Patient:?Avtar MILIAN Provider:?Quincy Santamaria MD :1990???Age:33 Y???Sex:Female D ate:04/13/2024 Address:[address] [place] [address] [id number] Subjective: * Chief Complaints: * ???1. Follow up. * HPI: ???COVID-19 Screening:?Questions?Have you had any new onset fever, chills, cough, congestion, sore throat, shortness of breath, muscle aches??No ?Have you been exposed to the virus within the last 10 days??No ?Have you travelled internationally in the last 10 days??No ?Have you been exposed to COVID-19 in the past??No * ROS:?General/Constitutional:?pain?only normal aches and pains.?Chills?denies.?Fatigue?admits.?Fever?denies.?ENT:?Decreased hearing?denies.?Respiratory:?Cough?denies.?Cardiovascular:?Chest pain with exertion?denies.?Dyspnea on exertion?denies.?Shortness of breath?denies.?Gastrointestinal:?Constipation?denies.?Decreased appetite?denies.?Diarrhea?denies.?Heartburn?denies.?Nausea?denies.?Rectal bleeding?denies.?Vomiting?denies.?Hematology:?bruising?denies.?petechiae?denies.?Swollen glands?none have been noted.?Genitourinary:?Frequent urination?denies.?Musculoskeletal:?Muscle aches?denies.?Painful joints?denies.?Sciatica?denies.?Weakness?denies.?Skin:?Itching?denies.?Rash?denies.?Skin lesion(s)?denies.?Neurologic:?Difficulty speaking?denies.?Dizziness?denies.?Headache?denies.?Low back pain?denies.?Psychiatric:?Depressed mood?denies.? * Medical History:?Migraine he adaches, Depression, ITP, Obesity. * Surgical History:?Denies Pas t Surgical History. * Hospitalization/Major Diagno stic Procedure:?Denies Past Hospitalization. * Family History:?Father: carlos oliva 38 yrs.?Mother: alive 41 yrs, arthritis, Lupus, fibromyalgia, migranie headaches.?1 brother(s) - healthy. 3 daughter(s) - healthy. .? There is no family history of coagulopathy or thrombophilia. She is not aware of any family history of inherited malignancies. She is not aware of any family history of mental illness or substance abuse addictions. * Social History:?Tobacco Use:?Tobacco Use/Smoking?Patient is a?former smoker ?How long has it been since you last smoked??> 10 years ?Additional Findings: Tobacco Non-User?Ex-cigarette smoker ???She is working and lives in [place], [place]. She has a supportive family. She was [place]. She has a daughter, Femi. * Medications:?Taking Triamcin olone Acetonide 0.1 Ointment apply to affected area twice a day Externally Twice a day , Taking Loratadine 10 MG Tablet 1 tablet Orally Once a day , Taking Acetaminophen 325 MG Tablet 1 tablet as needed Orally every 6 hrs , Taking Ferrous Sulfate 325 (65 Fe) MG Tablet 1 tablet Orally Once a day , Taking Vitamin D 25 MCG (1000 UT) Tablet 1 tablet Orally Once a day , Taking Nplate 250 MCG Solution Reconstituted as directed Subcutaneous 250 MCG administered every 2 weeks , Discontinued Cefuroxime Axetil 500 MG Tablet TAKE 1 TABLET ORALLY 2 TIMES A DAY FOR 7 DAYS Oral , Discontinued Benzonatate 200 MG Capsule TAKE 1 CAPSULE ORALLY 3 TIMES A DAY NEEDED FOR COUGH Oral , Discontinued Azithromycin 500 MG Tablet TAKE 1 TABLET BY MOUTH EVERY DAY FOR 3 DAYS Oral , Medication List reviewed and reconciled with the patient * Allergies:?Aspirin: Low plat elets. Objective: * Vitals:? * Examination: ???General Examination: ?GENERAL APPEARANCE:?pleasant, well nourished, well developed, in no acute distress, calm and relaxed.?HEAD:?atraumatic, normocephalic.?EYES:?eomi, perrla, anicteric, conjugate.?EARS:?normal.?NOSE:?septum intact.?ORAL CAVITY:?normal, unremarkable.?NECK/THYROID:?no jugular venous distention, no carotid bruit, thyroid normal.?LYMPH NODES:?no enlarged lymph nodes,spleen normal.?SKIN:?no suspicious lesions, anicteric.?HEART:?no clicks, gallops, murmurs, or rubs, regular rhythm, S1, S2 normal, no s3, or vascular bruits.?LUNGS:?clear to auscultation .?BREASTS:??no masses palpable bilaterally.?ABDOMEN:?bowel sounds normal, no ascites, no organomegaly, no mass.?RECTAL EXAM:?not examined.?MUSCULOSKELETAL:?extremities unremarkable, no clubbing, cyanosis or edema.?PERIPHERAL PULSES:?normal.?NEUROLOGIC:?alert and oriented, cranial nerves 2-12 grossly intact, deep tendon reflexes 2+ symmetrical, motor strength normal upper and lower extremities, sensory exam intact.?PSYCH:?alert, oriented.? 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 Plan: * Treatment: 2.?Others? Continue Cefuroxime Axetil Tablet, 500 MG, TAKE 1 TABLET ORALLY 2 TIMES A DAY FOR 7 DAYS, Oral;?Continue Benzonatate Capsule, 200 MG, TAKE 1 CAPSULE ORALLY 3 TIMES A DAY NEEDED FOR COUGH, Oral;?Continue Azithromycin Tablet, 500 MG, TAKE 1 TABLET BY MOUTH EVERY DAY FOR 3 DAYS, Oral.?? * Images: * The named appointment provid er may or may not be the originator of this progress note, and it is not deemed complete until electronically signed by the appointment provider. Sign off status: Pending * Provider:?Quincy Santamaria MD Date:?01/2024 Generated for Rani ignacio/Marcial/eTransmitting on:?07/16/2024 09:55 PM EST History and Physical Notes * HPI (History of Present Illness) Category Sub-Category Detail Notes COVID-19 Screening Questions Have you had any new onset fever, chills, cough, congestion, sore throat, shortness of breath, muscle aches?: No Have you been exposed to the virus withi n the last 10 days?: No Have you travelled internationally in [facility] last 10 days?: No Have you been exposed to COVID-19 in the past?: No Examination Category Sub-Category Detail Notes General Examination GENERAL APPEARANCE: pleasant , well nourished, well developed, in no acute distress, calm and relaxed HEAD: atraumatic, normocep halic EYES: eomi, perrla, anicte yvrose, conjugate EARS: normal NOSE: septum intact NECK/THYROID: no jugular venous di stention, no carotid bruit, thyroid normal HEART: no clicks, gallops, murmurs, or rubs, regular rhythm, S1, S2 normal, no s3, or vascular bruits LUNGS: clear to auscultatio n ABDOMEN: bowel sounds normal, no ascites, no organomegaly, no mass NEUROLOGIC: alert and oriented, cranial nerves 2-12 grossly intact, deep tendon reflexes 2+ symmetrical, motor strength normal upper and lower extremities, sensory exam intact SKIN: no suspicious lesion s, anicteric PERIPHERAL PULSES: normal BREASTS: no masses palpable b ilaterally MUSCULOSKELETAL: extremities unremark able, no clubbing, cyanosis or edema LYMPH NODES: no enlarged lymph no charisma,spleen normal RECTAL EXAM: not examined PSYCH: alert, oriented ORAL CAVITY: normal, unremarkable
--- OUTSIDE RECORDS SUMMARY | 2024-07-16 21:56 | XMS_ITS ---
Author Organization Quincy Santamaria III, MD Address [address] [place] [address] [place] [address] Care Team Providers Care Program Director/Music Director Name Role Phone Quincy Santamaria Primary Care Provider [phone] REASON FOR VISIT follow up Medications Medication SIG (Take, Route, Frequency, Duration) Notes Start Date End Date Status Cefuroxime Axetil 500 MG TAKE 1 TABLET O RALLY 2 TIMES A DAY FOR 7 DAYS Oral Active Nplate 250 MCG as directed Subcutan eous 250 MCG administered every 2 weeks 09/20/2019 Active Vitamin D 25 MCG (1000 UT) 1 tablet Oral ly Once a day 04/24/2022 Active Ferrous Sulfate 325 (65 Fe) MG 1 tablet Orally Once a day 04/24/2022 Active Acetaminophen 325 MG 1 tablet as needed Orally every 6 hrs 05/15/2021 Active Triamcinolone Acetonide 0.1 apply to aff ected area twice a day Externally Twice a day Active Azithromycin 500 MG TAKE 1 TABLET BY VÍCTOR TH EVERY DAY FOR 3 DAYS Oral Active Benzonatate 200 MG TAKE 1 CAPSULE ORALL Y 3 TIMES A DAY NEEDED FOR COUGH Oral Active Loratadine 10 MG 1 tablet Orally Once a day 10/27/2020 Active Social History Tobacco Use: Social History [...] Date Provider Diagnosis Quincy Santamaria III, MD [address] [place] [address] [place] [address] 07/02/2024 Quincy Santamaria 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 Plan Of Treatment Medication Medication Name Sig Start Date Stop Date Notes Cefuroxime Axetil 500 MG TAKE 1 TABLET O RALLY 2 TIMES A DAY FOR 7 DAYS Oral Nplate 250 MCG as directed Subcutan eous 250 MCG administered every 2 weeks 09/20/2019 Vitamin D 25 MCG (1000 UT) 1 tablet Orally Once a day 04/06 Ferrous Sulfate 325 (65 Fe) MG 1 tablet Orally Once a day 04/24/2022 Acetaminophen 325 MG 1 tablet as needed Orally every 6 hrs 05/15/2021 Triamcinolone Acetonide 0.1 apply to aff ected area twice a day Externally Twice a day Benzonatate 200 MG TAKE 1 CAPSULE ORALL Y 3 TIMES A DAY NEEDED FOR COUGH Oral Loratadine 10 MG 1 tablet Orally Once a day 10/27/2020 Progress Notes * Avtar MILIANDOB:1990 (33 yo F)Acc No.[id number]:07/02/2024 Progress Notes Patient:?Piyush MILIANlane Provider:?Quincy Santamaria MD :1990???Age:33 Y???Sex:Female D ate:07/02/2024 Address:[address] [place] [address] , [place], [id number] Subjective: * Chief Complaints: * ???1. Follow up. * HPI: ???COVID-19 Screening:?Questions?Have you had any new onset fever, chills, cough, congestion, sore throat, shortness of breath, muscle aches??No * ROS:?General/Constitutional:?pain?only normal aches and pains.?Chills?denies.?Fatigue?admits.?Fever?denies.?ENT:?Decreased hearing?denies.?Respiratory:?Cough?denies.?Cardiovascular:?Chest pain with exertion?denies.?Dyspnea on exertion?denies.?Shortness of breath?denies.?Gastrointestinal:?Constipation?denies.?Decreased appetite?denies.?Diarrhea?denies.?Heartburn?denies.?Nausea?denies.?Rectal bleeding?denies.?Vomiting?denies.?Hematology:?bruising?denies.?petechiae?denies.?Swollen glands?none have been noted.?Genitourinary:?Frequent urination?denies.?Musculoskeletal:?Muscle aches?denies.?Painful joints?denies.?Sciatica?denies.?Weakness?denies.?Skin:?Itching?denies.?Rash?denies.?Skin lesion(s)?denies.?Neurologic:?Difficulty speaking?denies.?Dizziness?denies.?Headache?denies.?Low back pain?denies.?Psychiatric:?Depressed mood?denies.? * Medical History:? * Surgical History:?No history . * Hospitalization/Major Diagno stic Procedure:?No history . * Family History:?Father: carlos oliva 38 yrs.?Mother: [...] smoker ???She is working and lives in [place], [place]. She has a supportive family. She was born in [place]. She has a daughter, Femi. * Medications:?Taking [...] 250 MCG administered every 2 weeks , Taking Cefuroxime Axetil 500 MG Tablet TAKE 1 TABLET ORALLY 2 TIMES A DAY FOR 7 DAYS Oral , Taking Benzonatate 200 MG Capsule TAKE 1 CAPSULE ORALLY 3 TIMES A DAY NEEDED FOR COUGH Oral , Taking Azithromycin 500 MG Tablet TAKE 1 TABLET BY MOUTH EVERY DAY FOR 3 DAYS Oral Objective: * Vitals:? * Examination: ???General Examination: [...] 3 TIMES A DAY NEEDED FOR COUGH, Oral.?? * Images: * The named appointment provid er may or may not be the originator of this progress note, and it is not deemed complete until electronically signed by the appointment provider. Sign off status: Pending * Provider:?Quincy Santamaria MD Date:?06/07 Generated for Rani ignacio/Marcial/Guerrerosmitting on:?07/16/2024 09:55 PM EST History and Physical Notes * HPI (History of Present Illness) Category Sub-Category Detail Notes COVID-19 Screening Questions Have you had any new onset fever, chills, cough, congestion, sore throat, shortness of breath, muscle aches?: No Examination Category Sub-Category Detail Notes General [...]
[2024-07-16 23:03] VITALS: BP 123/76; PULSE 92; RESP 20; TEMP 36.5; O2SAT 100
== END 2024-07-16 23:04 | disposition home or self-care (01) ==
PROVIDERS: Physician Assistant; Emergency Provider Emergency Medicine; PCP Internal Medicine Medical Oncology
DX: O98.511 Other viral diseases complicating pregnancy, first trimester (principal); J10.1 Influenza due to other identified influenza virus with other respiratory manifestations; Z3A.13 13 weeks gestation of pregnancy
CPT/HCPCS: 0241U; 87651; 99282; 99283